=== PATIENT | male | born 1980 | race Caucasian/White ===

== ENCOUNTER → 2018-11-02 12:23 | Outpatient (CLI) | payer BC, SELFPAY ==
[2018-11-02 14:55] LABS: BUN 16 mg/dL (7-18); Creatinine, Serum 1.04 mg/dL (0.70-1.30); EST Glomerular Filtration Rate 85 mL/min (>60); Glucose 105 mg/dL (74-106)
[2018-11-02 14:56] LABS: Anion Gap 11 (5-15); BUN/Creat Ratio 15.4 RATIO (10-20); Calcium,Total 8.7 mg/dL (8.5-10.1); Chloride 102 mmol/L (98-107); Cholesterol 362 mg/dL (200); Est Glom Filt Rate - Afr Amer 103 mL/min (>60); High Density Lipoprotein 30 mg/dL; Potassium 4.2 mmol/L (3.5-5.1); Sodium Level 139 mmol/L (136-145); Triglycerides 977 mg/dL
== END ==
PROVIDERS: Family Provider Family Medicine; PCP Family Medicine; Referring Provider Family Medicine; Visit Provider Family Medicine
DX: Z00.00 Encounter for general adult medical examination without abnormal findings (principal)
CPT/HCPCS: 36415; 80048; 80061

== ENCOUNTER → 2020-07-15 17:14 | Outpatient (CLI) | payer BC, SELFPAY | PROVIDERS: PCP Family Medicine; Visit Provider Family Medicine | DX: Z20.828 Contact with and (suspected) exposure to other viral communicable diseases (principal) | CPT/HCPCS: 87635; U0003 ==

== ENCOUNTER 2020-08-29 08:47 | Emergency (ER) | payer BC, SELFPAY ==
[2020-08-29 08:48] VITALS: BP 149/95; PULSE 83; RESP 18; TEMP 36.4; O2SAT 99; BMI 33.5
--- NOTE | 2020-08-29 09:02 | RAD_ITS ---
STUDY: X-RAY CHEST REASON FOR EXAM: Male, 40 years old. CP, TIGHTNESS DOWN CENTER, BACK PAIN TECHNIQUE: Single AP portable view of the chest. COMPARISON: Comparison is made with prior study dated 10/09/2015. FINDINGS: EKG electrodes are seen. The lungs are clear and expanded. There is no demonstrated pleural abnormality. Normal size heart. Normal mediastinum and paulo. Normal visualized pulmonary arteries. Normal visualized aortic arch and descending thoracic aorta. Normal visualized thoracic spine. Normal visualized ribs, clavicles, and shoulders. There is no demonstrated abnormality of the visualized soft tissue structures of the upper abdomen. RAD/Chest 1 View (Portable) IMPRESSION: Normal x-ray examination of the chest. Electronically Signed: Kyler Connors, at 9:34 EST , Service support ,
--- NOTE | 2020-08-29 09:02 | EKG12_ITS ---
Test Reason : CP Blood Pressure : / mmHG Vent. Rate : 083 BPM Atrial Rate : 083 BPM P-R Int : 160 ms QRS Dur : 094 ms QT Int : 378 ms P-R-T Axes : 043 026 027 degrees QTc Int : 444 ms Normal sinus rhythm Possible Inferior infarct , age undetermined Abnormal ECG Confirmed by YULY GARCIA, ROSA ELENA ([id number]), assignment desk editor MAX OSORIO ([id number]) on 08/30/2020 2:09:39 PM Referred By: AMITA Confirmed By:ROSA ELENA EMERY MD
--- NOTE | 2020-08-29 09:02 | ED.VIS.GEN ---
History of Present Illness Chief Complaint: Chest Pain Informant: Patient Narrative: 40-year-old male with a history of hypercholesterolemia and a tobacco chewer presents for the evaluation of chest pain and upper back tightness. He states for the past couple weeks he has had a midsternal discomfort that he states is very difficult to describe. He saw his primary care physician on Wednesday had an EKG and was told that it was abnormal and is waiting insurance prior authorization to schedule a stress test. He states about a month ago he was in [employer] and he states that the exercises did not cause him to have any chest pain. Nothing seems to make the pain come on. It is intermittent. Last night he began to have upper back discomfort. It was present again this morning but he wanted to be evaluated. Past Medical History - Allergies and Home Meds Allergies/Adverse Reactions: Allergies No Known Allergies Allergy (Verified 08/29/20 08:48) Primary Care Physician: Dusty Martinez MD [Primary Care Provider] - Past Medical History: - - Hypercholesterolemia Lives: Spouse/ Significant Other Smoking Status: Never smoker Drugs: None Review of Systems General: Denies: Chills, Fever, Sweats Eyes: Denies: Visual changes - bilaterally, Diplopia ENT: Denies: Rhinorrhea, Sore throat Cardiovascular: Reports: Chest pain. Denies: Palpitations Respiratory: Denies: Dyspnea, Cough, Dyspnea on exertion Gastrointestinal: Denies: Abdominal pain, Nausea, Vomiting, Diarrhea, Melena, Hematochezia Genitourinary: Denies: Dysuria, Hematuria, Frequency Musculoskeletal: Reports: Back pain. Denies: Extremity Pain Skin: Denies: Rash, Wounds Neurological: Denies: Headache, Weakness, Numbness Physical Exam Vital Signs/Narrative: Vital Signs Temp Pulse Resp BP Pulse Ox 08/29/20 08:48 97.5 F L 83 18 149/95 H 99 Inital Vital Signs reviewed: Yes General: Well nourished, Well developed, No Acute Distress Head: Normocephalic, Atraumatic Eyes: Perrl, EOMI ENT: Moist mucous membranes, No rhinorrhea Neck: Supple, Nontender Cardiovascular: Regular rate, Regular rhythm, No murmurs Respiratory: No distress, CTA bilaterally, Chest nontender Abdomen: Soft, Nontender, Nondistended, Normal bowel sounds Back: Nontender, Normal Inspection Extremities: Nontender, No edema Skin: Normal color, No rash Neurological: Alert, Oriented x3, Cranial nerves II-XII grossly intact, Normal Strength, Normal Sensation Psychological: Normal affect, Normal Mood Diagnostic/Tx/Re-eval Clinical Impression(s) from Imaging Studies Chest X-Ray 08/29/20 09:02 IMPRESSION: Normal x-ray examination of the chest. Electronically Signed: Kyler Connors, at 9:34 EST , Service support , Laboratory Last Values WBC 6.2 K/mm3 (4.4-11.0) 08/29/20 08:54 RBC 5.31 M/mm3 (4.6-6.2) 08/29/20 08:54 Hgb 15.7 g/dL (13.0-16.5) 08/29/20 08:54 Hct 45.7 % (40-54) 08/29/20 08:54 MCV 86.1 fL (80-94) 08/29/20 08:54 MCH 29.6 pg (27.0-32.0) 08/29/20 08:54 MCHC 34.4 g/dL (32-36) 08/29/20 08:54 RDW Std Deviation 38.5 fl (35.1-43.9) 08/29/20 08:54 RDW Coeff of Kenny 12.3 % (11.6-14.6) 08/29/20 08:54 Plt Count 201 K/mm3 (150-450) 08/29/20 08:54 MPV 9.3 fl (6.2-12.0) 08/29/20 08:54 Immature Gran % (Auto) 0.300 % (0.0-0.9) 08/29/20 08:54 Neut % (Auto) 49.5 % (47-70) 08/29/20 08:54 Lymph % (Auto) 44.3 % (19-41) H 08/29/20 08:54 [place] % (Auto) 4.1 % (0-10) 08/29/20 08:54 Eos % (Auto) 1.3 % (0-5) 08/29/20 08:54 Baso % (Auto) 0.5 % (0-1) 08/29/20 08:54 Absolute Neuts (auto) 3.1 X10^3/uL (2.0-7.7) 08/29/20 08:54 Absolute Lymphs (auto) 2.73 X10^3/uL (0.83-4.51) 08/29/20 08:54 Nucleated RBC % 0 % (0-5) 08/29/20 08:54 D-Dimer Quant (PE/DVT) <= 0.27 FEU/ug/m (0.27-0.49) 08/29/20 08:54 Sodium 137 mmol/L (136-145) 08/29/20 08:54 Potassium 4.1 mmol/L (3.5-5.1) 08/29/20 08:54 Chloride 102 mmol/L (98-107) 08/29/20 08:54 Carbon Dioxide 28.0 mmol/L (21.0-32.0) 08/29/20 08:54 Anion Gap 7 (5-15) 08/29/20 08:54 BUN 23 mg/dL (7-18) H 08/29/20 08:54 Creatinine 1.12 mg/dL (0.70-1.30) 08/29/20 08:54 Estim Creat Clear Calc 93.38 ml/min 08/29/20 08:54 Est GFR (MDRD) Af Amer 93 mL/min (>60) 08/29/20 08:54 Est GFR (MDRD) Non-Af 77 mL/min (>60) 08/29/20 08:54 BUN/Creatinine Ratio 20.5 RATIO (10-20) H 08/29/20 08:54 Glucose 117 mg/dL (74-106) H 08/29/20 08:54 Calcium 9.4 mg/dL (8.5-10.1) 08/29/20 08:54 Troponin I < 0.015 ng/mL (<0.045) 08/29/20 08:54 - EKG Initial EKG Interpretation: Sinus Rhythm - EKG demonstrates a normal sinus rhythm with a rate of 83. There are no concerning features of ACS or ectopy noted. - Medical Decision Making My interpretation of the plain film of the chest is no acute process. The radiologist reviewed and concurs. Troponin D-dimer negative. His heart score then is 1. We had shared decision-making regarding admission versus outpatient stress testing. He is elected outpatient stress testing which I think is reasonable. Primary care physician was updated. Patient encouraged to return if worsening or concerns. ED Disposition - Plan for ED Patient: Disposition: Home or Assisted Living Diagnosis: Chest pain Instructions: ED Chest Pain, Uncertain Cause Referrals: Dusty Martinez MD [Primary Care Provider] - Keep Charissa appointment
[2020-08-29 09:08] LABS: Absolute Lymphocyte Count 2.73 X10^3/uL (0.83-4.51); Absolute Neutrophil Count 3.1 X10^3/uL (2.0-7.7); Basophil# 0.03 X10^3/uL; Basophil% 0.5 % (0-1); Eosinophil# 0.08 X10^3/uL; Eosinophils% 1.3 % (0-5); Hematocrit 45.7 % (40-54); Hemoglobin 15.7 g/dL (13.0-16.5); Lymphocyte # 2.73 X10^3/ul (4.0); Lymphocyte % 44.3 % (19-41); Mean Corp Hgb Conc 34.4 g/dL (32-36); Mean Corpuscular Hgb 29.6 pg (27.0-32.0); Mean Corpuscular Volume 86.1 fL (80-94); Mean Platelet Vol. 9.3 fl (6.2-12.0); Monocyte# 0.25 X10^3/uL; Monocyte% 4.1 % (0-10); NRBC Flagged by Analyzer 0 % (0-5); Neutrophil # 3.05 X10^3/uL (2.7-7.7); Neutrophil % 49.5 % (47-70); Platelet Count 201 K/mm3 (150-450); RBC Distribution Width CV 12.3 % (11.6-14.6); RBC Distribution Width SD 38.5 fl (35.1-43.9); Red Blood Count 5.31 M/mm3 (4.6-6.2); White Blood Count 6.2 K/mm3 (4.4-11.0)
[2020-08-29 09:18] LABS: D-Dimer Quantitative (DVT/PE) <= 0.27 FEU/ug/m (0.27-0.49)
[2020-08-29 09:23] LABS: Anion Gap 7 (5-15); BUN 23 mg/dL (7-18); BUN/Creat Ratio 20.5 RATIO (10-20); Calcium,Total 9.4 mg/dL (8.5-10.1); Chloride 102 mmol/L (98-107); Creatinine, Serum 1.12 mg/dL (0.70-1.30); EST Glomerular Filtration Rate 77 mL/min (>60); Est Glom Filt Rate - Afr Amer 93 mL/min (>60); Estimated Creatinine Clearance 93.38 ml/min; Glucose 117 mg/dL (74-106); Potassium 4.1 mmol/L (3.5-5.1); Sodium Level 137 mmol/L (136-145)
[2020-08-29 09:58] VITALS: BP 141/87; PULSE 66; RESP 15; O2SAT 97
== END 2020-08-29 10:04 | disposition home or self-care (01) ==
PROVIDERS: Emergency Provider Emergency Medicine; PCP Family Medicine
DX: R07.9 Chest pain, unspecified (principal); E78.00 Pure hypercholesterolemia, unspecified
CPT/HCPCS: 71045; 80048; 84484; 85025; 85379; 93005; 99284; A4216

== ENCOUNTER → 2020-09-23 09:56 | Outpatient (CLI) | payer BC, SELFPAY ==
[2020-08-29 08:48] VITALS: BMI 33.5
--- NOTE | 2020-09-23 15:41 | STRESSREP ---
Stress Test Report Exercise stress test. 40-year-old man with a history of chest pain. Medications: Sertraline and meloxicam. Stress protocol: Resting EKG demonstrates normal sinus rhythm with a rate of 68 bpm normal intervals are noted resting blood pressure is 142/98 mmHg. The patient exercised according to regular Baudilio protocol for a total duration of 9 minutes and 31 seconds the maximum heart rate attained was 181 bpm which was 100% of max impacted heart rate the maximum workload was 10.9 metabolic equivalents. Patient completed 30 seconds into stage IV of the Baudilio protocol. At rest there were no ST or T wave changes noted suggest ischemia at peak exercise upsloping ST changes only were noted with no meet the criteria for ischemia. No clinical angina was noted the test was terminated due to leg fatigue. The peak blood pressure was 198/82 mmHg. Conclusion: Exercise stress test with no EKG criteria for ischemia at a high workload. No clinical angina noted. Good functional capacity.
== END ==
PROVIDERS: PCP Family Medicine; Referring Provider Family Medicine; Visit Provider Family Medicine
DX: R07.9 Chest pain, unspecified (principal)
CPT/HCPCS: 93017

== ENCOUNTER → 2020-11-11 15:30 | Outpatient (CLI) | payer BC, SELFPAY | LOC: MFPLAB 15:32 → LABSPEC 15:33 | PROVIDERS: PCP Family Medicine; Referring Provider Family Medicine; Visit Provider Family Medicine | DX: Z20.822 Contact with and (suspected) exposure to COVID-19 (principal) | CPT/HCPCS: 87635; U0005; U0003 ==

== ENCOUNTER 2021-11-27 08:33 | Outpatient (CLI) | payer BC, SELFPAY ==
[2021-11-27 11:51] LABS: ALB/GLOB Ratio 1.5 RATIO (0.9-2.4); AST(SGOT) 47 U/L (15-37); Alanine Aminotransfer ALT/SGPT 61 U/L (16-61); Albumin, Serum 4.4 g/dL (3.2-5.0); Alkaline Phosphatase 88 U/L (45-117); Anion Gap 7 (5-15); BUN 18 mg/dL (7-18); BUN/Creat Ratio 17.5 RATIO (10-20); Chloride 105 mmol/L (98-107); Cholesterol 270 mg/dL (200); Creatinine, Serum 1.03 mg/dL (0.70-1.30); EST Glomerular Filtration Rate 84 mL/min (>60); Est Glom Filt Rate - Afr Amer 102 mL/min (>60); Glucose 156 mg/dL (74-106); High Density Lipoprotein 19 mg/dL; Potassium 4.4 mmol/L (3.5-5.1); Protein, Total 7.4 g/dL (6.4-8.2); Sodium Level 136 mmol/L (136-145); Triglycerides 1642 mg/dL
== END 2021-11-27 23:59 | disposition home or self-care (01) ==
LOC: MFPLAB 08:34
PROVIDERS: PCP Family Medicine; Referring Provider Family Medicine; Visit Provider Family Medicine
DX: E78.5 Hyperlipidemia, unspecified (principal)
CPT/HCPCS: 36415; 80053; 80061

== ENCOUNTER → 2022-03-02 | Outpatient (CLI) | payer BC, SELFPAY ==
[2022-03-02 15:23] LABS: Absolute Lymphocyte Count 2.35 X10^3/uL (0.83-4.51); Absolute Neutrophil Count 2.9 X10^3/uL (2.0-7.7); Basophil# 0.04 X10^3/uL; Basophil% 0.7 % (0-1); Eosinophil# 0.07 X10^3/uL; Eosinophils% 1.3 % (0-5); Hematocrit 41.2 % (40-54); Hemoglobin 13.7 g/dL (13.0-16.5); Lymphocyte # 2.35 X10^3/ul (0.83-4.51); Mean Corp Hgb Conc 33.3 g/dL (32-36); Mean Corpuscular Hgb 28.8 pg (27.0-32.0); Mean Corpuscular Volume 86.7 fL (80-94); Mean Platelet Vol. 9.4 fl (6.2-12.0); Monocyte# 0.23 X10^3/uL; Monocyte% 4.1 % (0-10); NRBC Flagged by Analyzer 0 % (0-5); Neutrophil # 2.89 X10^3/uL (2.7-7.7); Neutrophil % 51.5 % (47-70); Platelet Count 165 K/mm3 (150-450); RBC Distribution Width CV 13.9 % (11.6-14.6); RBC Distribution Width SD 44.3 fl (35.1-43.9); Red Blood Count 4.75 M/mm3 (4.6-6.2); White Blood Count 5.6 K/mm3 (4.4-11.0)
[2022-03-02 15:47] LABS: ALB/GLOB Ratio 1.6 RATIO (0.9-2.4); AST(SGOT) 38 U/L (15-37); Alanine Aminotransfer ALT/SGPT 50 U/L (16-61); Albumin, Serum 4.5 g/dL (3.2-5.0); Alkaline Phosphatase 80 U/L (45-117); Anion Gap 8 (5-15); BUN 17 mg/dL (7-18); BUN/Creat Ratio 16.7 RATIO (10-20); Calcium,Total 9.3 mg/dL (8.5-10.1); Chloride 103 mmol/L (98-107); Cholesterol 311 mg/dL (200); Creatinine, Serum 1.02 mg/dL (0.70-1.30); EST Glomerular Filtration Rate 85 mL/min (>60); Est Glom Filt Rate - Afr Amer 103 mL/min (>60); Globulin 2.8 g/dL (2.2-4.2); Glucose 115 mg/dL (74-106); High Density Lipoprotein 24 mg/dL; Lipase 126 U/L (73-393); Protein, Total 7.3 g/dL (6.4-8.2); Sodium Level 137 mmol/L (136-145); Triglycerides 927 mg/dL
== END | disposition home or self-care (01) ==
LOC: MFPLAB 11:11
PROVIDERS: PCP Family Medicine; Visit Provider Family Medicine
DX: R10.9 Unspecified abdominal pain (principal); E78.5 Hyperlipidemia, unspecified
CPT/HCPCS: 36415; 80053; 80061; 83690; 85025

== ENCOUNTER → 2022-03-06 | Outpatient (CLI) | payer BC, SELFPAY ==
[2022-03-06 17:39] LABS: Absolute Lymphocyte Count 2.36 X10^3/uL (0.83-4.51); Basophil# 0.03 X10^3/uL; Basophil% 0.5 % (0-1); Eosinophil# 0.06 X10^3/uL; Hematocrit 42.4 % (40-54); Hemoglobin 14.4 g/dL (13.0-16.5); Lymphocyte # 2.36 X10^3/ul (0.83-4.51); Lymphocyte % 40.7 % (19-41); Mean Corpuscular Volume 85.5 fL (80-94); Mean Platelet Vol. 9.4 fl (6.2-12.0); Monocyte# 0.31 X10^3/uL; Monocyte% 5.3 % (0-10); NRBC Flagged by Analyzer 0 % (0-5); Neutrophil # 3.03 X10^3/uL (2.7-7.7); Neutrophil % 52.3 % (47-70); Platelet Count 168 K/mm3 (150-450); RBC Distribution Width CV 13.7 % (11.6-14.6); RBC Distribution Width SD 42.5 fl (35.1-43.9); Red Blood Count 4.96 M/mm3 (4.6-6.2); White Blood Count 5.8 K/mm3 (4.4-11.0)
== END | disposition home or self-care (01) ==
LOC: MFPLAB 14:28
PROVIDERS: PCP Family Medicine; Referring Provider Family Medicine; Visit Provider Family Medicine
DX: K92.1 Melena (principal)
CPT/HCPCS: 36415; 85025

== ENCOUNTER → 2022-06-09 | Outpatient (CLI) | payer BC, SELFPAY ==
[2022-06-09 20:40] LABS: CRP < 2.90 mg/L (0.0-3.0)
[2022-06-12 15:08] LABS: Endomysial Antibody IgA Negative (Negative)
[2022-06-12 20:41] LABS: Immunoglobulin A 23 mg/dL (90-386); t-Transglutaminase IgA <2 U/mL (0-3)
== END | disposition home or self-care (01) ==
LOC: MTLAB 14:00
PROVIDERS: PCP Family Medicine; Referring Provider Internal Medicine Gastroenterology; Visit Provider Internal Medicine Gastroenterology
DX: R19.7 Diarrhea, unspecified (principal)
CPT/HCPCS: 36415; 82784; 83516; 86140; 86255

== ENCOUNTER → 2023-06-04 | Outpatient (CLI) | payer OTHER, SELFPAY ==
[2023-06-04 10:38] LABS: Cholesterol 194 mg/dL (200); High Density Lipoprotein 31 mg/dL; Triglycerides 469 mg/dL
== END | disposition home or self-care (01) ==
LOC: MTLAB 09:05
PROVIDERS: PCP Family Medicine; Referring Provider Family Medicine; Visit Provider Family Medicine
DX: E78.1 Pure hyperglyceridemia (principal)
CPT/HCPCS: 36415; 80061

== ENCOUNTER → 2023-12-10 | Outpatient (CLI) | payer OTHER, SELFPAY ==
[2023-12-10 10:24] LABS: Absolute Lymphocyte Count 1.77 X10^3/uL (0.83-4.51); Absolute Neutrophil Count 2.6 X10^3/uL (2.0-7.7); Basophil# 0.02 X10^3/uL; Basophil% 0.4 % (0-1); Eosinophil# 0.04 X10^3/uL; Eosinophils% 0.9 % (0-5); Hematocrit 42.9 % (40-54); Hemoglobin 14.1 g/dL (13.0-16.5); Lymphocyte # 1.77 X10^3/ul (0.83-4.51); Lymphocyte % 37.7 % (19-41); Mean Corp Hgb Conc 32.9 g/dL (32-36); Mean Corpuscular Volume 85.1 fL (80-94); Mean Platelet Vol. 9.2 fl (6.2-12.0); Monocyte# 0.28 X10^3/uL; NRBC Flagged by Analyzer 0 % (0-5); Neutrophil # 2.57 X10^3/uL (2.7-7.7); Neutrophil % 54.6 % (47-70); Platelet Count 156 K/mm3 (150-450); RBC Distribution Width CV 14.3 % (11.6-14.6); RBC Distribution Width SD 44.2 fl (35.1-43.9); Red Blood Count 5.04 M/mm3 (4.6-6.2); White Blood Count 4.7 K/mm3 (4.4-11.0)
[2023-12-14 12:09] LABS: ANTINUCLEAR ANTIBODIES DIRECT Negative (Negative); Anti-Histone Abs 0.7 Units (0.0-0.9)
== END | disposition home or self-care (01) ==
LOC: MFPLAB 08:50
PROVIDERS: PCP Family Medicine; Visit Provider Family Medicine
DX: J32.9 Chronic sinusitis, unspecified (principal)
CPT/HCPCS: 36415; 85025; 86038; 86235; 86431

== ENCOUNTER 2025-06-10 09:42 | Emergency (ER) | payer OTHER, SELFPAY ==
[2025-06-10 09:43] VITALS: BP 140/97; PULSE 67; RESP 18; TEMP 35.5; O2SAT 98; BMI 32.4
--- NOTE | 2025-06-10 09:52 | EDS_ITS ---
HPI History of Present Illness Chief Complaint: Hyperglycemia Narrative Narrative: 44-year-old male past medical history of prediabetes, presents with his because of fatigue, dry mouth, polydipsia, and blurry vision. His mother has a blood glucose monitor and his blood sugar was elevated in the 300s. This morning he woke up, and they checked his blood sugar and it was elevated in the 300s as well. He presents to the emergency department with concern for new onset diabetes. No exacerbating or alleviating factors. PFSH PFSH Home Medications ?Medication ?Instructions ?Recorded ?Last Taken ?Type meloxicam 15 mg tablet 15 mg PO DAILY 08/29/20 Unkn own History rosuvastatin 40 mg tablet 40 mg PO QHS 08/29/20 Unknow n History sertraline 50 mg tablet 75 mg PO DAILY 08/29/20 Unkn own History benzonatate 200 mg capsule 200 mg PO TID PRN cough #20 caps 10/15/23 Unknown Rx methylprednisolone 4 mg tablets in See Rx Instructions PO PER PKG DIR 10/15/23 Unknown Rx a dose pack (Medrol (Dequan)) #21 tabs metformin 500 mg tablet 500 mg PO BID #60 tabs 06/10 Unknown Rx Allergy/AdvReac Type Severity Reaction Status Date / Time No Known Allergies Allergy Verified 06/10/25 09:43 Social History Smoking Status: Former smoker ROS ROS ED ROS Narrative Review of systems positive for dry mouth, polydipsia and perhaps polyuria. Positive fatigue. Blurry vision intermittently for 2 weeks. No fevers or chills, no nausea or vomiting, no abdominal pain. No exacerbating or alleviating factors. EXAM Physical Exam Narrative Exam Narrative: Afebrile. Vital signs noted. Nontoxic-appearing. Cardiovascular examination reveals a regular rate and rhythm. Lungs are clear to auscultation bilaterally. Abdomen is soft and nontender without guarding or rebound. Positive bowel sounds. Neurological examination is nonfocal, nonlateralizing. Awake, alert, oriented, appropriate. Const Vital Signs: 06/10/25 09:43 06/10/25 09:51 Temperature 96 F L Temperature Source Temporal Pulse Rate 67 Respiratory Rate 18 Respiratory Effort Normal Respiratory Pattern Normal Blood Pressure 140/97 H Blood Pressure Mean 111 Pulse Ox 98 Oxygen Delivery Method Room Air MDM MDM MDM Narrative Medical decision making narrative: Differential diagnosis includes but not limited to new onset type 2 diabetes/insulin resistance versus dehydration versus other electrolyte abnormality. History and physical favors new onset diabetes. CBC and CMP will be checked initially. Patient bolused normal saline 1 L intravenously. I reviewed his laboratory work and he has normal white count of 5.1 with hemoglobin 13.8, hematocrit slightly low at 38.6 and platelet count normal at 209. CMP is significant for sodium of 129 and chloride 94 with elevated glucose of 272. Anion gap normal at 15. AST and ALT slightly elevated but in review of prior labs, they have been slightly elevated in the past, mainly AST. I discussed patient with Dr. Faustin who agrees with giving the patient metformin 500 mg here, and writing a prescription to take 500 mg twice daily until seen in follow-up on Wednesday. I feel he can be discharged safely home with follow-up. Return instructions reviewed. Disposition is discharged home in stable condition. History & Record Review Discussion w/independent historian: Patient and Family Lab Data Attestation: I reviewed the patient's lab results. Labs: Laboratory Results - last 24 hr 06/10/25 10:00 WBC 5.1 RBC 4.74 Hgb 13.8 Hct 38.6 L MCV 81.4 MCH 29.1 MCHC 35.8 RDW Std Deviation 36.4 RDW Coeff of Kenny 12.4 Plt Count 209 MPV 9.9 Immature Gran % (Auto) 0.400 Neut % (Auto) 50.1 Lymph % (Auto) 42.6 H [place] % (Auto) 4.3 Eos % (Auto) 2.0 Baso % (Auto) 0.6 Absolute Neuts (auto) 2.6 Absolute Lymphs (auto) 2.17 Nucleated RBC % 0.4 Sodium 129 L Potassium 4.1 Chloride 94 L Carbon Dioxide 19.9 L Anion Gap 15 BUN 16 Creatinine 1.01 Estim Creat Clear Calc 118.71 Est GFR (MDRD) Non-Af 94 BUN/Creatinine Ratio 15.8 Glucose 272 H Calcium 9.1 Total Bilirubin 0.43 AST 40 H ALT 62 H Alkaline Phosphatase 128 Total Protein 6.4 Albumin 4.3 Globulin 2.1 L Albumin/Globulin Ratio 2.1 Discharge Plan Triage Chief Complaint: Hyperglycemia ED Provider: Dominic Razo Dx/Rx/DC Orders Clinical Impression: New onset type 2 diabetes mellitus, Insulin resistance syndrome Instructions: ED Diet: Diabetes, ED Hyperglycemia New Poss Diabetes Prescriptions: New metformin 500 mg tablet 500 mg PO BID Qty: 60 0RF No Action methylprednisolone [Medrol (Dequan)] 4 mg tablets,dose pack See Rx Instructions PO PER PKG DIR Qty: 21 0RF Rx Instructions: PO PER PKG DIR benzonatate 200 mg capsule 200 mg PO TID PRN (Reason: cough) Qty: 20 0RF meloxicam 15 MG tablet 15 mg PO DAILY sertraline 50 MG tablet 75 mg PO DAILY rosuvastatin 40 MG tablet 40 mg PO QHS Primary Care Provider: Preston Faustin Referrals: Dusty Martinez MD [Med Staff - Active Staff, Family Practice] Activity Restrictions/Additional Instructions: Follow-up with Dr. Faustin on Wednesday as scheduled Print Language: Kyrgyz Disposition Disposition: Home, Self Care
[2025-06-10] MEDS: 0.9% Normal Saline (1000mL) 1,000 ML 999 ML IV (10:00)
--- OUTSIDE RECORDS SUMMARY | 2025-06-10 10:11 | XMS RPT_ITS | CCD ---
Author Organization [facility] Care Team Providers Care Director Stars Name Role Phone Dr. Dusty Martinez Primary Care Provider Dr. Dusty Martinez Referring Provider [phone] JOYCE Aj Attending Provider Dusty Martinez Referring Unavailable Dusty Martinez Primary Care Unavailable Jeff Aj Attending Unavailable Lien Cabrera Referring Unavailable Lien Cabrera Attending Unavailable Dusty Martinez Primary Care Unavailable Lien Cabrera Attending Unavailable Dusty Martinez Primary Care Unavailable Unavailable Primary Care Provider UnavailShiva Mak MD Primary Care Provider Podlogar TEST DESK SUPERVISOR.Yolanda DEAN Unavailable Knoble TEST DESK SUPERVISOR.Lani DEAN Unavailable SHIVA FAUSTIN Attending UnavailSHIVA Pinto Primary Care Unavailab SHIVA Toribio Referring Unavailab SHIVA Toribio Primary Care Unavailab SHIVA Toribio Primary Care Unavailab SHIVA Toribio Attending Unavailab SHIVA Toribio Primary Care Unavailab MIGNON Majano Attending Unavailable SHIVA FAUSTIN Primary Care UnavailSHIVA Pinto Referring Unavailab SHIVA Toribio Primary Care Unavailab le Allergies Allergy Classification Reported Allergen(s) Allergy Type Date of Onset Reaction(s) Facility (10 sources) rosuvastatin; Translations: [ROSUVASTATIN] Drug Allergy 07-12-2024 Myalgia [facility] Medications Current Medications Medication Drug Class(es) Dates Sig (Normalized) Sig (Original) atorvastatin 40 mg oral tablet (4 sources) HMG-CoA Reductase Inhibitor Start: 5 End: 5 take 1 tablet by mouth once daily atorvastatin (LIPITOR) 40 mg tablet Indications: Hyperlipidemia, unspecified hyperlipidemia type Take 1 tablet by mouth once daily. 90 tablet 1 10/16/2024 04/14/2025 Active benzonatate 200 mg oral capsule (1 source) Non-narcotic Antitussive Start: 4 take 200 mg by mouth three times daily Benzonatate Active 200 MG PO THREE TIMES A DAY October 15, 2023 1:00am doxycycline hyclate 100 mg oral tablet (1 source) Tetracycline-class Drug Start: 4 End: 4 take 1 tablet by mouth twice daily doxycycline (VIBRA-TABS) 100 mg tablet Indications: Rhinosinusitis Take 1 tablet by mouth two times a day for 7 days. 14 tablet 07/30/2024 08/06/2024 Active fenofibrate 145 mg oral tablet (8 sources) Peroxisome Proliferator Receptor alpha Agonist Start: 4 End: 5 take 1 tablet by mouth once daily fenofibrate nanocrystallized (TRICOR) 145 mg tablet Indications: Hyperlipidemia, unspecified hyperlipidemia type Take 1 tablet by mouth once daily. 90 tablet 1 10/16/2024 04/14/2025 Active meloxicam 15 mg oral tablet (4 sources) Nonsteroidal Anti-inflammatory Drug Start: 0 take 15 mg by mouth once daily Meloxicam Active 15 MG PO DAILY August 29, 2020 1:00am methylPREDNISolone (2 sources) Corticosteroid Start: 4 End: 4 methylPREDNISolone (MEDROL, ELADIO,) 4 mg Dose-Pack Indications: Poison karla dermatitis Follow dosing instructions, take with food. 21 tablet 05/23/2024 05/29/2024 Active Start: 10-15-2023 take 1 tablet by mouth once Me thylprednisolone (Medrol (Eladio)) 4 mg tablets,dose pack Active 0 PO per package directions October 15, 2023 1:00am PO PER PKG DIR omeprazole 40 mg delayed release oral capsule (15 sources) Proton Pump Inhibitor Start: 10-20-2024 End: 03-25-2025 take 1 capsule by mouth once daily omeprazole (PRILOSEC) 40 mg capsule Indications: Gastroesophageal reflux disease, unspecified whether esophagitis present Take 1 capsule by mouth once daily. 90 capsule 12/25/2024 03/25/2025 Active Start: 04-24-2024 End: 10-20-2024 take 1 capsule by mouth once daily omeprazole (PRILOSEC) 20 mg capsule Take 1 capsule by mouth once daily. 90 capsule 1 07/12/2024 10/20/2024 Discontinued rosuvastatin calcium 40 mg oral tablet (4 sources) HMG-CoA Reductase Inhibitor Start: 08-29-2020 take 40 mg by mouth at bedtime Rosuvastatin Active 40 MG PO AT BEDTIME August 29, 2020 1:00am sertraline 50 mg oral tablet (17 sources) Serotonin Reuptake Inhibitor Start: 12-25-2024 sertraline (ZOLOFT) 50 mg tablet Indications: Adverse effect of drug, initial encounter Take 1 tablet by mouth once daily. Take one half tablet for 1-2 weeks then take one tablet daily 90 tablet 3 12/25/2024 Active Start: 11-05-2023 End: 12-25-2024 take 1 tablet by mouth once daily in the evening sertraline (ZOLOFT) 100 mg tablet Take 1 tablet by mouth once daily. 90 tablet 3 04/28/2024 6:31 PM EDT 11/05/2023 12/25/2024 Discontinued Start: 08-29-2020 take 75 mg by mouth once daily Sertraline Active 75 MG PO DAILY August 29, 2020 1:00am Completed/Discontinued Medications Medication Drug Class(es) Dates Sig (Normalized) Sig (Original) pitavastatin calcium 4 mg oral tablet (13 sources) HMG-CoA Reductase Inhibitor Start: 07-16-2023 End: 01-02-2025 take 1 tablet by mouth once daily pitavastatin (LIVALO) 4 mg tablet Take 1 tablet by mouth once daily. 90 tablet 3 07/12/2024 01/02/2025 Discontinued (Course of therapy completed) Problems Active Problems Problem Classification Problem Date Documented Date Episodic/Chronic Allergic reactions (1 source) Contact dermatitis due to poison karla; Translations: [Allergic contact dermatitis due to plants, except food] 05-23-2024 Episodic Disorders of lipid metabolism (5 sources) Pure hyperglyceridemia; Translations: [Hyperlipidemia] Onset: 06-09-2023 07-12-2024 Chronic E Codes: Adverse effects of medical drugs (1 source) Adverse reaction to drug; Translations: [Adverse effect of unspecified drugs, medicaments and biological substances, initial encounter] 12-25-2024 Episodic Esophageal disorders (3 sources) Gastroesophageal reflux disease; Translations: [Gastro-esophageal reflux disease without esophagitis] Onset: 10-20-2024 10-20-2024 Chronic Headache; including migraine (2 sources) Tension-type headache; Translations: [Tension-type headache, unspecified, not intractable] Onset: 07-12-2024 07-12-2024 Chronic Nonspecific chest pain (4 sources) Chest pain; Translations: [Chest pain, unspecified] 08-30-2020 Episodic Other connective tissue disease (1 source) Muscle spasm of cervical muscle of neck; Translations: [Other muscle spasm] 10-20-2024 Episodic Other connective tissue disease (1 source) Other muscle spasm; Translations: [Muscle spasms of neck] Onset: 10-20-2024 Episodic Other lower respiratory disease (1 source) Persistent cough; Translations: [Persistent cough for 3 weeks or longer] 10-20-2024 Episodic Other nutritional; endocrine; and metabolic disorders (10 sources) Obesity; Translations: [Class 1 obesity without serious comorbidity with body mass index (BMI) of 34.0 to 34.9 in adult, unspecified obesity type] 07-12-2024 Chronic Other nutritional; endocrine; and metabolic disorders (1 source) Body mass index (BMI) 34.0-34.9, adult; Translations: [Class 1 obesity without serious comorbidity with body mass index (BMI) of 34.0 to 34.9 in adult, unspecified obesity type] Onset: 07-12-2024 Chronic Other upper respiratory infections (2 sources) Chronic sinusitis, unspecified; Translations: [Unspecified sinusitis (chronic)] Onset: 12-16-2023 07-30-2024 Chronic Other upper respiratory infections (6 sources) Common cold; Translations: [Acute nasopharyngitis [common cold]] 06-15-2021 Episodic Screening and history of mental health and substance abuse codes (2 sources) Ex-tobacco chewer; Translations: [Personal history of nicotine dependence] Onset: 10-20-2024 10-20-2024 Episodic Unclassified (1 source) Persistent cough for 3 weeks or longer; Translations: [Persistent cough for 3 weeks or longer] Onset: 10-20-2024 Unclassified (1 source) Class 1 obesity without serious comorbidity with body mass index (BMI) of 34.0 to 34.9 in adult, unspecified obesity type; Translations: [Class 1 obesity without serious comorbidity with body mass index (BMI) of 34.0 to 34.9 in adult, unspecified obesity type] Onset: 07-12-2024 Past or Other Problems Problem Classification Problem Date Documented Da te Episodic/Chronic Immunizations and screening for infectious disease (6 sources) Viral screening status; Translations: [Encounter for screening for other viral diseases] Onset: 07-12-2024 07-12-2024 Episodic Results Test Name Value Interpretation Reference Range Facility Lipid 1996 panelon Cholesterol [Mass/Vol] 145 mg/dL Normal <200 [facility] Comment on above: Order Comment: Sridevi skinner Type: BLOOD SPECIMENOrdering Facility: [facility] Address: [address] [place] [address] Result Comment: <200 mg/dL, Desirable 200-239 mg/dL, Borderline high >239 mg/dL, High Performed By: #### 2 4331-1 ####[facility] LABIA [id number] [address] STATES OF [facility] Cholesterol in HDL [Mass/Vol] 25 mg/dL Low >[address] [facility] Comment on above: Order Comment: Sridevi skinner Type: BLOOD SPECIMENOrdering Facility: [facility] Address: [address] [place] [address] Result Comment: 40-5 9 mg/dL, Acceptable >59 mg/dL, High: Negative risk factor for coronary heart disease <40 mg/dL, Low: Positive risk factor for coronary heart disease Performed By: #### 2 4331-1 ####[facility] LABIA [id number] [address] OF [facility] Cholesterol in LDL [Mass/Vol] 60 mg/dL Normal <[address] [facility] Comment on above: Order Comment: Sridevi skinner Type: BLOOD SPECIMENOrdering Facility: [facility] Address: [address] [place] [address] Result Comment: <100 mg/dL, Optimal 100-129 mg/dL, Near optimal/above optimal 130-159 mg/dL, Borderline high 160-189 mg/dL, High >189 mg/dL, Very high Secondary prevention optimal LDL Cholesterol levels are recommended to be < 70 mg/dL Performed By: #### 2 4331-1 ####[facility] LABCLIA [id number] [place] [address] [place] Cholesterol in LDL/Cholesterol in HDL [Mass ratio] 2.40 {ratio} Normal <2.[address] [facility] Comment on above: Order Comment: Speci men Type: BLOOD SPECIMENOrdering Facility: [facility] Address: [address] [place] [address] Result Comment: Kirsten ochoa: 1. National Cholesterol Education Program ATP III Guideline At-A-Glance Quick Desk Reference: National Heart, Lung, and Blood [place]. National Institutes of Health. 2001: NIH Publication No. 01-3305. 2. An International Atherosclerosis Society position paper: global recommendations for the management of dyslipidemia: executive summary, Atherosclerosis. 2014: 232(2):410-413. Performed By: #### 2 4331-1 ####[facility] LABCLIA [id number] [place] [address] [place] Cholesterol in VLDL [Mass/Vol] 60 mg/dL High <[address] [facility] Comment on above: Order Comment: Brindai men Type: BLOOD SPECIMENOrdering Facility: [facility] Address: [address] [place] [address] Performed By: #### 2 4331-1 ####[facility] LABCLIA [id number] [place] [id number] [place] Cholesterol non HDL [Mass/Vol] 120 mg/dL Normal <[address] [facility] Comment on above: Order Comment: Sridevi men Type: BLOOD SPECIMENOrdering Facility: [facility] Address: [address] [place] [address] Result Comment: <130 mg/dL, Optimal 130-159 mg/dL, Near optimal/above optimal 160-189 mg/dL, Borderline high 190-219 mg/dL, High >219 mg/dL, Very high Secondary prevention optimal non HDL Cholesterol levels are recommended to be <100 mg/dL Performed By: #### 2 4331-1 ####[facility] LABCLIA [id number] [address] [place] Cholesterol.total/Chol esterol in HDL [Mass ratio] 5.80 {ratio} High <5.[address] [facility] Comment on above: Order Comment: Speci men Type: BLOOD SPECIMENOrdering Facility: [facility] Address: [address] [place] [address] Performed By: #### 2 4331-1 ####[facility] LABIA [id number] [address] FASTING TIME 12 hrs Normal [facility] Comment on above: Order Comment: Speci men Type: BLOOD SPECIMENOrdering Facility: [facility] Address: [address] [place] [address] Performed By: #### 2 4331-1 ####[facility] LABIA [id number] [address] [place] Triglyceride [Mass/Vol] 299 mg/dL High <[address] [facility] Comment on above: Order Comment: Speci men Type: BLOOD SPECIMENOrdering Facility: [facility] Address: [address] [place] [address] Result Comment: <150 mg/dL, Normal 150-199 mg/dL, Borderline high 200-499 mg/dL, High >499 mg/dL, Very high Performed By: #### 2 4331-1 ####[facility] LABIA [id number] [address] [place] CNOVon 12-25-2024 CNOV Office Visit (INTMWS ) CLIFF SOLORZANO ([id number]) 1980 M Date Time Provider Department 12/25/24 2:20 PM MIGNON RYDER During your visit today, we recorded the following information about you: Pulse Blood pressure Weight 90/minute 133/90 115.6 kg Mignon Ryder APRN.SLIP BRIDGE OPERATOR 12/25/2024 2:45 PM Signed Subjective Patient ID: Daniel is a 44 year old male who presents for mood swings (has been off Zoloft for about 1 month and today noted to be very irritable and feeling panic). HPI Sertraline Withdrawal: - Abruptly discontinued sertraline 50 mg daily about a month ago after 8 years of use. - Experienced lightheadedness and a loopy feeling for a few weeks post-discontinuation. - Currently experiencing mood swings, irritability, and a new onset of panic attacks. - Reports dizziness, muscle aches, and fatigue. - Denies headaches or nausea. - Reports insomnia and brain zaps. - Denies any previous history of panic attacks. - Describes feeling numb and having difficulty concentrating. Palpitations: - Reports palpitations, described as a stronger heartbeat, occurring after meals for the past 6 months. - Sensation of palpitations felt in the throat. - Drinks coffee in the morning; denies excessive caffeine or alcohol consumption. - Currently taking omeprazole, which provides some relief. Was feeling improved so cancelled general surgery appointment. ROS Constitutional: (+) fatigue, (+) sleep disturbance Head: (-) headaches Cardiovascular: (+) palpitations Gastrointestinal: (-) nausea, (-) heartburn Musculoskeletal: (+) myalgia Neurological: (+) dizziness, (+) shakiness, (+) ?brain zaps? Psychiatric: (+) anxiety, (+) panic, (+) irritability, (+) mood swings, (+) agitation, (-) abnormal dreams Objective BP 133/90 Pulse 90 Wt 115.6 kg (254 lb 13.6 oz) SpO2 98% BMI 35.54 kg/m? Physical Exam Vitals and nursing note reviewed. Constitutional: Appearance: Normal appearance. HENT: Head: Normocephalic and atraumatic. Eyes: Conjunctiva/sclera: Conjunctivae normal. Neck: Thyroid: No thyromegaly. Cardiovascular: Rate and Rhythm: Normal rate and regular rhythm. Heart sounds: Normal heart sounds. Pulmonary: Effort: Pulmonary effort is normal. Breath sounds: Normal breath sounds. Skin: General: Skin is warm and dry. Neurological: General: No focal deficit present. Mental Status: He is alert and oriented to person, place, and time. ASSESSMENT/PLAN: 1. Adverse effect of drug, initial encounter - ICD9: E947.9, ICD10: T50.905A (primary diagnosis) Abruptly stopped sertraline due to running out, thinking he no longer needed it about one month ago. Now notes continues withdrawal symptoms. Recommend resuming, taper off slowly if discontinues in the future. Should let us know if not feeling improved. - SERTRALINE 50 MG TABLET 2. Gastroesophageal reflux disease, unspecified whether esophagitis present - ICD9: 530.81, ICD10: K21.9 Recommend reschedule general surgery appointment, continue on PPI which is helping symptoms. - OMEPRAZOLE 40 MG CAPSULE,DELAYED RELEASE Mignon Ryder APRN.CNS Medical Decision Making: Problems: Moderate: 1+ chronic illnesses with change Risk: Moderate: Drug management Medical Decision Making Level: 4 - Moderate Mignon Ryder APRN.SLIP BRIDGE OPERATOR 12/25/2024 2:36 PM Signed - Resume taking Sertraline by starting with 25 mg daily for one to two weeks. - After one to two weeks, increase the Sertraline dose to 50 mg daily. - Continue taking Omeprazole as prescribed; a refill has been provided. - Reschedule your esophageal scope with general surgery to address palpitations after eating. - If symptoms persist or worsen, contact the clinic for further evaluation. Allergies As of Date: 12/25/2024 Noted Allergy Reaction CRESTOR (ROSUVASTATIN) 07/12/2024 17 - Myalgia Date Reviewed: 12/25/2024 Reviewed by: Mignon Ryder APRN.SLIP BRIDGE OPERATOR - Fully Assessed Reason for Visit: mood swings [Other] Cmt: has been off Zoloft for about 1 month and today noted to be very irritable and feeling panic Primary Visit Diagnosis:Adverse effect of drug, initial encounter [T50.905A] Other Visit Diagnosis:Gastroesopha geal reflux disease, unspecified whether esophagitis present [K21.9] Order(s):sertraline (ZOLOFT) 50 mg tabletTake 1 tablet by mouth once daily. Take one half tablet for 1-2 weeks then take one tablet dailyDisp: 90 tabletRfl: 3 omeprazole (PRILOSEC) 40 mg capsuleTake 1 capsule by mouth once daily.Disp: 90 capsuleRfl: 0 Prescriptions as of 12/25/2024 - sertraline (ZOLOFT) 50 mg tablet Take 1 tablet by mouth once daily. Take one half tablet for 1-2 weeks then take one tablet daily - omeprazole (PRILOSEC) 40 mg capsule Take 1 capsule by mouth once daily. - fenofibrate nanocrystallized (TRICOR) 145 mg tablet Take 1 tablet by mouth once daily (more content not included)... Normal [facility] CNOVon 10-20-2024 CNOV Office Visit (FAMPWS ) SOLORZANOCLIFF ([id number]) 1980 M Date Time Provider Department 10/20/24 12:40 PM SHIVA FAUSTIN [facility] During your visit today, we recorded the following information about you: Temperature Pulse Respiration Blood pressure 97.3 degrees 90/minute 12/minute 130/68 Weight Height 114.8 kg 1.803 m Shiva Faustin MD 10/20/2024 3:19 PM Signed Chief Complaint Patient presents with: Same Day Appointment: throat issues- feels heart beat in throat and cough x 2 months HPI Cliff Nemesio Key is a 44 year old male who presents here today for Above Complaints.. Patient states that he has had pulse sensation on his neck just above his sternum after eating and has had intermittent dry cough. Admits to GERD with heartburn which is treated with Omeprazole. Denies dysphagia, odynophagia, early satiety, weight loss, night sweats, chest pain, palpitations, tachycardia. Dry cough occurs about every 30-40 minutes. Admits to some post nasal drip. Does not typically get allergies this time of year. No SOB/wheezing with cough. Quit chewing 6 months ago. Past medical history, appointments, medications, allergies reviewed. Previous Medical History PAST MEDICAL HISTORY Diagnosis Date Anxiety and depression Chewing tobacco use GERD (gastroesophageal reflux disease) History of tobacco use Hyperlipidemia Obesity Tension headache Previous Surgical History PAST SURGICAL HISTORY Procedure Laterality Date COLONOSCOPY 2021 normal Family History FAMILY HISTORY Problem Relation Age of Onset Hyperlipidemia Mother Lymphoma Maternal Grandfather Hypertension Maternal Grandfather Lymphoma Paternal Grandfather No Known Problems Son No Known Problems Daughter Patient Allergies ALLERGIES Allergen Reactions Crestor [Rosuvastat* Myalgia Current Medications Current Outpatient Medications on File Prior to Visit Medication Sig fenofibrate nanocrystallized (TRICOR) 145 mg tablet Take 1 tablet by mouth once daily. atorvastatin (LIPITOR) 40 mg tablet Take 1 tablet by mouth once daily. omeprazole (PRILOSEC) 20 mg capsule Take 1 capsule by mouth once daily. sertraline (ZOLOFT) 100 mg tablet Take 1 tablet by mouth once daily. (Patient taking differently: Take 50 mg by mouth once daily.) pitavastatin (LIVALO) 4 mg tablet Take 1 tablet by mouth once daily. (Patient not taking: Reported on 10/20/2024) No current facility-administered medications on file prior to visit. Social History Social History Tobacco Use Smoking status: Former Current packs/day: 0.50 Average packs/day: 0.5 packs/day for 10.3 years (5.1 ttl pk-yrs) Types: Cigarettes Start date: 07/12/2014 Smokeless tobacco: Former Types: Chew Quit date: 05/2024 Tobacco comments: 1 can every other day for 10 years Vaping Use Vaping status: Never Used Substance Use Topics Alcohol use: Yes Comment: monthly Drug use: Never Review of Symptoms REVIEW OF SYSTEMS See HPI EXAM: BP 130/68 (BP Site: Left Arm, BP Position: Sitting, BP Cuff Size: Large Adult) Pulse 90 Temp 36.3 ?C (97.3 ?F) Resp 12 Ht 180.3 cm (5' 11) Wt 114.8 kg (253 lb) SpO2 97% BMI 35.29 kg/m? General Appearance: Well appearing, alert, in no acute distress, well-hydrated, well nourished.. Skin: Skin color, texture, turgor normal, no suspicious rashes or lesions. Neck: Supple, no adenopathy; thyroid symmetric, normal size, no bruits. Lungs: Lungs clear to auscultation. No wheezing, rhonchi, rales.. Heart: RRR without murmur, gallop, or rubs. No ectopy. Extremities: No deformities, edema, skin discoloration, clubbing or cyanosis. Good capillary refill. Health Maintenance List Depression Screening Never done Anxiety Screening Never done Hepatitis B Vaccine(1 of 3 - 19+ 3-dose series) due on 07/12/2025 DTaP,Tdap,Td Vaccine(2 - Td or Tdap) due on 04/17/2025 Lipid Screening due on 07/12/2029 Influenza Vaccine Completed Hepatitis C Screening Completed HIV Screening Completed Covid-19 Vaccine Completed HPV Vaccine Aged Out ASSESSMENT/PLAN: 1. Gastroesophageal reflux disease, unspecified whether esophagitis present - ICD9: 530.81, ICD10: K21.9 (primary diagnosis) Patient with symptoms of pulsations in his neck after eating and GERD. Normal exam today. Will increase Omeprazole to 40 mg daily and refer for EGD. Patient has history of chewing tobacco use which increases risk of esophageal cancer. - OMEPRAZOLE 40 MG CAPSULE,DELAYED RELEASE - CONSULT TO GENERAL SURGERY 2. Muscle spasms of neck - ICD9: 728.85, ICD10: M62.838 See above. 3. Persistent cough for 3 weeks or longer - ICD9: 786.2, ICD10: R05.3 Suspect 2/2 allergic rhinitis vs GERD. Increase PPI. Start 2nd gen antihistamines OTC. If not improving in 1-2 weeks, notify the office and would check PFTs. 4. Past history of chewing to (more content not included)... Normal [facility] SOLORZANO ([id number]) 1980 M Date Time Provider Department 10/16/24 SHIVA FAUSTIN During your visit today, we recorded the following information about you: Deborah Narayanan RN 10/16/2024 2:11 PM Signed Patient was seen 07/12/24. Pt's total cholesterol and triglycerides were very elevated since patient was off of his pitavastatin for a period of time. Pt was advised to restart pitavastatin as prescribed, with a recheck in 2-3 months. Fenofibrate was also added due to high triglycerides and increased risk for pancreatitis. Pt's requesting an alternative medication to pitavastatin, as it is not covered by his insurance. No recent lipid recheck completed. Does provider wish to order and have pt complete? Patient requesting refill of fenofibrate. Pended. Please call patient with an update to these questions/requests. SOFIE Agee Christopher B, MD 10/16/2024 2:45 PM Signed Based on previous results, would recommend starting lipitor 40 mg daily along with fibrate and recheck labs in 3 months as ordered. Call with side effects, most common being muscle aches. Jenae Jara LPN 10/16/2024 3:32 PM Signed Phoned patient and reviewed results with him. Patient voiced understanding Jenae Jara LPN Allergies As of Date: 10/16/2024 Noted Allergy Reaction CRESTOR (ROSUVASTATIN) 07/12/2024 17 - Myalgia Date Reviewed: 07/12/2024 Reviewed by: Jenae Jara LPN - Fully Assessed Reason for Visit: Medication Request [138] Primary Visit Diagnosis:Hyperlipidem ia, unspecified hyperlipidemia type [E78.5] Order(s):fenofibrate nanocrystallized (TRICOR) 145 mg tabletTake 1 tablet by mouth once daily.Disp: 90 tabletRfl: 1 atorvastatin (LIPITOR) 40 mg tabletTake 1 tablet by mouth once daily.Disp: 90 tabletRfl: 1 LIPID PANEL BASIC [SQLIPB] Order #: [id number] FUTURE Prescriptions as of 10/16/2024 - fenofibrate nanocrystallized (TRICOR) 145 mg tablet Take 1 tablet by mouth once daily. - atorvastatin (LIPITOR) 40 mg tablet Take 1 tablet by mouth once daily. - pitavastatin (LIVALO) 4 mg tablet Take 1 tablet by mouth once daily. - omeprazole (PRILOSEC) 20 mg capsule Take 1 capsule by mouth once daily. - sertraline (ZOLOFT) 100 mg tablet Take 1 tablet by mouth once daily. Problem List As Of Date 10/16/2024 Noted Resolved Obesity [E66.9] Prescriptions ordered this encounter Disp Refills Start End FENOFIBRATE NANOCRYSTALLIZED 145 MG * 90 t* 1 10/16/2024 04/14/2025 Route: ORAL Sig: Take 1 tablet by mouth once daily. ATORVASTATIN 40 MG TABLET 90 t* 1 10/16/2024 04/14/2025 Route: ORAL Sig: Take 1 tablet by mouth once daily. Medications Discontinued During This Encounter Prescriptions - fenofibrate nanocrystallized (TRICOR) 145 mg tablet (Discontinued) Take 1 tablet by mouth once daily. Encounter Status:Closed by JENAE JARA on 10/16/24 [facility] 07-30-2024 [facility] Office Visit (UCTR ) CLIFF SOLORZANO ([id number]) 1980 M Date Time Provider Department 07/30/24 10:45 AM EUNICE MATA [facility] During your visit today, we recorded the following information about you: Temperature Pulse Respiration Blood pressure 97.7 degrees 92/minute 20/minute 114/80 Weight 114.8 kg Eunice Mata APRN.CNP 07/30/2024 11:24 AM Signed CC: Patient presents with: Sinus Problem: Sinus issues, cough, NERI, drainage, chest congestion x 2 weeks HPI: Cliff Solorzano is a 44 year old male who presents to the office with complaint of chest congestion, head congestion, cough, productive, and sinus symptoms for 2 weeks. Symptoms are worsening Associated symptoms includes facial pain/pressure and fatigue. Denies nausea, vomiting , and diarrhea. Treatments tried include nothing so far. with no relief of symptoms. Sick contacts: unknown. History of asthma, frequent episodes of bronchitis, chronic bronchitis, bronchiectasis or COPD: No Smoker: No Seasonal/environmental allergies: No The ROS is otherwise negative. The patient's pmh, medications, allergies, and past visits are reviewed. PHYSICAL EXAM: BP 114/80 Pulse 92 Temp 36.5 ?C (97.7 ?F) Resp 20 Wt 114.8 kg (253 lb 1.4 oz) SpO2 98% BMI 34.66 kg/m? General appearance: alert, cooperative, pleasant, in no acute distress Head: Normocephalic Eyes: EOM's intact, conjunctiva pink and moist, no icterus, sclera white, non-injected Ears: Right ear: External ear/canal- Normal, TM - erythematous. Left ear: External ear/canal- Normal, TM - erythematous Oropharynx:mild erythema, without exudates present, uvula midline Neck: mild cervical adenopathy Heart: Negative. RRR without obvious murmur, gallop, or rubs. No ectopy. Lungs: clear to auscultation, without rales or wheeze, good air exchange PAST MEDICAL HISTORY Diagnosis Date Anxiety and depression Chewing tobacco use GERD (gastroesophageal reflux disease) History of tobacco use Hyperlipidemia Obesity Tension headache PAST SURGICAL HISTORY Procedure Laterality Date COLONOSCOPY 2021 normal ALLERGIES Crestor [Rosuvastatin] MEDICATIONS fenofibrate nanocrystallized (TRICOR) 145 mg tablet Take 1 tablet by mouth once daily. pitavastatin (LIVALO) 4 mg tablet Take 1 tablet by mouth once daily. omeprazole (PRILOSEC) 20 mg capsule Take 1 capsule by mouth once daily. sertraline (ZOLOFT) 100 mg tablet Take 1 tablet by mouth once daily. (Patient taking differently: Take 50 mg by mouth once daily.) FAMILY HISTORY Problem Relation Age of Onset Hyperlipidemia Mother Lymphoma Maternal Grandfather Hypertension Maternal Grandfather Lymphoma Paternal Grandfather No Known Problems Son No Known Problems Daughter Social History Tobacco Use Smoking status: Former Current packs/day: 0.50 Average packs/day: 0.5 packs/day for 10.0 years (5.0 ttl pk-yrs) Types: Cigarettes Start date: 07/12/2014 Smokeless tobacco: Former Types: Chew Quit date: 05/2024 Tobacco comments: 1 can every other day for 10 years Vaping Use Vaping status: Never Used Substance Use Topics Alcohol use: Yes Comment: monthly Drug use: Never ASSESSMENT/PLAN: 1. Rhinosinusitis - ICD9: 473.9, ICD10: J32.9 - DOXYCYCLINE HYCLATE 100 MG TABLET Prescription instructions reviewed with patient as applicable. Potential red flag symptoms discussed with the patient. Reviewed appropriate action plan to take if red flag symptoms occur. Patient agreeable to treatment plan. Eunice Mata APRN.BUNDLE WRAPPER Allergies As of Date: 07/30/2024 Noted Allergy Reaction CRESTOR (ROSUVASTATIN) 07/12/2024 17 - Myalgia Date Reviewed: 07/12/2024 Reviewed by: Jenae Jara LPN - Fully Assessed Reason for Visit: Sinus Problem [99] Cmt: Sinus issues, cough, NERI, drainage, chest congestion x 2 weeks Primary Visit Diagnosis:Rhinosinusit is [J32.9] Order(s):doxycycline (VIBRA-TABS) 100 mg tabletTake 1 tablet by mouth two times a day for 7 days.Disp: 14 tabletRfl: 0 Prescriptions as of 07/30/2024 - doxycycline (VIBRA-TABS) 100 mg tablet Take 1 tablet by mouth two times a day for 7 days. - fenofibrate nanocrystallized (TRICOR) 145 mg tablet Take 1 tablet by mouth once daily. - pitavastatin (LIVALO) 4 mg tablet Take 1 tablet by mouth once daily. - omeprazole (PRILOSEC) 20 mg capsule Take 1 capsule by mouth once daily. - sertraline (ZOLOFT) 100 mg tablet Take 1 tablet by mouth once daily. Problem List As Of Date 07/30/2024 Noted Resolved Obesity [E66.9] Prescriptions ordered this encounter Disp Refills Start End DOXYCYCLINE HYCLATE 100 MG TABLET 14 t* 0 07/30/2024 08/06/2024 Route: ORAL Sig: Take 1 tablet by mouth two times a day for 7 days. Encounter Status:Closed by EUNICE [facility]ATA [facility]30[facility] CLIFF SOLORZANO ( ) 1980 M Date Time Provider Department 07/25/24 SHIVA FAUSTIN [facility] During your visit today, we recorded the following information about you: Halie J Luis [facility] 07/25/2024 3:32 PM Signed Ambulatory Pharmacy Prior Authorization Note Provider Intervention Required?: Yes- [facility] EHP requires prior authorization to be submitted by the provider. EHP Form (Prescription Drug Formulary) Drug: Pitavastastin 4 mg Formulary Alternatives: other statins Additional Information: Please fax completed paperwork to [phone] or email to [email or web address]. [facility] cannot process prior authorizations sent via CoverMyMeds. For questions relating to this submission, please contact [facility] at [phone] Shiva Faustin MD 07/27/2024 12:34 PM Signed I have reviewed his previous PCP's notes and the only other statin I am seeing is Crestor. If he has not been on Lipitor, I would recommend starting him on Lipitor 40 mg daily and then increasing to 80 mg if tolerating after 1 month. If agreeable, will send rx to requested pharmacy. Jenae Jara LPN 07/27/2024 1:25 PM Signed Reviewed message with patient and he voiced understanding. He reports he received a 90 day supply of Pitavastatin so he will call to have the lipitor sent once he is almost out of the pitavastatin. GLENN Busch Christopher B, MD 07/27/2024 1:30 PM Signed Reviewed. Allergies As of Date: 07/25/2024 Noted Allergy Reaction CRESTOR (ROSUVASTATIN) 07/12/2024 17 - Myalgia Date Reviewed: 07/12/2024 Reviewed by: Jenae Jara LPN - Fully Assessed Reason for Visit: Medication Update [1676] Cmt: Prior authorization Prescriptions as of 07/27/2024 - fenofibrate nanocrystallized (TRICOR) 145 mg tablet Take 1 tablet by mouth once daily. - pitavastatin (LIVALO) 4 mg tablet Take 1 tablet by mouth once daily. - omeprazole (PRILOSEC) 20 mg capsule Take 1 capsule by mouth once daily. - sertraline (ZOLOFT) 100 mg tablet Take 1 tablet by mouth once daily. Problem List As Of Date 07/25/2024 Noted Resolved Obesity [E66.9] Encounter Status:Closed by J LUIS AMBROSE [facility] Telephone ([place]) CLIFF SOLORZANO ([id number]) 1980 M Date Time Provider Department 07/13/24 [facility] During your visit today, we recorded the following information about you: Shiva Faustin MD 07/13/2024 12:31 PM Signed Total cholesterol and triglycerides very elevated since patient has been off of his pitavastatin. Recommend restarting as prescribed with recheck in 2-3 months. Would recommend adding on fenofibrate for triglycerides above 500 as he has increased risk for pancreatitis. Will call in rx if agreeable. HIV and hepatitis C screening negative. Other labs unremarkable. Jenae Jara LPN 07/13/2024 3:42 PM Signed VM left for patient to return call to review provider's message. GLENN Busch Beth, LPN 07/13/2024 3:52 PM Signed Patient returned call and went over results, notes from Dr Faustin with understanding. Patient is willing to take the Fenofibrate rx, he uses [facility] for his pharmacy. Patient said the Pitavastatin rx needs to have a Prior authorization done on it. Shiva Faustin MD 07/14/2024 6:59 AM Signed Rx sent for fenofibrate. Recheck labs in 3 months. Please initiate PA for pitavastatin. He has failed crestor in the past and several other statins per his report. Susanne Batista MA 07/18/2024 9:26 AM Signed PA completed for pitavastatin and faxed to [facility]. IZZY Almodovar Elizabeth, MA 07/31/2024 11:54 AM Signed Called [facility] PA line to check status at [phone]. Spoke to staff and they advised is denied due to no documentation of trail/failure for other satin. Patient recently est with office so no records scanned in previously checked before submitting. Left vm for patient to call back will need old records faxed to our office so we can scan in [phone] showing intolerance to ALL statins. Will need name/phone number for pharmacy all past statin filled at to get dates. After all this info received and complete appeal IZZY Almodovar Elizabeth, MA 08/08/2024 10:00 AM Signed Left message again for patient to call back office. Please see note below from 07/31 Susanne Batista MA Allergies As of Date: 07/13/2024 Noted Allergy Reaction CRESTOR (ROSUVASTATIN) 07/12/2024 17 - Myalgia Date Reviewed: 07/12/2024 Reviewed by: Jenae Jara LPN - Fully Assessed Reason for Visit: Results [95] Primary Visit Diagnosis:Hyperlipidem ia, unspecified hyperlipidemia type [E78.5] Order(s):fenofibrate nanocrystallized (TRICOR) 145 mg tabletTake 1 tablet by mouth once daily.Disp: 90 tabletRfl: 0 LIPID PANEL BASIC [SQLIPB] Order #: [id number] FUTURE COMPREHENSIVE METABOLIC PANEL [SQCMP] Order #: [id number] FUTURE Prescriptions as of 08/08/2024 - fenofibrate nanocrystallized (TRICOR) 145 mg tablet Take 1 tablet by mouth once daily. - pitavastatin (LIVALO) 4 mg tablet Take 1 tablet by mouth once daily. - omeprazole (PRILOSEC) 20 mg capsule Take 1 capsule by mouth once daily. - sertraline (ZOLOFT) 100 mg tablet Take 1 tablet by mouth once daily. Problem List As Of Date 07/13/2024 Noted Resolved Obesity [E66.9] Prescriptions ordered this encounter Disp Refills Start End FENOFIBRATE NANOCRYSTALLIZED 145 MG * 90 t* 0 07/14/2024 10/12/2024 Route: ORAL Sig: Take 1 tablet by mouth once daily. Encounter Status:Closed by SUSANNE BATISTA on 08/08/[address] [facility] CBC W Auto Differential pane l (Bld)on 07-12-2024 Basophils (Bld) [#/Vol] 0.04 10*3/uL [facility] Basophils/100 WBC (Bld) 0.6 % [facility] Differential cell count method Nom (Bld) Auto [facility] Eosinophils (Bld) [#/Vol] 0.10 10*3/uL [facility] Eosinophils/100 WBC (Bld) 1.6 % [facility] Erythrocyte distribution width (RBC) [Ratio] 13.1 % 11.5 - 15.0 % [facility] Hematocrit (Bld) [Volume fraction] 45.6 % 39.0 - 51.0 % [facility] Hemoglobin (Bld) [Mass/Vol] 15.4 g/dL 13.0 - 17.0 g/dL [facility] Immature granulocytes (Bld) [#/Vol] 0.03 10*3/uL [facility] Immature granulocytes/100 WBC (Bld) 0.5 % [facility] Lymphocytes (Bld) [#/Vol] 2.74 10*3/uL [facility] Lymphocytes/100 WBC (Bld) 43.1 % [facility] MCH (RBC) [Entitic mass] 28.7 pg 26.0 - 34.0 pg [facility] MCHC (RBC) [Mass/Vol] 33.8 g/dL 30.5 - 36.0 g/dL [facility] MCV (RBC) [Entitic vol] 84.9 fL 80.0 - 100.0 fL [facility] Monocytes (Bld) [#/Vol] 0.31 10*3/uL [facility] Monocytes/100 WBC (Bld) 4.9 % [facility] Neutrophils (Bld) [#/Vol] 3.13 10*3/uL [facility] Neutrophils/100 WBC (Bld) 49.3 % [facility] Nucleated RBC (Bld) [#/Vol] NINF [facility] Nucleated RBC/100 WBC (Bld) [Ratio] 0.0 % /100 WBC [facility] Platelet mean volume (Bld) [Entitic vol] 9.4 fL 9.0 - 12.7 fL [facility] Platelets (Bld) [#/Vol] 183 10*3/uL [facility] RBC (Bld) [#/Vol] 5.37 10*6/uL 4.20 - 6.0 0 m/uL [facility] WBC (Bld) [#/Vol] 6.35 10*3/uL [facility] Basophils (Bld) [#/Vol] 0.04 10*3/uL Normal <0.[address] [facility] Comment on above: Order Comment: Speci men Type: BLOOD SPECIMENOrdering Facility: [facility] Address: [address] [place] [address] Performed By: #### 5 7021-8 ####[facility] LABIA [id number] [place] [address] [place] Basophils/100 WBC (Bld) 0.6 % Normal [facility] Comment on above: Order Comment: Speci men Type: BLOOD SPECIMENOrdering Facility: [facility] Address: [address] [place] [address] Performed By: #### 5 7021-8 ####[facility] LABCLIA [id number] [place] [address] [place] Differential cell count method Nom (Bld) Auto Normal [facility] Comment on above: Order Comment: Speci men Type: BLOOD SPECIMENOrdering Facility: [facility] Address: [address] [place] [address] Performed By: #### 5 7021-8 ####[facility] LABCLIA [id number] [place] [address] [place] Eosinophils (Bld) [#/Vol] 0.10 10*3/uL Normal <0.[address] [facility] Comment on above: Order Comment: Speci men Type: BLOOD SPECIMENOrdering Facility: [facility] Address: [address] [place] [address] Performed By: #### 5 7021-8 ####[facility] LABCLIA [id number] [place] [address] [place] Eosinophils/100 WBC (Bld) 1.6 % Normal [facility] Comment on above: Order Comment: Speci men Type: BLOOD SPECIMENOrdering Facility: [facility] Address: [address] [place] [address] Performed By: #### 5 7021-8 ####[facility] LABCLIA [id number] [place] [address] [place] Erythrocyte distribution width (RBC) [Ratio] 13.1 % Normal 11.5-15.[address] [facility] Comment on above: Order Comment: Speci men Type: BLOOD SPECIMENOrdering Facility: [facility] Address: [address] [place] [address] Performed By: #### 5 7021-8 ####[facility] LABCLIA [id number] [place] [address] [place] Hematocrit (Bld) [Volume fraction] 45.6 % Normal 39.0-51.[address] [facility] Comment on above: Order Comment: Speci men Type: BLOOD SPECIMENOrdering Facility: [facility] Address: [address] [place] [address] Performed By: #### 5 7021-8 ####[facility] LABCLIA [id number] [place] [address] [place] Hemoglobin (Bld) [Mass/Vol] 15.4 g/dL Normal 13.0-17.[address] [facility] Comment on above: Order Comment: Speci men Type: BLOOD SPECIMENOrdering Facility: [facility] Address: [address] [place] [address] Performed By: #### 5 7021-8 ####[facility] LABCLIA [id number] [place] [address] [place] Immature granulocytes (Bld) [#/Vol] 0.03 10*3/uL Normal <0.[address] [facility] Comment on above: Order Comment: Speci men Type: BLOOD SPECIMENOrdering Facility: [facility] Address: [address] [place] [address] Performed By: #### 5 7021-8 ####[facility] LABCLIA [id number] [place] [address] [place] Immature granulocytes/100 WBC (Bld) 0.5 % Normal [facility] Comment on above: Order Comment: Speci men Type: BLOOD SPECIMENOrdering Facility: [facility] Address: [address] [place] [address] Performed By: #### 5 7021-8 ####[facility] LABCLIA [id number] [place] [address] [place] Lymphocytes (Bld) [#/Vol] 2.74 10*3/uL Normal 1.00-4.[address] [facility] Comment on above: Order Comment: Speci men Type: BLOOD SPECIMENOrdering Facility: [facility] Address: [address] [place] [address] Performed By: #### 5 7021-8 ####[facility] LABCLIA [id number] [place] [address] [place] Lymphocytes/100 WBC (Bld) 43.1 % Normal [facility] Comment on above: Order Comment: Speci men Type: BLOOD SPECIMENOrdering Facility: [facility] Address: [address] [place] [address] Performed By: #### 5 7021-8 ####[facility] LABCLIA [id number] [place] [address] [place] MCH (RBC) [Entitic mass] 28.7 pg Normal 26.0-34.[address] [facility] Comment on above: Order Comment: Speci men Type: BLOOD SPECIMENOrdering Facility: [facility] Address: [address] [place] [address] Performed By: #### 5 7021-8 ####[facility] LABIA [id number] [place] [address] [place] MCHC (RBC) [Mass/Vol] 33.8 g/dL Normal 30.5-36.0 [facility] Comment on above: Order Comment: Speci men Type: BLOOD SPECIMENOrdering Facility: [facility] Address: [address] [place] [address] Performed By: #### 5 7021-8 ####[facility] LABIA [id number] [place] [address] [place] MCV (RBC) [Entitic vol] 84.9 fL Normal 80.0-100.[address] [facility] Comment on above: Order Comment: Speci men Type: BLOOD SPECIMENOrdering Facility: [facility] Address: [address] [place] [address] Performed By: #### 5 7021-8 ####[facility] LABIA [id number] [place] [address] [place] Monocytes (Bld) [#/Vol] 0.31 10*3/uL Normal <0.[address] [facility] Comment on above: Order Comment: Speci men Type: BLOOD SPECIMENOrdering Facility: [facility] Address: [address] [place] [address] Performed By: #### 5 7021-8 ####[facility] LABIA [id number] [place] [address] [place] Monocytes/100 WBC (Bld) 4.9 % Normal [facility] Comment on above: Order Comment: Speci men Type: BLOOD SPECIMENOrdering Facility: [facility] Address: [address] [place] [address] Performed By: #### 5 7021-8 ####[facility] LABCLIA [id number] [place] [address] [place] Neutrophils (Bld) [#/Vol] 3.13 10*3/uL Normal 1.45-7.[address] [facility] Comment on above: Order Comment: Speci men Type: BLOOD SPECIMENOrdering Facility: [facility] Address: [address] [place] [address] Performed By: #### 5 7021-8 ####[facility] LABCLIA [id number] [place] [address] [place] Neutrophils/100 WBC (Bld) 49.3 % Normal [facility] Comment on above: Order Comment: Speci men Type: BLOOD SPECIMENOrdering Facility: [facility] Address: [address] [place] [address] Performed By: #### 5 7021-8 ####[facility] LABCLIA [id number] [place] [address] [place] Nucleated RBC (Bld) [#/Vol] 10*3/uL Normal <0.[address] [facility] Comment on above: Order Comment: Speci men Type: BLOOD SPECIMENOrdering Facility: [facility] Address: [address] [place] [address] Performed By: #### 5 7021-8 ####[facility] LABCLIA [id number] [place] [address] [place] Nucleated RBC/100 WBC (Bld) [Ratio] 0.0 /100 WBC [address] [facility] Comment on above: Order Comment: Speci men Type: BLOOD SPECIMENOrdering Facility: [facility] Address: [address] [place] [address] Performed By: #### 5 7021-8 ####[facility] LABCLIA [id number] [address] [address] [place] Platelet mean volume (Bld) [Entitic vol] 9.4 fL Normal 9.0-12.[address] [facility] Comment on above: Order Comment: Speci men Type: BLOOD SPECIMENOrdering Facility: [facility] Address: [address] [place] [address] Performed By: #### 5 7021-8 ####[facility] LABCLIA [id number] [place] [address] [place] Platelets (Bld) [#/Vol] 183 10*3/uL Normal 150-[address] [facility] Comment on above: Order Comment: Speci men Type: BLOOD SPECIMENOrdering Facility: [facility] Address: [address] [place] [address] Performed By: #### 5 7021-8 ####[facility] LABIA [id number] [place] [address] [place] RBC (Bld) [#/Vol] 5.37 10*6/uL Normal 4.20-6.00 [facility] Comment on above: Order Comment: Speci men Type: BLOOD SPECIMENOrdering Facility: [facility] Address: [address] [place] [address] Performed By: #### 5 7021-8 ####[facility] LABIA [id number] [place] [address] [place] WBC (Bld) [#/Vol] 6.35 10*3/uL Normal 3.70-11.00 [facility] Comment on above: Order Comment: Speci men Type: BLOOD SPECIMENOrdering Facility: [facility] Address: [address] [place] [address] Performed By: #### 5 7021-8 ####[facility] LABIA [id number] [place] [address] [place] CNCOon 07-12-2024 CNCO Letter Text Normal [facility] CNOVon 07-12-2024 CNOV Office Visit (FAMPWS ) CLIFF SOLORZANO ([id number]) 1980 M Date Time Provider Department 07/12/24 10:20 AM [facility] During your visit today, we recorded the following information about you: Pulse Blood pressure Weight Height 72/minute 118/80 115.2 kg 1.82 m Shiva Faustin MD 07/15/2024 9:41 AM Signed Chief Complaint Patient presents with: Establish [facility] HPI Cliff Solorzano is a 44 year old male who presents here today for establish care visit. Previous PCP Dusty Martinez with last OV about 6 months ago. Insurance changed so had to switch. Patient complaining today of frequent headaches located over his posterior neck with radiation around the top and sides of his head. Occurs almost daily. Can occur in morning or evening. Associated with nausea without vomiting. Denies vision changes, photophobia, phonophobia, aura head or neck injury. Treating with ibuprofen and lying down helps with pain. Requesting refill on Livalo for history of hyperlipidemia. Ran out about 1 month ago. Has failed other statins including Crestor. Doing well on current regimen. Patient taking 50 mg of zoloft daily for history of anxiety and depression which is working well. Diagnosed 10 years ago. Denies SI/HI, panic symptoms. Used to be on 100 mg daily and lowered dosage on his own. Has considered weaning off entirely. History of GERD controlled with prilosec 20 mg daily. Colonoscopy completed 2 years ago which was normal. Past medical history, appointments, medications, allergies reviewed. Previous Medical History PAST MEDICAL HISTORY Diagnosis Date Anxiety and depression Chewing tobacco use GERD (gastroesophageal reflux disease) History of tobacco use Hyperlipidemia Obesity Tension headache Previous Surgical History No past surgical history on file. Family History No family history on file. Patient Allergies ALLERGIES No Known Allergies Current Medications Current Outpatient Medications on File Prior to Visit Medication Sig sertraline (ZOLOFT) 100 mg tablet Take 1 tablet by mouth once daily. (Patient taking differently: Take 50 mg by mouth once daily.) omeprazole (PRILOSEC) 20 mg capsule Take 1 capsule by mouth once daily. pitavastatin (LIVALO) 4 mg tablet Take 1 tablet by mouth once daily. (Patient taking differently: Take 4 mg by mouth once daily. Patient reports he hasn't had medication for a couple months) No current facility-administered medications on file prior to visit. Social History Social History Tobacco Use Smoking status: Never Smokeless tobacco: Current Review of Symptoms REVIEW OF SYSTEMS GENERAL: No weight loss, malaise or fevers RESPIRATORY: Negative for cough, hemoptysis, wheezing, COPD, dyspnea or shortness of breath CARDIOVASCULAR: Negative for chest pain, leg swelling, hypertension, CHF or palpitations GI: No nausea, vomiting, or diarrhea SKIN: Negative for lesions, rash, and itching EXAM: BP 118/80 Pulse 72 Ht 182 cm (5' 11.65) Wt 115.2 kg (254 lb) SpO2 98% BMI 34.78 kg/m? General Appearance: Well appearing, alert, in no acute distress, well-hydrated, well nourished.. Skin: Skin color, texture, turgor normal, no suspicious rashes or lesions. Neck: normal ROM without TTP over cervical spine or paraspinal muscles. Mild pain with ROM. Head: normocephalic, atraumatic. Lungs: Lungs clear to auscultation. No wheezing, rhonchi, rales.. Heart: RRR without murmur, gallop, or rubs. No ectopy. Abdomen: Normal abdominal exam, Abdomen soft, non-tender. Bowel sounds normal. No masses, organomegaly. Extremities: No deformities, edema, skin discoloration, clubbing or cyanosis. Good capillary refill. Health Maintenance List Depression Screening Never done Anxiety Screening Never done Hepatitis C Screening Never done HIV Screening Never done Hepatitis B Vaccine(1 of 3 - 19+ 3-dose series) Never done Lipid Screening Never done Influenza Vaccine(1) due on 05/21/2024 Covid-19 Vaccine(2023- season) due on 05/21/2024 DTaP,Tdap,Td Vaccine(2 - Td or Tdap) due on 04/17/2025 HPV Vaccine Aged Out ASSESSMENT/PLAN: 1. Encounter for medical examination to establish care - ICD9: V70.9, ICD10: Z00.00 (primary diagnosis) - Counseled on healthy diet and regular exercise - Discussed need for and benefit of weight loss. BMI 34.78 kg/(m2) - Counseled on limiting alcohol intake to 2 drinks per day - Follow up for annual exam in one year - COMPLETE BLOOD COUNT AND DIFFERENTIAL - COMPREHENSIVE METABOLIC PANEL - THYROID STIMULATING HORMONE - HEMOGLOBIN A1C 2. Class 1 obesity without serious comorbidity with body mass index (BMI) of 34.0 to 34.9 in adult, unspecified obesity type - ICD9: 278.00, V85.34, ICD10: E66.811, Z68.34 Stable - Behavioral intervention 3. Tension headaches - ICD9: 307.81, ICD10: (more content not included)... [facility] CLIFF SOLORZANO ([id number]) 1980 M Date Time Provider Department 07/12/24 SHIVA FAUSTIN [facility] During your visit today, we recorded the following information about you: Allergies As of Date: 07/12/2024 Noted Allergy Reaction CRESTOR (ROSUVASTATIN) 07/12/2024 17 - Myalgia Date Reviewed: 07/12/2024 Reviewed by: Jenae Jara LPN - Fully Assessed Prescriptions as of 09/12/2024 - fenofibrate nanocrystallized (TRICOR) 145 mg tablet Take 1 tablet by mouth once daily. - pitavastatin (LIVALO) 4 mg tablet Take 1 tablet by mouth once daily. - omeprazole (PRILOSEC) 20 mg capsule Take 1 capsule by mouth once daily. - sertraline (ZOLOFT) 100 mg tablet Take 1 tablet by mouth once daily. Problem List As Of Date 07/12/2024 Noted Resolved Obesity [E66.9] Encounter Status:Closed by SHIVA FAUSTIN on 09/12/[address] [facility] Cholesterol in LDL Direct as say [Mass/Vol]on 07-12-2024 Cholesterol in LDL [Mass/Vol] 54 mg/dL Normal <[address] [facility] Comment on above: Order Comment: Brindai men Type: BLOOD SPECIMENOrdering Facility: [facility] Address: [address] [place] [address] Result Comment: <100 mg/dL, Optimal 100-129 mg/dL, Near optimal/above optimal 130-159 mg/dL, Borderline high 160-189 mg/dL, High >189 mg/dL, Very high Secondary prevention optimal LDL Cholesterol levels are recommended to be < 70 mg/dL Performed By: #### 3 016-3, 33507-5, 96683-2, 85627-8 ####[facility] LABIA [id number] [place] [address] [place] Cholesterol in VLDL [Mass/Vol] 290 mg/dL High <[address] [facility] Comment on above: Order Comment: Brindai men Type: BLOOD SPECIMENOrdering Facility: [facility] Address: [address] [place] [address] Performed By: #### 3 016-3, 82277-4, 27344-5, 51964-1 ####[facility] LABIA [id number] [place] [address] [place] Comprehensive metabolic 2000 panelon 07-12-2024 Albumin [Mass/Vol] 4.9 g/dL 3.9 - 4.9 g/dL [facility] ALP [Catalytic activity/Vol] 102 U/L 38 - 113 U/L [facility] ALT [Catalytic activity/Vol] 55 U/L High 10 - 54 U/L [facility] Comment on above: Specimen is lipemic. Lipemia removed prior to analysis. Anion gap [Moles/Vol] 14 mmol/L 8 - 15 mmol/L [facility] AST [Catalytic activity/Vol] 30 U/L 14 - 40 U/L [facility] Comment on above: Specimen is lipemic. Lipemia removed prior to analysis. Bilirubin [Mass/Vol] 0.5 mg/dL 0.2 - 1 .3 mg/dL [facility] Calcium [Mass/Vol] 9.9 mg/dL 8.5 - 10. 2 mg/dL [facility] Chloride [Moles/Vol] 102 mmol/L 98 - 10 7 mmol/L [facility] CO2 [Moles/Vol] 25 mmol/L 22 - 30 mmol/L [facility] Creatinine [Mass/Vol] 0.98 mg/dL 0.73 - 1.22 mg/dL [facility] GFR/1.73 sq M.predicted among non-blacks MDRD (S/P/Bld) [Vol rate/Area] 98 mL/min/{1.73_m2} - PINF [facility] Comment on above: Estimated Glomerular Filtration Rate (eGFR) is calculated using the 2020 CKD-EPI creatinine equation. This equation utilizes serum creatinine, sex, and age as parameters. The creatinine assay has traceable calibration to isotope dilution-mass spectrometry. Refer to KDIGO guidelines for clinical interpretation. In patients with unstable renal function, e.g. those with acute kidney injury, the eGFR may not accurately reflect actual GFR. Glucose [Mass/Vol] 91 mg/dL 74 - 99 mg/dL [facility] Comment on above: The [place] Diabete s Association (ADA) provides guidance for cutoff values for fasting glucose and random glucose. The ADA defines fasting as no caloric intake for at least 8 hours. Fasting plasma glucose results between 100 to 125 mg/dL indicate increased risk for diabetes (prediabetes). Fasting plasma glucose results greater than or equal to 126 mg/dL meet the criteria for diagnosis of diabetes. In the absence of unequivocal hyperglycemia, results should be confirmed by repeat testing. In a patient with classic symptoms of hyperglycemia or hyperglycemic crisis, random plasma glucose results greater than or equal to 200 mg/dL meet the criteria for diagnosis of diabetes. Reference: Standards of Medical Care in Diabetes 2016, [place] Diabetes Association. Diabetes Care. 2016.39(Suppl 1). Interpretation and review of laboratory results Abnormal [facility] Potassium [Moles/Vol] 4.3 mmol/L 3.7 - 5.1 mmol/L [facility] Protein [Mass/Vol] 6.2 g/dL Low 6.3 - 8.0 g/dL [facility] Sodium [Moles/Vol] 141 mmol/L 136 - 144 mmol/L [facility] Urea nitrogen [Mass/Vol] 18 mg/dL 9 - 24 mg/dL [facility] Albumin [Mass/Vol] 4.9 g/dL Normal 3.9-4.9 [facility] Comment on above: Order Comment: Speci men Type: BLOOD SPECIMENOrdering Facility: [facility] Address: [address] [place] [address] Performed By: #### 3 016-3, 36878-7, 25745-5, 75968-7 ####[facility] LABIA [id number] [place] [address] [place] ALP [Catalytic activity/Vol] 102 U/L Normal 38-[address] [facility] Comment on above: Order Comment: Speci men Type: BLOOD SPECIMENOrdering Facility: [facility] Address: [address] [place] [address] Performed By: #### 3 016-3, 86092-5, 66261-5, 28366-9 ####[facility] [id number] [place] [address] [place] ALT [Catalytic activity/Vol] 55 U/L High 10-[address] [facility] Comment on above: Order Comment: Speci men Type: BLOOD SPECIMENOrdering Facility: [facility] Address: [address] [place] [address] Result Comment: Spec imen is lipemic. Lipemia removed prior to analysis. Performed By: #### 3 016-3, 98751-6, 20982-3, 83146-7 ####[facility] [id number] [place] [address] [place] Anion gap [Moles/Vol] 14 mmol/L Normal 8-15 [facility] Comment on above: Order Comment: Speci men Type: BLOOD SPECIMENOrdering Facility: [facility] Address: [address] [place] [address] Performed By: #### 3 016-3, 86762-9, 49888-8, 77223-2 ####[facility] LABCLIA [id number] [place] [address] [place] AST [Catalytic activity/Vol] 30 U/L Normal 14-[address] [facility] Comment on above: Order Comment: Speci men Type: BLOOD SPECIMENOrdering Facility: [facility] Address: [address] [place] [address] Result Comment: Spec neno is lipemic. Lipemia removed prior to analysis. Performed By: #### 3 016-3, 19705-2, 98610-5, 29198-4 ####[facility] LABCLIA [id number] [place] [address] [place] Bilirubin [Mass/Vol] 0.5 mg/dL Normal 0.2-1.3 [facility] Comment on above: Order Comment: Speci men Type: BLOOD SPECIMENOrdering Facility: [facility] Address: [address] [place] [address] Performed By: #### 3 016-3, 87243-3, 53411-0, 25704-3 ####[facility] LABCLIA [id number] [place] [address] [place] Calcium [Mass/Vol] 9.9 mg/dL Normal 8.5-10.2 [facility] Comment on above: Order Comment: Speci men Type: BLOOD SPECIMENOrdering Facility: [facility] Address: [address] [place] [address] Performed By: #### 3 016-3, 59268-1, 26270-6, 18467-3 ####[facility] LABCLIA [id number] [place] [address] [place] Chloride [Moles/Vol] 102 mmol/L Normal 98-107 [facility] Comment on above: Order Comment: Speci men Type: BLOOD SPECIMENOrdering Facility: [facility] Address: [address] [place], [place] [address] Performed By: #### 3 016-3, 36906-1, 08817-5, 69200-3 ####[facility] LABIA [id number] [place] [id number] [place] CO2 [Moles/Vol] 25 mmol/L Normal 22-[address] [facility] Comment on above: Order Comment: Speci men Type: BLOOD SPECIMENOrdering Facility: [facility] Address: [address] [place] [address] Performed By: #### 3 016-3, 37567-6, 32838-6, 04594-9 ####[facility] LABIA [id number] [place] [address] [place] Creatinine [Mass/Vol] 0.98 mg/dL Normal 0.73-1.22 [facility] Comment on above: Order Comment: Speci men Type: BLOOD SPECIMENOrdering Facility: [facility] Address: [address] [place] [address] Performed By: #### 3 016-3, 01360-9, 47504-9, 32509-0 ####[facility] LABIA [id number] [place] [address] [place] Creatinine and Glomerular filtration rate.predicted panel (S/P/Bld) 98 mL/min/1.73m??? Normal >=[address] [facility] Comment on above: Order Comment: Speci men Type: BLOOD SPECIMENOrdering Facility: [facility] Address: [address] [place] [address] Result Comment: Yarelis mated Glomerular Filtration Rate (eGFR) is calculated using the 2020 CKD-EPI creatinine equation. This equation utilizes serum creatinine, sex, and age as parameters. The creatinine assay has traceable calibration to isotope dilution-mass spectrometry. Refer to KDIGO guidelines for clinical interpretation. In patients with unstable renal function, e.g. those with acute kidney injury, the eGFR may not accurately reflect actual GFR. Performed By: #### 3 016-3, 46930-2, 22927-1, 37305-2 ####[facility] LABCLIA [id number] [place] [id number] [place] Glucose [Mass/Vol] 91 mg/dL Normal 74-99 [facility] Comment on above: Order Comment: Speci men Type: BLOOD SPECIMENOrdering Facility: [facility] Address: [address] [place] [address] Result Comment: The [place] Diabetes Association (ADA) provides guidance for cutoff values for fasting glucose and random glucose. The ADA defines fasting as no caloric intake for at least 8 hours. Fasting plasma glucose results between 100 to 125 mg/dL indicate increased risk for diabetes (prediabetes). Fasting plasma glucose results greater than or equal to 126 mg/dL meet the criteria for diagnosis of diabetes. In the absence of unequivocal hyperglycemia, results should be confirmed by repeat testing. In a patient with classic symptoms of hyperglycemia or hyperglycemic crisis, random plasma glucose results greater than or equal to 200 mg/dL meet the criteria for diagnosis of diabetes. Reference: Standards of Medical Care in Diabetes 2016, [place] Diabetes Association. Diabetes Care. 2016.39(Suppl 1). Performed By: #### 3 016-3, 53165-5, 27222-7, 95173-4 ####[facility] LABCLIA [id number] [place] [id number] [place] Potassium [Moles/Vol] 4.3 mmol/L Normal 3.7-5.1 [facility] Comment on above: Order Comment: Speci men Type: BLOOD SPECIMENOrdering Facility: [facility] Address: [address] [place] [address] Performed By: #### 3 016-3, 91735-2, 32283-4, 67210-0 ####[facility] LABCLIA [id number] [place] [address] [place] Protein [Mass/Vol] 6.2 g/dL Low 6.3-8.0 [facility] Comment on above: Order Comment: Speci men Type: BLOOD SPECIMENOrdering Facility: [facility] Address: [address] [place], [place] [address] Performed By: #### 3 016-3, 53774-7, 38396-4, 98180-2 ####[facility] LABCLIA [id number] [place] [id number] [place] Sodium [Moles/Vol] 141 mmol/L Normal 136-144 [facility] Comment on above: Order Comment: Speci men Type: BLOOD SPECIMENOrdering Facility: [facility] Address: [address] [place] [address] Performed By: #### 3 016-3, 14999-7, 79880-1, 52504-7 ####[facility] LABCLIA [id number] [place] [address] [place] Urea nitrogen [Mass/Vol] 18 mg/dL Normal 9-[address] [facility] Comment on above: Order Comment: Speci men Type: BLOOD SPECIMENOrdering Facility: [facility] Address: [address] [place] [address] Performed By: #### 3 016-3, 19757-4, 94080-2, 21300-0 ####[facility] LABCLIA [id number] [place] [address] [place] HCV Ab Ql (S)on 07-12-2024 Interpretation and review of laboratory results Normal [facility] HCV Ab Ser Qlon 07-12-2024 HCV Ab Ql (S) Negative Normal Negative [facility] Comment on above: Order Comment: Speci men Type: BLOOD SPECIMENOrdering Facility: [facility] Address: [address] [place] [address] Result Comment: The result suggests no evidence of active infection with Hepatitis C virus. Should recent infection be suspected, repeat testing may be considered 4-6 weeks after this draw. Performed By: #### 1 6128-1 ####[facility] LABCLIA [id number] [place] [address] [place] HEPATITIS C ANTIBODY IA WITH CONFIRMATIONon 07-12-2024 HCV Ab Ql (S) Negative Negative [facility] Comment on above: The result suggests no evidence of active infection with Hepatitis C virus. Should recent infection be suspected, repeat testing may be considered 4-6 weeks after this draw. HIV 1+2 Ab IA Qlon HIV 1 and 2 Ab IA.rapid Nom (S/P/Bld) [facility] Comment on above: Test not indicated. HIV 1+2 Ab+HIV1 p24 Ag IA Ql Non-Reactive Nonreactive [facility] HIV immunoassay testing algorithm interpretation (S/P/Bld) [Interp] [facility] Comment on above: No evidence of HIV-1 or HIV-2 infection. Should recent infection be suspected, repeat testing may be considered 2-3 weeks after this draw. [place] Rev. Code 3701.243(E): This information has been disclosed to you from confidential records protected from disclosure by state law. You shall make no further disclosure of this information without the specific, written, and informed release of the individual to whom it pertains or as otherwise permitted by state law. A general authorization for the release of medical or other information is not sufficient for the purpose of the release of HIV test results or diagnoses. [facility] HIV 1 and 2 Ab IA.rapid Nom (S/P/Bld) Normal [facility] Comment on above: Order Comment: Speci men Type: BLOOD SPECIMENOrdering Facility: [facility] Address: [address] [place] [address] Result Comment: Test not indicated. Performed By: #### 3 1201-7 ####[facility] LABCLIA [id number] [place] HIV 1+2 Ab+HIV1 p24 Ag IA Ql Non-Reactive Normal Nonreactive [facility] Comment on above: Order Comment: Speci men Type: BLOOD SPECIMENOrdering Facility: [facility] Address: [address] [place] [address] Performed By: #### 3 1201-7 ####[facility] LABCLIA [id number] [place] [address] [place] HIV immunoassay testing algorithm interpretation (S/P/Bld) [Interp] Normal [facility] Comment on above: Order Comment: Speci men Type: BLOOD SPECIMENOrdering Facility: [facility] Address: [address] [place] [address] Result Comment: No e vidence of HIV-1 or HIV-2 infection. Should recent infection be suspected, repeat testing may be considered 2-3 weeks after this draw. [place] Rev. Code 3701.243(E): This information has been disclosed to you from confidential records protected from disclosure by state law. ???You shall make no further disclosure of this information without the specific, written, and informed release of the individual to whom it pertains or as otherwise permitted by state law. A general authorization for the release of medical or other information is not sufficient for the purpose of the release of HIV test results or diagnoses. Performed By: #### 3 1201-7 ####[facility] LABCLIA [id number] [facility] [id number] [place] [address] [place] HbA1c (Bld)on 07-12-2024 Average glucose Estimated from glycated hemoglobin (Bld) [Mass/Vol] 131 mg/dL [facility] Comment on above: eAG: (Estimated aver age glucose) is a calculated value from HgbA1c and is leather goods sales representative of the average blood glucose level in the last 2-3 month period. HbA1c (Bld) [Mass fraction] 6.2 % High 4.3 - 5.6 % [facility] Comment on above: [place] Diabetes As sociation guidelines indicate that patients with HgbA1c in the range 5.7-6.4% are at increased risk for development of diabetes, and intervention by lifestyle modification may be beneficial. HgbA1c greater or equal to 6.5% is considered diagnostic of diabetes. Interpretation and review of laboratory results Abnormal [facility] Average glucose Estimated from glycated hemoglobin (Bld) [Mass/Vol] 131 mg/dL Normal [facility] Comment on above: Order Comment: Speci men Type: BLOOD SPECIMENOrdering Facility: [facility] Address: [address] [place] [address] Result Comment: eAG: (Estimated average glucose) is a calculated value from HgbA1c and is leather goods sales representative of the average blood glucose level in the last 2-3 month period. Performed By: #### 5 5454-3 ####[facility] LABCLIA [id number] [place] [address] [place] HbA1c (Bld) [Mass fraction] 6.2 % High 4.3-5.[address] [facility] Comment on above: Order Comment: Speci men Type: BLOOD SPECIMENOrdering Facility: [facility] Address: [address] [place] [address] Result Comment: [place] Diabetes Association guidelines indicate that patients with HgbA1c in the range 5.7-6.4% are at increased risk for development of diabetes, and intervention by lifestyle modification may be beneficial. HgbA1c greater or equal to 6.5% is considered diagnostic of diabetes. Performed By: #### 5 5454-3 ####[facility] LABCLIA [id number] [address] [place] Lipid 1996 panelon 4 Cholesterol [Mass/Vol] 364 mg/dL High NINF - 200 mg/dL [facility] Comment on above: <200 mg/dL, Desirabl e 200-239 mg/dL, Borderline high >239 mg/dL, High Cholesterol in HDL [Mass/Vol] 20 mg/dL Low 39 - PINF mg/dL [facility] Comment on above: 40-59 mg/dL, Accepta ble >59 mg/dL, High: Negative risk factor for coronary heart disease <40 mg/dL, Low: Positive risk factor for coronary heart disease Cholesterol in LDL [Mass/Vol] [facility] Comment on above: Unable to calculate due to increased Triglycerides. See LDL-Chol, Direct. Cholesterol in LDL/Cholesterol in HDL [Mass ratio] [facility] Comment on above: Unable to calculate due to elevated Triglycerides. Reference: 1. National Cholesterol Education Program ATP III Guideline At-A-Glance Quick Desk Reference: National Heart, Lung, and Blood [place]. National Institutes of Health. 2001: NIH Publication No. 01-3305. 2. An International Atherosclerosis Society position paper: global recommendations for the management of dyslipidemia: executive summary, Atherosclerosis. 2014: 232(2):410-413. Cholesterol in VLDL [Mass/Vol] [facility] Comment on above: Unable to calculate due to increased Triglycerides. See LDL-Chol, Direct. Cholesterol non HDL [Mass/Vol] 344 mg/dL High NINF - 130 mg/dL [facility] Comment on above: <130 mg/dL, Optimal 130-159 mg/dL, Near optimal/above optimal 160-189 mg/dL, Borderline high 190-219 mg/dL, High >219 mg/dL, Very high Secondary prevention optimal non HDL Cholesterol levels are recommended to be <100 mg/dL Cholesterol.total/Chol esterol in HDL [Mass ratio] 18.20 {ratio} High NINF - 5.10 [facility] Fasting Time 17 hrs [facility] Interpretation and review of laboratory results Abnormal [facility] Triglyceride [Mass/Vol] 976 mg/dL High NINF - 150 mg/dL [facility] Comment on above: <150 mg/dL, Normal 150-199 mg/dL, Borderline high 200-499 mg/dL, High >499 mg/dL, Very high [facility] Cholesterol [Mass/Vol] 364 mg/dL High <200 Cl [facility] Comment on above: Order Comment: Speci men Type: BLOOD SPECIMENOrdering Facility: [facility] Address: [address] [place] [address] Result Comment: <200 mg/dL, Desirable 200-239 mg/dL, Borderline high >239 mg/dL, High Performed By: #### 3 016-3, 81467-8, 37305-7, 13469-0 ####[facility] LABCLIA [id number] [place] [address] [place] Cholesterol in HDL [Mass/Vol] 20 mg/dL Low >[address] [facility] Comment on above: Order Comment: [facility] Type: BLOOD SPECIMENOrdering Facility: [facility] Address: [address] [place] [address] Result Comment: 40-5 9 mg/dL, Acceptable >59 mg/dL, High: Negative risk factor for coronary heart disease <40 mg/dL, Low: Positive risk factor for coronary heart disease Performed By: #### 3 016-3, 41719-4, 11686-4, 22934-9 ####[facility] LABCLIA [id number] [place] [address] [place] Cholesterol in LDL [Mass/Vol] Normal [facility] Comment on above: Order Comment: Speci men Type: BLOOD SPECIMENOrdering Facility: [facility] Address: [address] [place] [address] Result Comment: Unab le to calculate due to increased Triglycerides. See LDL-Chol, Direct. Performed By: #### 3 016-3, 44138-8, 68466-3, 41160-4 ####[facility] LABCLIA [id number] [place] [address] [place] Cholesterol in LDL/Cholesterol in HDL [Mass ratio] Normal [facility] Comment on above: Order Comment: Speci men Type: BLOOD SPECIMENOrdering Facility: [facility] Address: [address] [place] [address] Result Comment: Unab le to calculate due to elevated Triglycerides. Reference: 1. National Cholesterol Education Program ATP III Guideline At-A-Glance Quick Desk Reference: National Heart, Lung, and Blood [place]. National Institutes of Health. 2001: NIH Publication No. 01-3305. 2. An International Atherosclerosis Society position paper: global recommendations for the management of dyslipidemia: executive summary, Atherosclerosis. 2014: 232(2):410-413. Performed By: #### 3 016-3, 80817-8, 35874-7, 06657-2 ####[facility] LABIA [id number] [place] [address] [place] Cholesterol in VLDL [Mass/Vol] Normal [facility] Comment on above: Order Comment: Speci men Type: BLOOD SPECIMENOrdering Facility: [facility] Address: [address] [place] [address] Result Comment: Unab le to calculate due to increased Triglycerides. See LDL-Chol, Direct. Performed By: #### 3 016-3, 55413-1, 51170-2, 13316-3 ####[facility] LABCLIA [id number] [place] [id number] [place] Cholesterol non HDL [Mass/Vol] 344 mg/dL High <[address] [facility] Comment on above: Order Comment: Speci men Type: BLOOD SPECIMENOrdering Facility: [facility] Address: [address] [place] [address] Result Comment: <130 mg/dL, Optimal 130-159 mg/dL, Near optimal/above optimal 160-189 mg/dL, Borderline high 190-219 mg/dL, High >219 mg/dL, Very high Secondary prevention optimal non HDL Cholesterol levels are recommended to be <100 mg/dL Performed By: #### 3 016-3, 10036-9, 62508-0, 05882-2 ####[facility] LABCLIA [id number] [place] [address] [place] Cholesterol.total/Chol esterol in HDL [Mass ratio] 18.20 {ratio} High <5.[address] [facility] Comment on above: Order Comment: Speci men Type: BLOOD SPECIMENOrdering Facility: [facility] Address: [address] [place] [address] Performed By: #### 3 016-3, 47388-5, 01517-7, 45813-9 ####[facility] LABCLIA [id number] [place] [address] [place] FASTING TIME 17 hrs Normal [facility] Comment on above: Order Comment: Speci men Type: BLOOD SPECIMENOrdering Facility: [facility] Address: [address] [place] [address] Performed By: #### 3 016-3, 63802-7, 56472-0, 03701-0 ####[facility] LABCLIA [id number] [place] [address] [place] Triglyceride [Mass/Vol] 976 mg/dL High <[address] [facility] Comment on above: Order Comment: Speci men Type: BLOOD SPECIMENOrdering Facility: [facility] Address: [address] [place] [address] Result Comment: <150 mg/dL, Normal 150-199 mg/dL, Borderline high 200-499 mg/dL, High >499 mg/dL, Very high Performed By: #### 3 016-3, 28761-3, 98968-9, 92581-9 ####[facility] LABCLIA [id number] OF [facility] THYROID STIMULATING HORMONEo n 07-12-2024 TSH Qn 2.150 m[IU]/L [facility] TSH Qnon 07-12-2024 Interpretation and review of laboratory results Normal [facility] TSH SerPl-aCncon 07-12-2024 TSH Qn 2.150 m[IU]/L Normal 0.270-4.[address] [facility] Comment on above: Order Comment: Speci men Type: BLOOD SPECIMENOrdering Facility: [facility] Address: [address] [place] [address] Performed By: #### 3 016-3, 47338-8, 20732-5, 44906-8 ####[facility] LABCLIA [id number] [place] CNOVon 05-23-2024 CNOV Office Visit (UCTR ) CLIFF SOLORZANO ([id number]) 1980 M Date Time Provider Department 05/23/24 10:30 AM MARIAN FLORES [facility] During your visit today, we recorded the following information about you: Temperature Pulse Respiration Blood pressure 97.6 degrees 90/minute 16/minute 136/84 Weight 116.1 kg Marian Flores APRN.BUNDLE WRAPPER 05/23/2024 10:49 AM Signed This note was created using [employer]. Subjective Cliff Solorzano is a 43 year old male. Patient presents with rash all over body for 1 week Patient was pulling weeds in flower beds and there was poison karla Tried OTC allergic medications without relief Review of Systems Constitutional: Negative for chills and fever. Objective BP 136/84 Pulse 90 Temp 36.4 ?C (97.6 ?F) (Tympanic) Resp 16 Wt 116.1 kg (255 lb 15.3 oz) SpO2 99% Physical Exam Constitutional: General: He is not in acute distress. Appearance: Normal appearance. He is not toxic-appearing. Skin: Findings: Rash present. Neurological: Mental Status: He is alert. Assessment and Plan ASSESSMENT/PLAN: 1. Poison karla dermatitis - ICD9: 692.6, ICD10: L23.7 - Oral Steriod tx -Medrol dose pack - discussed skin care of rash - follow up if symptoms persist or worsen. - METHYLPREDNISOLONE 4 MG TABLETS IN A DOSE PACK GENOVEVA Ohara Leanne, APRN.CNP 05/23/2024 10:44 AM Signed [facility] PATIENT INFO CONTACT DERMATITIS OVERVIEW Dermatitis is defined as an inflammation of the skin. Contact dermatitis refers to dermatitis that is caused by contact between the skin and a substance. The substance can be an allergen (a substance that provokes an allergic reaction) or an irritant (a substance that damages the skin). Irritants are responsible for about 80 percent of cases of contact dermatitis. In most cases, self-care measures and drug therapy can control the symptoms and prevent complications of contact dermatitis. IRRITANT CONTACT DERMATITIS Irritant contact dermatitis occurs when the skin comes in direct contact with a substance that physically, mechanically, or chemically irritates the skin, causing the normal skin barrier to be disrupted. Cause -- The most common causes of irritant dermatitis are products used on a daily basis, including soap, cleansers, and rubbing alcohol. People with other skin conditions, dry skin, and light-colored or fair skin are at greatest risk, although anyone can develop irritant dermatitis. Symptoms -- Mild irritants cause redness, dryness, fissures (small cracks), and itching. Strong irritants may cause swelling, oozing, tenderness, or blisters. The hands are commonly affected, often between the fingers. Irritant dermatitis can also affect the face, especially the thin skin of the eyelids. Diagnosis -- The diagnosis of irritant contact dermatitis is usually based upon a person's history and physical examination. In some cases, a patch test (applying a small amount of a substance to the skin) may be recommended to determine if the dermatitis is allergic or irritant-type. Patch testing should be done by a machine cloth examiner or machine printer hose who is trained in this procedure. Treatment -- The goal of treatment of irritant contact dermatitis is to restore the normal skin barrier and protect the skin from future injury. Reducing exposure to known irritants is essential. In some cases, simply reducing the use of soap and using an emollient cream or ointment completely alleviates symptoms. Wearing gloves when working with irritants may help as well. In more severe cases, topical corticosteroids (steroids) may be recommended. Steroid creams and ointments are available in a variety of strengths (potencies); the least potent are available in the [place] without a prescription (eg, hydrocortisone 1 percent cream). More potent formulations require a prescription. Steroid treatments for contact dermatitis are most effective when applied and covered with a barrier, such as plastic wrap, a dressing (eg, Telfa), cotton gloves, or petroleum jelly. Oral steroids (eg, prednisone) may be used briefly to treat severe dermatitis, but are not recommended for long-term treatment of irritant contact dermatitis. ALLERGIC CONTACT DERMATITIS Allergic contact dermatitis occurs when the skin comes in direct contact with an allergen. This activates the body's immune system, which triggers inflammation. Allergic contact dermatitis can occur after being exposed to a new product or after using a product for months or years. Common allergens -- Poison karla, poison oak, and poison sumac contain an oil called urushiol, which is the most common cause of allergic contact dermatitis. Ginkgo fruit and the skin of mangos also contain urushiol and can cause allergic contact dermatitis. Other common allergens include nickel in jewelry, perfumes and cosmeti (more content not included)... Normal [facility] CNOVon 05-09-2024 CNOV Office Visit (UCWSTR ) CLIFF SOLORZANO ([id number]) 1980 M Date Time Provider Department 05/09/24 7:30 AM RYLEE KIMBROUGH [facility] During your visit today, we recorded the following information about you: Temperature Pulse Respiration Blood pressure 98 degrees 89/minute 16/minute 110/82 Weight 114.9 kg Rylee Kimbrough PA 05/09/2024 7:45 AM Signed This note was created using [employer]. Subjective Cliff Solorzano is a 43 year old male. HPI 43-year-old male presents for sore throat, cough, congestion x 1 day. Patient states yesterday he started getting sore throat. He has had mild cough, congestion, headache, chills and bodyaches. He denies any fevers, but has felt feverish. No chest pain or shortness of breath. He has had COVID in the past and states this feels similar. He states several people at his work have tested positive for COVID. No sick contacts at home. Patient has taken Motrin with improvement in his headache. History reviewed. No pertinent past medical history. No past surgical history on file. ALLERGIES Patient has no known allergies. MEDICATIONS sertraline (ZOLOFT) 100 mg tablet Take 1 tablet by mouth once daily. omeprazole (PRILOSEC) 20 mg capsule Take 1 capsule by mouth once daily. pitavastatin (LIVALO) 4 mg tablet Take 1 tablet by mouth once daily. No family history on file. Social History Tobacco Use Smoking status: Never Smokeless tobacco: Current Review of Systems Constitutional: Positive for chills and fever. HENT: Positive for congestion and sore throat. Respiratory: Positive for cough. Negative for shortness of breath. Gastrointestinal: Negative for diarrhea and vomiting. Neurological: Positive for headaches. Objective BP 110/82 Pulse 89 Temp 36.7 ?C (98 ?F) (Tympanic) Resp 16 Wt 114.9 kg (253 lb 4.9 oz) SpO2 97% Physical Exam Vitals and nursing note reviewed. Constitutional: General: He is not in acute distress. Appearance: Normal appearance. He is not toxic-appearing. HENT: Right Ear: Tympanic membrane and ear canal normal. Left Ear: Tympanic membrane and ear canal normal. Nose: Nose normal. Mouth/Throat: Mouth: Mucous membranes are moist. Pharynx: Oropharynx is clear. Uvula midline. Posterior oropharyngeal erythema present. Tonsils: No tonsillar exudate or tonsillar abscesses. Eyes: Conjunctiva/sclera: Conjunctivae normal. Cardiovascular: Rate and Rhythm: Normal rate and regular rhythm. Pulmonary: Effort: Pulmonary effort is normal. Breath sounds: Normal breath sounds. No wheezing, rhonchi or rales. Skin: General: Skin is warm and dry. Neurological: Mental Status: He is alert. Assessment and Plan ASSESSMENT/PLAN: 1. URI, acute - ICD9: 465.9, ICD10: J06.9 (primary diagnosis) - Discussed viral etiology and rationale for treatment. - Symptomatic treatment with prn analgesia - Supportive care with fluids and rest - The patient may also use warm salt water gargles, throat lozenges and/or OTC throat spray as needed. - COVID AND INFLUENZA A/B AND RSV NAAT, ROUTINE -Declines antiviral. 2. Sore throat - ICD9: 462, ICD10: J02.9 - suspect viral - Group A strep molecular testing negative - Discussed supportive care treatment with fluids, rest and analgesia. - STREP A MOLECULAR (POC) Diagnosis and treatment plan were discussed and questions were answered to the patient's satisfaction. Pt acknowledged understanding of concepts and follow up plan. Specific signs and symptoms that would indicate the need for higher level of care were discussed in detail warranting prompt ER evaluation. JOYCE Luo Krislyn P, PA 05/09/2024 7:41 AM Signed Rest, increase water intake Motrin or Tylenol as needed for fever or pain. Salt water gargles, chloraseptic spray or lozenges as needed for sore throat. Warm beverages, honey. Nasal saline spray as needed Cool mist humidifier at night A cold normally lasts 7-10 days. If your symptoms are lasting longer, develop fever, or worsening by that time instead of improving then return to clinic or follow up with PCP for re-evaluation. Tylenol (generic acetaminophen) 500 mg-2 tabs every 8 hrs. as needed for fever and aches Ibuprofen 600 mg (3-200mg tablets) every 6 hours -Mucinex (generic is fine) Guaifenesin 1200 mg twice daily to help with cough and to thin out mucus Allergies As of Date: 05/09/2024 (No Known Allergies) Date Reviewed: 05/09/2024 Reviewed by: Simran Lugo LPN - Fully Assessed Reason for Visit: Cough [28] Cmt: Cough, fever, ST , NERI, bodyaches and chills x 1 day Primary Visit Diagnosis:URI, acute [J06.9] Other Visit Diagnosis:Sore throat [J02.9] Order(s):STREP A MOLECULAR (POC) [3352326] Order #: [id number] #:[id number] COVID AND INFLUENZA A/B AND RSV NAAT, ROUTINE [SQCVFLRS] Order #: [id number] (more content not included)... Normal [facility] SOLOR[facility]AN[facility] ([id number]) 1980 M Date Time Provider Department 05/09/24 RYLEE KIMBROUGH [facility] During your visit today, we recorded the following information about you: Rylee Kimbrough PA 05/09/2024 6:39 PM Signed Please let patient know he is negative for COVID flu and RSV Simran Lugo LPN 05/09/2024 6:43 PM Signed Left message for patient with negative results.Simran Lugo LPN Allergies As of Date: 05/09/2024 (No Known Allergies) Date Reviewed: 05/09/2024 Reviewed by: Simran Lugo LPN - Fully Assessed Reason for Visit: Results [95] Prescriptions as of 05/09/2024 - sertraline (ZOLOFT) 100 mg tablet Take 1 tablet by mouth once daily. - omeprazole (PRILOSEC) 20 mg capsule Take 1 capsule by mouth once daily. - pitavastatin (LIVALO) 4 mg tablet Take 1 tablet by mouth once daily. Problem List As Of Date: 05/09/2024 (None) Encounter Status:Closed by SIMRAN LUGO on 05/09/[address] [facility] COVID AND INFLUENZA A/B AND RSV NAAT, ROUTINEon 05-09-2024 SARS-CoV-2 (COVID-19) RNA ODETTE+probe Ql (Unsp spec) COVID 19 RESULT: Not detected The method used is RT-PCR or an equivalent NAAT method. Reference Range (the expected result in uninfected individuals): Not detected INFLUENZA A PCR: Not detected INFLUENZA B PCR: Not detected RSV PCR: Not detected Normal [facility] Comment on above: Performed By: #### C VFLRS ####[facility] LABCLIA [id number] [address] [place] STREP A MOLECULAR (POC)on Procedural Control Valid [facility] Strep A (POCT) Negative Negative [facility] ANTINUCLEAR ANTIBODIES DIREC Ton 12-14-2023 MARIA T,DIRECT Negative Normal Negative [facility] Comment on above: Result Comment: Perf ormed at: - [facility] [id number] Global Cmo: Lu Lopez MD, Phone: [phone] Performed at: [facility] [id number] Global Cmo: Torin Mondragon PhD, Phone: [phone] Performed By: #### L 100.0100, L575.7610, L3462.6495, L3790.0858 #### [facility] [address] [place] [address], [address] Anti-Histone Abson 4 ANTI-HISTONE AB 0.7 Units Normal 0.0-0.9 [facility] Comment on above: Result Comment: Nega tive <1.0 Weak Positive 1.0 - 1.5 Moderate Positive 1.6 - 2.5 Strong Positive >2.5 Performed By: #### L 100.0100, L505.7010, L3100.5475, L3410.0800 #### [facility] [address] [place], [address] Absolute lymphocyte countOrd ered By: Lien Cabrera on 12-10-2023 Lymphocytes Auto (Unsp spec) [#/Vol] 1.77 10*3/uL 0.83-4.51 [facility] Automated lymphocyte count a s percentage of total leukocytesOrdered By: Lien Cabrera on 12-10-2023 Lymphocytes/100 WBC Auto (Unsp spec) 37.7 % 19-41 [facility] Basophil percentageOrdered B y: Lien Cabrera on 12-10-2023 Basophil percentage 11.0 IU/mL <15 [facility] Basophils/100 WBC (Bld) 0.4 % 0-1 [facility] Eosinophils/100 WBC (Bld) 0.9 % 0-5 [facility] Hemoglobin (Bld) [Mass/Vol] 14.1 g/dL 13.0-16.5 [facility] Monocytes/100 WBC (Bld) 6.0 % 0-10 [facility] Neutrophils (Bld) [#/Vol] 2.6 10*3/uL 2.0-7.7 [facility] Neutrophils/100 WBC (Bld) 54.6 % 47-70 [facility] WBC (Bld) [#/Vol] 4.7 10*3/uL 4.4-11.0 [facility] CBC W/Diff, Automatedon 11-19 Absolute Lymph 1.77 X10 3/uL Normal 0.83-4.51 [facility] Comment on above: Performed By: #### L 100.0100, L505.7010, L3100.5475, L3410.0800 #### [facility] [address] [place], [address] (063) Absolute Neut 2.6 X10 3/uL Normal 2.0-7.7 [facility] Comment on above: Performed By: #### L 100.0100, L505.7010, L3100.5475, L3410.0800 #### [facility] [address] [place], [address] Basophils/100 WBC (Bld) 0.4 % Normal 0-1 [facility] Comment on above: Performed By: #### L 100.0100, L505.7010, L3100.5475, L3410.0800 #### [facility] [address] [place], [address] Eosinophils/100 WBC (Bld) 0.9 % Normal 0-5 [facility] Comment on above: Performed By: #### L 100.0100, L505.7010, L3100.5475, L3410.0800 #### [facility] [address] [place], [address] Erythrocyte distribution width (RBC) [Ratio] 14.3 % Normal 11.6-14.6 [facility] Comment on above: Performed By: #### L 100.0100, L505.7010, L3100.5475, L3410.0800 #### [facility] [address] [place], [address] Hematocrit (Bld) [Volume fraction] 42.9 % Normal 40-54 [facility] Comment on above: Performed By: #### L 100.0100, L505.7010, L3100.5475, L3410.0800 #### [facility] [address] [place], [address] Hemoglobin (Bld) [Mass/Vol] 14.1 g/dL Normal 13.0-16.5 [facility] Comment on above: Performed By: #### L 100.0100, L505.7010, L3100.5475, L3410.0800 #### [facility] [address] [place], [address] IG% 0.400 Normal 0.0-0.9 [facility] Comment on above: Result Comment: IG% - Immature Granulocytes (promyelocytes, myelocytes and metamyelocytes) > 1% indicates that a LEFT SHIFT is Present. Performed By: #### L 100.0100, L505.7010, L3100.5475, L3410.0800 #### [facility] [address] [place], [address] Lymphocytes/100 WBC (Bld) 37.7 % Normal 19-41 [facility] Comment on above: Performed By: #### L 100.0100, L505.7010, L3100.5475, L3410.0800 #### [facility] [address] [place], [address] MCH (RBC) [Entitic mass] 28.0 pg Normal 27.0-32.0 [facility] Comment on above: Performed By: #### L 100.0100, L505.7010, L3100.5475, L3410.0800 #### [facility] [address] [place], [address] MCHC (RBC) [Mass/Vol] 32.9 g/dL Normal 32-36 [facility] Comment on above: Performed By: #### L 100.0100, L505.7010, L3100.5475, L3410.0800 #### [facility] [address] [place], [address] MCV (RBC) [Entitic vol] 85.1 fL Normal 80-94 [facility] Comment on above: Performed By: #### L 100.0100, L505.7010, L3100.5475, L3410.0800 #### [facility] [address] [place], [address] Monocytes/100 WBC (Bld) 6.0 % Normal 0-10 [facility] Comment on above: Performed By: #### L 100.0100, L505.7010, L3100.5475, L3410.0800 #### [facility] [address] [place], [address] Neutrophils/100 WBC (Bld) 54.6 % Normal 47-70 [facility] Comment on above: Performed By: #### L 100.0100, L505.7010, L3100.5475, L3410.0800 #### [facility] [address] [place], [address] Nucleated RBC (Bld) [#/Vol] 0 10*3/uL Normal 0-5 [facility] Comment on above: Performed By: #### L 100.0100, L505.7010, L3100.5475, L3410.0800 #### [facility] [address] [place], [address] Platelet mean volume (Bld) [Entitic vol] 9.2 fL Normal 6.2-12.0 [facility] Comment on above: Performed By: #### L 100.0100, L505.7010, L3100.5475, L3410.0800 #### [facility] [address] [place], [address] Platelets (Bld) [#/Vol] 156 10*3/uL Normal 150-450 [facility] Comment on above: Performed By: #### L 100.0100, L505.7010, L3100.5475, L3410.0800 #### [facility] [address] [place], [address] RBC (Bld) [#/Vol] 5.04 10*6/uL Normal 4.6-6.2 [facility] Comment on above: Performed By: #### L 100.0100, L505.7010, L3100.5475, L3410.0800 #### [facility] [address] [place], [address] RDW SD 44.2 fl High 35.1-43.9 [facility] Comment on above: Performed By: #### L 100.0100, L505.7010, L3100.5475, L3410.0800 #### [facility] [address] [place], [place], [address] WBC (Bld) [#/Vol] 4.7 10*3/uL Normal 4.4-11.0 [facility] Comment on above: Performed By: #### L 100.0100, L505.7010, L3100.5475, L3410.0800 #### [facility] [address] [place], [place], [address] Determination of erythrocyte mean corpuscular volume (MCV)Ordered By: Lien Cabrera on 12-10-2023 MCV (RBC) [Entitic vol] 85.1 fL 80-94 [facility] Erythrocyte distribution wid th ratioOrdered By: [facility] on 12-10-2023 Erythrocyte distribution width (RBC) [Ratio] 14.3 % 11.6-14.6 [facility] Erythrocyte distribution wid th standard deviationOrdered By: [facility] on 12-10-2023 Erythrocyte distribution width (RBC) [Entitic vol] 44.2 fL 35.1-43.9 [facility] Hematocrit Auto (Bld) [Volum e fraction]Ordered By: [facility] on 12-10-2023 Hematocrit (Bld) [Volume fraction] 42.9 % 40-54 [facility] Immature granulocytes/100 WB C Auto (Bld)Ordered By: [facility] 12-10-2023 Immature granulocytes/100 WBC (Bld) 0.400 % 0.0-0.9 [facility] Comment on above: IG% - Immature Granu locytes (promyelocytes, myelocytes and metamyelocytes) > 1% indicates that a LEFT SHIFT is Present. Laboratory - Hematology and Cell countsOrdered By: [facility] on 12-10-2023 MCH (RBC) [Entitic mass] 28.0 pg 27.0-32.0 [facility] MCHC (RBC) [Mass/Vol] 32.9 g/dL 32-36 [facility] Nucleated RBC/100 WBC (Bld) [Ratio] 0 % 0-5 [facility] Platelet mean volume (Bld) [Entitic vol] 9.2 fL 6.2-12.0 [facility] Hospital Platelets (Bld) [#/Vol] 156 10*3/uL 150-450 [facility] No Panel InformationOrdered By: Lien Cabrera on 12-10-2023 Anti-Nuclear Antibody Screen Negative Negative [facility] Comment on above: Performed at: - [address] [id number] Director: Lu Lopez MD, Phone: [phone] at: - [facility] [id number] Director: Torin Mondragon PhD, Phone: [phone] RBC Auto (Bld) [#/Vol]Ordere d By: Lien Cabrera on 12-10-2023 RBC (Bld) [#/Vol] 5.04 10*6/uL 4.6-6.2 [facility] Rheumatoid Factoron 12-10-19 24 RHEUMATOID FAC 11.0 IU/mL Normal <15 [facility] Comment on above: Performed By: #### L 100.0100, L505.7010, L3100.5475, L3410.0800 #### [facility] [address] [place], [place], [id number] Serum histone antibody assay (units/volume)Ordered By: Lien Cabrera on 12-10-2023 Histone Ab Qn (S) 0.7 Units 0.0-0.9 [facility] Comment on above: Negative <1.0 Weak P ositive 1.0 - 1.5 Moderate Positive 1.6 - 2.5 Strong Positive >2.5 Urgent Care Visit Reporton 0 10-15-2023 Urgent Care Visit Report [facility] [address], [address] [place], [place] [address] OFFICE VISIT Date of Service: 10/15/23 MR#: [id number] Acct: [id number] Name: CLIFF SOLORZANO Rep #: [id number] : 1980 Provider: JOYCE Duarte Age/Sex: 43/M Location: [facility] Status: Signed Intake Vital Signs 06/15/21 09:19 10/15/23 10:06 Height 6 ft BP 122/82 H Blood Pressure Location Lt brachial Position Sitting Respiration 16 Pulse 98 Pulse Source Palpation Temp 98.2 F Temp Source Temporal Pulse Oximetry (%) 97 Oxygen Delivery Method room air Intake Visit Reasons: EAR PAIN, CONGESTION Chief Complaint: 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 Is patient in pain?: Yes Allergies No Known Allergies Allergy (Verified 10/15/23 10:06) Medications meloxicam 15 mg tablet 15 mg PO DAILY 08/29/20 [History Confirmed 10/15/23] rosuvastatin 40 mg tablet 40 mg PO QHS 08/29/20 [History Confirmed 10/15/23] sertraline 50 mg tablet 75 mg PO DAILY 08/29/20 [History Confirmed 10/15/23] benzonatate 200 mg capsule 200 mg PO TID PRN cough #20 caps 10/15/23 [Rx Confirmed 10/15/23] methylprednisolone 4 mg tablets in a dose pack (Medrol (Eladio)) See Rx Instructions PO PER PKG DIR #21 tabs 10/15/23 [Rx Confirmed 10/15/23] PFSH Social History (Updated 06/15/21 @ 09:21 by Eri Webb) Smoking Status: Current every day smoker HPI HPI Chief Complaint: left ear pain Details: CLIFF SOLORZANO, is a 43 M who presents to the office today for initial evaluation in the [facility] for approximately 4-5 day history of persistent chills, cough, NERI, fatigue, congestion/ runny nose. Patient notes no complaints of chest pain or shortness of breath or dyspnea on exertion, though concerned due to h/o pneumonia in past. Several close contacts recently dx???d w/ similar URI complaints - including daughter recently dx'd w/ influenza B. No [id number] taken to assist. Nonsmoker. Declining all POC screening - stating he only want to ensure no AOM. No other associated symptoms and no other alleviating/aggravatin g factors. ROS Const Constitutional: No other (As above) Exam Const General: cooperative, healthy appearing and no acute distress Orientation: alert, awake and oriented x3 [facility] Head: normal to inspection Ears: hearing grossly normal bilaterally, external ears normal, TM's normal bilaterally and EAC's normal Nose: external nose normal, nares normal, septum normal and clear nasal discharge Face and sinus: normal facial exam, sinuses nontender and face symmetric Mouth: oral mucosae normal, lip normal, tongue normal and oropharynx normal Throat: posterior oropharynx normal, tonsils normal, uvula midline and no postnasal drainage Eyes General: appearance normal, both eyes and all related structures Neck Neck: normal visual inspection, full ROM, no lymphadenopathy, no meningeal signs and supple Neck mass: No Thyroid: thyroid normal Lymphatic: no lymphadenopathy noted Chest Chest palpation inspection: normal inspection of the chest Resp Effort Inspection: normal respiratory effort, able to speak in complete sentences and cough Quality of cough: wet (nonproductive in office today) Auscultation: Bilateral: Clear to Auscultation Cardio Palpation: normal PMI Rate: tachycardic Rhythm: regular rhythm Heart Sounds: S1 normal, S2 normal, no gallops, no murmurs and no rubs Pulses: radial pulses present Skin General: no rashes or lesions noted Neuro General: patient alert, patient awake and patient oriented x3 Cognition: normal cognition Speech: speech normal Psych Appearance: grossly normal Mental Status: mental status grossly normal Mood: congruent mood Affect: normal affect Speech and Movement: speech and movement normal Attitude: cooperative Diagnoses URI (upper respiratory infection) J06.9 Assessment and Plan Assessment and Plan (1) URI (upper respiratory infection): Status: Acute Plan: Declining CXR upon offering (due to h/o pneumonia). Medrol and Benzonatate as prescribed today. Declined work excuse upon offering (works from home). Supportive measures as instructed today. Follow-up with PCP in 5 to 7 days should symptoms not improve, ED sooner should symptoms worsen or any other concerns develop. Pt states acknowledging understanding all the above. Coding Level of Care Code Off vis,est,level 3 Assessment and Plan Assessment and Plan Medications: New methylprednisolone (Medrol (Eladio)) PO PER PKG DIR 21 tabs 0RF benzonatate 200 mg PO TID PRN 20 caps 0RF cough 10/15/23 1012 Date Jeff Huynh Signature: Date (if applicable) CC: Normal [facility] Basophil percentageOrdered B y: Lien Cabrera on 06-04-2023 Cholesterol [Mass/Vol] 194 mg/dL <[address] [facility] Comment on above: <200 mg/dL Desirable 200-240 mg/dL Borderline >240 mg/dL High Risk Triglyceride [Mass/Vol] 469 mg/dL <199 [facility] Comment on above: The drugs N-Acetylcy steine and Metamizole may falsely depress this assay. TRIGLYCERIDE IS GREATER THAN 400 mg/dL. LDL RESULT IS INVALID AND WILL NOT BE REPORTED.Serum Triglycerides Reference Interval Normal <150 mg/dL Borderline high 150 - 199 mg/dL High 200 - 499 mg/dL Very High > or = 500 mg/dL Lipid Profileon 06-04-2023 Cholesterol [Mass/Vol] 194 mg/dL Normal [address] [facility] [address] [facility] Comment on above: Result Comment: <200 mg/dL Desirable 200-240 mg/dL Borderline >240 mg/dL High Risk Performed By: #### L 500.4100 #### [facility] [address] [place], [address] Cholesterol in HDL [Mass/Vol] 31 mg/dL Low [facility] Comment on above: Result Comment: The drugs N-Acetylcysteine and Metamizole may falsely depress this assay. Reference Range HDL <40 mg/dL Low HDL Cholesterol HDL >or= 60 mg/dL High HDL Cholesterol Performed By: #### L 500.4100 #### [facility] [address] [place], [address] LDL TNP Normal 0-130 [facility] Comment on above: Performed By: #### L 500.4100 #### [facility] [address] [place], [address] Triglyceride [Mass/Vol] 469 mg/dL High [facility] Comment on above: Result Comment: The drugs N-Acetylcysteine and Metamizole may falsely depress this assay. TRIGLYCERIDE IS GREATER THAN 400 mg/dL. LDL RESULT IS INVALID AND WILL NOT BE REPORTED. Serum Triglycerides Reference Interval Normal <150 mg/dL Borderline high 150 - 199 mg/dL High 200 - 499 mg/dL Very High > or = 500 mg/dL Performed By: #### L 500.4100 #### [facility] [address] [place], [place], [id number] VLDL TNP Normal 5-40 [facility] Comment on above: Performed By: #### L 500.4100 #### [facility] [address] [place], [place], [id number] Serum or plasma cholesterol in HDL measurement (mass/volume)Ordered By: Lien Cabrera on 06-04-2023 Cholesterol in HDL [Mass/Vol] 31 mg/dL >40 [facility] Comment on above: The drugs N-Acetylcy steine and Metamizole may falsely depress this assay. Reference Range HDL <40 mg/dL Low HDL Cholesterol HDL >or= 60 mg/dL High HDL Cholesterol Serum or plasma cholesterol in VLDL measurement (mass/volume)Ordered By: Lien Cabrera on 06-04-2023 Cholesterol in VLDL [Mass/Vol] DCP [facility] Comment on above: Test not performed Serum or plasma low density lipoprotein (LDL) cholesterol measurement (mass/volume)Ordered By: Lien Cabrera on 06-04-2023 Cholesterol in LDL [Mass/Vol] DCP [facility] Comment on above: Test not performed Absolute lymphocyte counton 03-06-2022 Lymphocytes Auto (Unsp spec) [#/Vol] 2.36 10*3/uL 0.83-4.51 [facility] Work Phone: Basophil percentageon 2021 Basophils/100 WBC (Bld) 0.5 % 0-1 [facility] Work Phone: Eosinophils/100 WBC (Bld) 1.0 % 0-5 [facility] Work Phone: Neutrophils (Bld) [#/Vol] 3.0 10*3/uL 2.0-7.7 [facility] Work Phone: Neutrophils/100 WBC (Bld) 52.3 % 47-70 [facility] Work Phone: WBC (Bld) [#/Vol] 5.8 10*3/uL 4.4-11.0 [facility] Work Phone: Blood erythrocytes count (nu mber/volume)on 03-06-2022 RBC (Bld) [#/Vol] 4.96 10*6/uL 4.6-6.2 [facility] Work Phone: Blood hemoglobin measurement (mass/volume)on 03-06-2022 Hemoglobin (Bld) [Mass/Vol] 14.4 g/dL 13.0-16.5 [facility] Work Phone: Blood lymphocytes/100 leukoc yteson 03-06-2022 Lymphocytes/100 WBC (Bld) 40.7 % 19-41 [facility] Work Phone: Blood monocytes/100 leukocyt eson 03-06-2022 Monocytes/100 WBC (Bld) 5.3 % 0-10 [facility] Work Phone: Blood platelet mean volumeon 03-06-2022 Platelet mean volume (Bld) [Entitic vol] 9.4 fL 6.2-12.0 [facility] Work Phone: Determination of erythrocyte mean corpuscular volume (MCV)on 03-06-2022 MCV (RBC) [Entitic vol] 85.5 fL 80-94 [facility] Work Phone: Hematocrit Auto (Bld) [Volum e fraction]on 03-06-2022 Hematocrit (Bld) [Volume fraction] 42.4 % 40-54 [facility] Work Phone: Laboratory - Hematology and Cell countson 03-06-2022 Erythrocyte distribution width (RBC) [Entitic vol] 42.5 fL 35.1-43.9 [facility] Work Phone: Erythrocyte distribution width (RBC) [Ratio] 13.7 % 11.6-14.6 [facility] Work Phone: Immature granulocytes/100 WBC (Bld) 0.200 % 0.0-0.9 [facility] Work Phone: Comment on above: IG% - Immature Granu locytes (promyelocytes, myelocytes and metamyelocytes) > 1% indicates that a LEFT SHIFT is Present. MCH (RBC) [Entitic mass] 29.0 pg 27.0-32.0 [facility] Work Phone: Nucleated RBC/100 WBC (Bld) [Ratio] 0 % 0-5 [facility] Work Phone: MCHC Auto (RBC) [Mass/Vol]on 03-06-2022 MCHC (RBC) [Mass/Vol] 34.0 g/dL 32-36 [facility] Work Phone: Platelets bldon 03-06-2022 Platelets (Bld) [#/Vol] 168 10*3/uL 150-450 [facility] Work Phone: Absolute lymphocyte counton 03-02-2022 Lymphocytes Auto (Unsp spec) [#/Vol] 2.35 10*3/uL 0.83-4.51 [facility] Work Phone: Basophil percentageon 2021 Basophils/100 WBC (Bld) 0.7 % 0-1 [facility] Work Phone: Bilirubin [Mass/Vol] 0.60 mg/dL 0.20-1.00 [facility] Work Phone: Comment on above: Slight Lipemia, Resu lt may be falsely increased. For patients on eltrombopag therapy, use of Dimension [place] TBIL is not recommended. Chloride [Moles/Vol] 103 mmol/L 98-107 [facility] Work Phone: Cholesterol [Mass/Vol] 311 mg/dL <200 [facility] Work Phone: Comment on above: Slight Lipemia, Resu lt may be falsely increased. <200 mg/dL Desirable 200-240 mg/dL Borderline >240 mg/dL High Risk Eosinophils/100 WBC (Bld) 1.3 % 0-5 [facility] Work Phone: Glucose [Mass/Vol] 115 mg/dL 74-106 [facility] Work Phone: Comment on above: Slight Lipemia, Resu lt may be falsely increased.Fasting Glucose result from 100 to 125 mg/dL suggests IMPAIRED HOMEOSTASIS per A.D.A. criteria. Neutrophils (Bld) [#/Vol] 2.9 10*3/uL 2.0-7.7 [facility] Work Phone: Neutrophils/100 WBC (Bld) 51.5 % 47-70 [facility] Work Phone: Potassium [Moles/Vol] 4.0 mmol/L 3.5-5.1 [facility] Work Phone: [phone] Comment on above: Slight Lipemia, Resu lt may be falsely increased. Protein [Mass/Vol] 7.3 g/dL 6.4-8.2 [facility] Work Phone: Comment on above: Slight Lipemia, Resu lt may be falsely increased. Sodium [Moles/Vol] 137 mmol/L 136-145 [facility] Work Phone: [phone] Triglyceride [Mass/Vol] 927 mg/dL <199 [facility] Work Phone: [phone] Comment on above: The drugs N-Acetylcy steine and Metamizole may falsely depress this assay. Slight Lipemia, Result may be falsely increased. TRIGLYCERIDE IS GREATER THAN 400 mg/dL. LDL RESULT IS INVALID AND WILL NOT BE REPORTED.Serum Triglycerides Reference Interval Normal <150 mg/dL Borderline high 150 - 199 mg/dL High 200 - 499 mg/dL Very High > or = 500 mg/dL WBC (Bld) [#/Vol] 5.6 10*3/uL 4.4-11.0 [facility] Work Phone: Blood erythrocytes count (nu mber/volume)on 03-02-2022 RBC (Bld) [#/Vol] 4.75 10*6/uL 4.6-6.2 [facility] Work Phone: [phone] Blood hemoglobin measurement (mass/volume)on 03-02-2022 Hemoglobin (Bld) [Mass/Vol] 13.7 g/dL 13.0-16.5 [facility] Work Phone: [phone] Blood lymphocytes/100 leukoc yteson 03-02-2022 Lymphocytes/100 WBC (Bld) 42.0 % 19-41 [facility] Work Phone: [phone] Blood monocytes/100 leukocyt eson 03-02-2022 Monocytes/100 WBC (Bld) 4.1 % 0-10 [facility] Work Phone: [phone] Blood platelet mean volumeon 03-02-2022 Platelet mean volume (Bld) [Entitic vol] 9.4 fL 6.2-12.0 [facility] Work Phone: [phone] Determination of erythrocyte mean corpuscular volume (MCV)on 03-02-2022 MCV (RBC) [Entitic vol] 86.7 fL 80-94 [facility] Work Phone: [phone] Hematocrit Auto (Bld) [Volum e fraction]on 03-02-2022 Hematocrit (Bld) [Volume fraction] 41.2 % 40-54 [facility] Work Phone: [phone] Laboratory - Chemistry and C hemistry - challengeon 03-02-2022 ALP [Catalytic activity/Vol] 80 U/L 45-117 [facility] Work Phone: [phone] ALT [Catalytic activity/Vol] 50 U/L 16-61 [facility] Work Phone: [phone] Comment on above: Slight Lipemia, Resu lt may be falsely increased. CO2 [Moles/Vol] 26.0 mmol/L 21.0-32.0 [facility] Work Phone: Comment on above: Slight Lipemia, Resu lt may be falsely increased. Globulin (S) [Mass/Vol] 2.8 g/dL 2.2-4.2 [facility] Work Phone: [phone] Lipase [Catalytic activity/Vol] 126 U/L 73-393 [facility] Work Phone: [phone] Urea nitrogen/Creatinine [Mass ratio] 16.7 mg/mg 10-20 [facility] Work Phone: [phone] Laboratory - Hematology and Cell countson 03-02-2022 Erythrocyte distribution width (RBC) [Entitic vol] 44.3 fL 35.1-43.9 [facility] Work Phone: [phone] Erythrocyte distribution width (RBC) [Ratio] 13.9 % 11.6-14.6 [facility] Work Phone: [phone] Immature granulocytes/100 WBC (Bld) 0.400 % 0.0-0.9 [facility] Work Phone: [phone] Comment on above: IG% - Immature Granu locytes (promyelocytes, myelocytes and metamyelocytes) > 1% indicates that a LEFT SHIFT is Present. MCH (RBC) [Entitic mass] 28.8 pg 27.0-32.0 [facility] Work Phone: [phone] Nucleated RBC/100 WBC (Bld) [Ratio] 0 % 0-5 [facility] Work Phone: [phone] MCHC Auto (RBC) [Mass/Vol]on 03-02-2022 MCHC (RBC) [Mass/Vol] 33.3 g/dL 32-36 [facility] Work Phone: [phone] No Panel Informationon 03-02 Estimated GFR (MDRD) Amer 103 mL/min >60 [facility] Work Phone: [phone] Comment on above: GFR Calc Estimated GFR (MDRD) Non-Af Amer 85 mL/min >60 [facility] Work Phone: [phone] Comment on above: Non- GFR Calc Platelets bldon 03-02-2022 Platelets (Bld) [#/Vol] 165 10*3/uL 150-450 [facility] Work Phone: [phone] Serum or plasma albumin epi urement (mass/volume)on 03-02-2022 Albumin [Mass/Vol] 4.5 g/dL 3.2-5.0 [facility] Work Phone: Serum or plasma albumin/glob ulin mass ratioon 03-02-2022 Albumin/Globulin [Mass ratio] 1.6 {ratio} 0.9-2.4 [facility] Work Phone: Serum or plasma calcium epi urement (mass/volume)on 03-02-2022 Calcium [Mass/Vol] 9.3 mg/dL 8.5-10.1 [facility] Work Phone: Comment on above: Slight Lipemia, Resu lt may be falsely increased. Serum or plasma cholesterol in HDL measurement (mass/volume)on 03-02-2022 Cholesterol in HDL [Mass/Vol] 24 mg/dL >40 [facility] Work Phone: Comment on above: The drugs N-Acetylcy steine and Metamizole may falsely depress this assay. Reference Range HDL <40 mg/dL Low HDL Cholesterol HDL >or= 60 mg/dL High HDL Cholesterol Serum or plasma cholesterol in VLDL measurement (mass/volume)on 03-02-2022 Cholesterol in VLDL [Mass/Vol] [facility] Work Phone: Comment on above: Test not performed Serum or plasma creatinine m easurement (mass/volume)on 03-02-2022 Creatinine [Mass/Vol] 1.02 mg/dL 0.70-1.30 [facility] Work Phone: Comment on above: Slight Lipemia, Resu lt may be falsely increased.The validity of the calculated GFR & GFRAA in patients over 70 years has not been determined. Clinical correlation is essential. Serum or plasma low density lipoprotein (LDL) cholesterol measurement (mass/volume)on 03-02-2022 Cholesterol in LDL [Mass/Vol] [facility] Work Phone: Comment on above: Test not performed Serum or plasma urea nitroge n measurement (mass/volume)on 03-02-2022 Urea nitrogen [Mass/Vol] 17 mg/dL 7-18 [facility] Work Phone: Comment on above: Slight Lipemia, Resu lt may be falsely increased. Thin prep Papanicolaou smear with manual screeningon 03-02-2022 Thin prep Papanicolaou smear with manual screening 38 U/L 15-37 [facility] Work Phone: Comment on above: Slight Lipemia, Resu lt may be falsely increased. Thin prep Papanicolaou smear with manual screening 8 5-15 [facility] Work Phone: Basophil percentageon 2021 Bilirubin [Mass/Vol] 0.70 mg/dL 0.20-1.00 [facility] Work Phone: [phone] Comment on above: For patients on eltr ombopag therapy, use of Dimension [place] TBIL is not recommended. Chloride [Moles/Vol] 105 mmol/L 98-107 [facility] Work Phone: Cholesterol [Mass/Vol] 270 mg/dL <[address] [facility] Work Phone: Comment on above: <200 mg/dL Desirable 200-240 mg/dL Borderline >240 mg/dL High Risk Glucose [Mass/Vol] 156 mg/dL 74-106 [facility] Work Phone: Comment on above: Moderate Lipemia, Re sult may be falsely increased.Fasting Glucose result greater than or equal to 126 mg/dL suggests DIABETES MELLITUS per A.D.A. criteria. Potassium [Moles/Vol] 4.4 mmol/L 3.5-5.1 [facility] Work Phone: Protein [Mass/Vol] 7.4 g/dL 6.4-8.2 [facility] Work Phone: [phone] Sodium [Moles/Vol] 136 mmol/L 136-145 [facility] Work Phone: [phone] Triglyceride [Mass/Vol] 1642 mg/dL <199 [facility] Work Phone: [phone] Comment on above: The drugs N-Acetylcy steine and Metamizole may falsely depress this assay. Serum Triglycerides Reference Interval Normal <150 mg/dL Borderline high 150 - 199 mg/dL High 200 - 499 mg/dL Very High > or = 500 mg/dL Laboratory - Chemistry and C hemistry - challengeon 11-27-2021 ALP [Catalytic activity/Vol] 88 U/L 45-117 [facility] Work Phone: [phone] ALT [Catalytic activity/Vol] 61 U/L 16-61 [facility] Work Phone: [phone] CO2 [Moles/Vol] 24.0 mmol/L 21.0-32.0 [facility] Work Phone: [phone] Globulin (S) [Mass/Vol] 3.0 g/dL 2.2-4.2 [facility] Work Phone: [phone] Urea nitrogen/Creatinine [Mass ratio] 17.5 mg/mg 10-20 [facility] Work Phone: No Panel Informationon 11-27 Estimated GFR (MDRD) Amer 102 mL/min >60 [facility] Work Phone: Comment on above: GFR Calc Estimated GFR (MDRD) Non-Af Amer 84 mL/min >60 [facility] Work Phone: Comment on above: Non- GFR Calc Serum or plasma albumin epi urement (mass/volume)on 11-27-2021 Albumin [Mass/Vol] 4.4 g/dL 3.2-5.0 [facility] Work Phone: [phone] Serum or plasma albumin/glob ulin mass ratioon 11-27-2021 Albumin/Globulin [Mass ratio] 1.5 {ratio} 0.9-2.4 [facility] Work Phone: [phone] Serum or plasma calcium epi urement (mass/volume)on 11-27-2021 Calcium [Mass/Vol] 9.0 mg/dL 8.5-10.1 [facility] Work Phone: [phone] Serum or plasma cholesterol in HDL measurement (mass/volume)on 11-27-2021 Cholesterol in HDL [Mass/Vol] 19 mg/dL >40 [facility] Work Phone: Comment on above: The drugs N-Acetylcy steine and Metamizole may falsely depress this assay. Reference Range HDL <40 mg/dL Low HDL Cholesterol HDL >or= 60 mg/dL High HDL Cholesterol Serum or plasma cholesterol in VLDL measurement (mass/volume)on 11-27-2021 Cholesterol in VLDL [Mass/Vol] [facility] Work Phone: Comment on above: Test not performed Serum or plasma creatinine m easurement (mass/volume)on 11-27-2021 Creatinine [Mass/Vol] 1.03 mg/dL 0.70-1.30 [facility] Work Phone: Comment on above: The validity of the calculated GFR & GFRAA in patients over 70 years has not been determined. Clinical correlation is essential. Serum or plasma low density lipoprotein (LDL) cholesterol measurement (mass/volume)on 11-27-2021 Cholesterol in LDL [Mass/Vol] [facility] Work Phone: Comment on above: Test not performed Serum or plasma urea nitroge n measurement (mass/volume)on 11-27-2021 Urea nitrogen [Mass/Vol] 18 mg/dL 7-18 [facility] Work Phone: Thin prep Papanicolaou smear with manual screeningon 11-27-2021 Thin prep Papanicolaou smear with manual screening 47 U/L 15-37 [facility] Work Phone: [phone] Thin prep Papanicolaou smear with manual screening 7 5-15 [facility] Work Phone: Vital Signs Date Time Vital Sign Value Performing Clinician Tremaine frye 12-25-2024 14:09-0400 Diastolic blood pressure 90 mm[Hg] Mignon Ryder APRN.SLIP BRIDGE OPERATOR Work Phone: [facility] 12-25-2024 14:09-0400 Systolic blood pressure 133 mm[Hg] Mignon Ryder APRN.SLIP BRIDGE OPERATOR Work Phone: [facility] 12-25-2024 14:07-0400 Body mass index (BMI) [Ratio] 35.54 kg/m2 Mignon Ryder TEST DESK SUPERVISOR.SLIP BRIDGE OPERATOR Work Phone: [facility] 12-25-2024 14:07-0400 Body weight 115.6 kg Mignon Ryder TEST DESK SUPERVISOR.SLIP BRIDGE OPERATOR Work Phone: [facility] 12-25-2024 14:07-0400 Heart rate 90 /min Mignon Ryder TEST DESK SUPERVISOR.SLIP BRIDGE OPERATOR Work Phone: [facility] 12-25-2024 14:07-0400 SaO2% (BldA) [Mass fraction] 98 % Mignon Ryder TEST DESK SUPERVISOR.SLIP BRIDGE OPERATOR Work Phone: [facility] 10-20-2024 12:25-0500 Body height 180.3 cm Shiva Faustin MD Work Phone: [facility] 10-20-2024 12:25-0500 Body mass index (BMI) [Ratio] 35.29 kg/m2 Shiva Faustin MD Work Phone: [facility] 10-20-2024 12:25-0500 Body temperature 97.3 [degF] Shiva Faustin MD Work Phone: [facility] 10-20-2024 12:25-0500 Body weight 114.76 kg Shiva Faustin MD Work Phone: [facility] 10-20-2024 12:25-0500 Diastolic blood pressure 68 mm[Hg] Shiva Faustin MD Work Phone: [facility] 10-20-2024 12:25-0500 Heart rate 90 /min Shiva Faustin MD Work Phone: [facility] 10-20-2024 12:25-0500 Respiratory rate 12 /min Shiva Faustin MD Work Phone: [facility] 10-20-2024 12:25-0500 SaO2% (BldA) [Mass fraction] 97 % Shiva Faustin MD Work Phone: [facility] 10-20-2024 12:25-0500 Systolic blood pressure 130 mm[Hg] Shiva Faustin MD Work Phone: [facility] 07-30-2024 11:12-0500 Body mass index (BMI) [Ratio] 34.66 kg/m2 Eunice Mata APRN.BUNDLE WRAPPER Work Phone: [facility] 07-30-2024 11:12-0500 Body temperature 97.7 [degF] Eunice aMta APRN.BUNDLE WRAPPER Work Phone: [facility] 07-30-2024 11:12-0500 Body weight 114.8 kg Eunice Mata APRN.BUNDLE WRAPPER Work Phone: [facility] 07-30-2024 11:12-0500 Diastolic blood pressure 80 mm[Hg] Eunice Mata APRN.BUNDLE WRAPPER Work Phone: [facility] 07-30-2024 11:12-0500 Heart rate 92 /min Eunice Mata APRN.BUNDLE WRAPPER Work Phone: [facility] 07-30-2024 11:12-0500 Respiratory rate 20 /min Eunice Mata APRN.BUNDLE WRAPPER Work Phone: [facility] 07-30-2024 11:12-0500 SaO2% (BldA) [Mass fraction] 98 % Eunice Mata APRN.BUNDLE WRAPPER Work Phone: [facility] 07-30-2024 11:12-0500 Systolic blood pressure 114 mm[Hg] Eunice Mata APRN.BUNDLE WRAPPER Work Phone: [facility] 07-12-2024 10:12-0400 Body height 182 cm Shiva Faustin MD Work Phone: [facility] 07-12-2024 10:12-0400 Body mass index (BMI) [Ratio] 34.78 kg/m2 Shiva Faustin MD Work Phone: [facility] 07-12-2024 10:12-0400 Body weight 115.21 kg Shiva Faustin MD Work Phone: [facility] 07-12-2024 10:12-0400 Diastolic blood pressure 80 mm[Hg] Shiva Faustin MD Work Phone: [facility] 07-12-2024 10:12-0400 Heart rate 72 /min Shiva Faustin MD Work Phone: [facility] 07-12-2024 10:12-0400 SaO2% (BldA) [Mass fraction] 98 % Shiva Faustin MD Work Phone: [facility] 07-12-2024 10:12-0400 Systolic blood pressure 118 mm[Hg] Shiva Faustin MD Work Phone: [facility] 05-23-2024 10:37-0400 Body temperature 97.59 [degF] Marian Flores TEST DESK SUPERVISOR.BUNDLE WRAPPER Work Phone: [facility] 05-23-2024 10:37-0400 Body weight 116.1 kg Marian Flores TEST DESK SUPERVISOR.BUNDLE WRAPPER Work Phone: [facility] 05-23-2024 10:37-0400 Diastolic blood pressure 84 mm[Hg] Marian Flores TEST DESK SUPERVISOR.BUNDLE WRAPPER Work Phone: [facility] 05-23-2024 10:37-0400 Heart rate 90 /min Marian Flores TEST DESK SUPERVISOR.BUNDLE WRAPPER Work Phone: [facility] 05-23-2024 10:37-0400 Respiratory rate 16 /min Marian Flores TEST DESK SUPERVISOR.BUNDLE WRAPPER Work Phone: [facility] 05-23-2024 10:37-0400 SaO2% (BldA) [Mass fraction] 99 % Marian Flores TEST DESK SUPERVISOR.BUNDLE WRAPPER Work Phone: [facility] 05-23-2024 10:37-0400 Systolic blood pressure 136 mm[Hg] Marian Flores TEST DESK SUPERVISOR.BUNDLE WRAPPER Work Phone: [facility] 05-09-2024 07:25-0400 Body temperature 98.01 [degF] Rylee Kimbrough PA Work Phone: [facility] 05-09-2024 07:25-0400 Body weight 114.9 kg Rylee Kimbrough PA Work Phone: [facility] 05-09-2024 07:25-0400 Diastolic blood pressure 82 mm[Hg] Krislyn Aberegg PA Work Phone: [facility] 05-09-2024 07:25-0400 Heart rate 89 /min Krislyn Aberegg PA Work Phone: [facility] 05-09-2024 07:25-0400 Respiratory rate 16 /min Krislyn Aberegg PA Work Phone: [facility] 05-09-2024 07:25-0400 SaO2% (BldA) [Mass fraction] 97 % Krislyn Aberegg PA Work Phone: [facility] 05-09-2024 07:25-0400 Systolic blood pressure 110 mm[Hg] Krislyn Aberegg PA Work Phone: [facility] 10-15-2023 10:06-0500 Body temperature 98.2 [degF] Dr. Dusty Martinez Work Phone: [facility] 10-15-2023 10:06-0500 Diastolic blood pressure 82 mm[Hg] Dr. Dusty Martinez Work Phone: [facility] 10-15-2023 10:06-0500 Heart rate 98 /min Dr. Dusty Martinez Work Phone: [facility] 10-15-2023 10:06-0500 Respiratory rate 16 /min Dr. Dusty Martinez Work Phone: [facility] 10-15-2023 10:06-0500 SaO2% (BldA) [Mass fraction] 97 % Dr. Dusty Martinez Work Phone: [facility] 10-15-2023 10:06-0500 Systolic blood pressure 122 mm[Hg] Dr. Dusty Martinez Work Phone: [facility] Encounters Encounter Date Encounter Type Care Provider Facility Start: 01-02-2025 End: 01-02-2025 Follow-up encounter Shiva Faustin MD Work Phone: [facility] [place] Comment on above: Results Start: 01-01-2025 End: 01-01-2025 ambulatory SHIVA FAUSTIN Facility:[facility] Start: 12-25-2024 End: 12-25-2024 ambulatory MIGNON RYDER Facility:[facility] Start: 12-25-2024 End: 12-25-2024 Office outpatient visit 25 minutes Mignon Aleksey GALVANSLIP BRIDGE OPERATOR Work Phone: [facility] [place] Comment on above: Adverse effect of dr carrillo, initial encounter (Primary Dx); Gastroesophageal reflux disease, unspecified whether esophagitis present Start: 10-20-2024 End: 10-20-2024 Patient encounter procedure Shiva Faustin MD Work Phone: [facility] [place] Comment on above: Gastroesophageal ref lux disease, unspecified whether esophagitis present (Primary Dx); Muscle spasms of neck; Persistent cough for 3 weeks or longer; Past history of chewing tobacco use Start: 10-20-2024 End: 10-20-2024 ambulatory SHIVA FAUSTIN Facility:[facility] Start: 10-16-2024 End: 10-16-2024 Telephone encounter Shiva Faustin MD Work Phone: [facility] [place] Comment on above: Medication Request Start: 07-30-2024 End: 07-30-2024 ambulatory SHIVA FAUSTIN Facility:[facility] Start: 07-30-2024 End: 07-30-2024 Patient encounter procedure Eunice Mata APRN.BUNDLE WRAPPER Work Phone: [place] [facility] Comment on above: Rhinosinusitis (Prim chad Dx) Start: 07-25-2024 End: 07-25-2024 Telephone encounter Shiva Faustin MD Work Phone: [facility] Comment on above: Medication Update (P rior authorization ) Start: 07-13-2024 End: 08-08-2024 Telephone encounter Shiva Faustin MD Work Phone: [facility] [place] Comment on above: Results Start: 07-12-2024 End: 09-12-2024 Telephone encounter Shiva Faustin MD Work Phone: [facility] [place] Start: 07-12-2024 End: 07-12-2024 ambulatory SHIVA FAUSTIN Facility:[facility] Start: 07-12-2024 End: 07-12-2024 Patient encounter procedure Shiva Faustin MD Work Phone: [facility] [place] Comment on above: Encounter for medica l examination to establish care (Primary Dx); Class 1 obesity without serious comorbidity with body mass index (BMI) of 34.0 to 34.9 in adult, unspecified obesity type; Tension headaches; Hyperlipidemia, unspecified hyperlipidemia type; Special screening examination for viral disease; Screening for HIV (human immunodeficiency virus); Encounter for immunization Start: 07-12-2024 End: 07-12-2024 Patient encounter status Shiva Faustin MD Work Phone: [facility] Work Phone: Start: 07-12-2024 End: 07-12-2024 ambulatory SHIVA FAUSTIN Facility:[facility] Start: 07-12-2024 Encounter for genera l adult medical examination without abnormal findings SHIVA FAUSTIN [facility] Start: 05-23-2024 End: 05-23-2024 ambulatory SHIVA FAUSTIN Facility:[facility] Start: 05-23-2024 End: 05-23-2024 Patient encounter procedure Marian Flores APRN.CNP Work Phone: [place] [facility] Comment on above: Poison karla dermatiti s (Primary Dx) Start: 05-09-2024 End: 05-09-2024 Telephone encounter Rylee COOK Work Phone: [facility] Comment on above: Results Start: 05-09-2024 End: 05-09-2024 ambulatory SHIVA FAUSTIN Facility:[facility] Start: 05-09-2024 End: 05-09-2024 Patient encounter procedure Rylee COOK Work Phone: [facility] Comment on above: URI, acute (Primary Dx); Sore throat Start: 12-10-2023 End: 12-10-[address] Dusty Martinez Work Phone: [facility] Work Phone: Start: 12-10-2023 End: 12-10-[address] Dusty Martinez Work Phone: [facility] Start: 10-15-2023 End: 10-15-2023 ambulatory Dusty Martinez Facility:[facility] Start: 10-15-2023 End: 10-15-[address] Dusty Matrinez Work Phone: [facility] Work Phone: Start: 06-04-2023 End: 06-04-2023 ambulatory Lien Cabrera [facility] Work Phone: Start: 06-04-2023 End: 06-04-2023 Patient encounter procedure [facility] Work Phone: Start: 03-06-2022 End: 03-06-[address] [facility] Start: 03-02-2022 End: 03-02-[address] [facility] Start: 11-27-2021 End: 11-27-[address] [facility] Procedures Date Procedure Procedure Detail Performing Clinician Start: 01-01-2025 Lipid 1996 panel - S mg or Plasma Shiva Fasutin MD Work Phone: Start: 07-12-2024 [employer] COVI D-19 VACCINE AGE 12+ YR (COMIRNATY) Shiva Faustin MD Work Phone: Start: 07-12-2024 Lipid 1996 panel - S mg or Plasma Shiva Faustin MD Work Phone: Start: 05-09-2024 STREP A MOLECULAR (POC) Rylee COOK Work Phone: Plan of Treatment Date Care Activity Detail Author Start: 01-01-2030 Lipid panel Lip[facility] Screening [facility] Start: 07-12-2029 Lipid panel [facility] Scre[facility] Start: 07-13-2025 End: 07-13-2025 Patient encounter procedure 07/13/2025 8:00 AM EDT Office Visit [facility] [place] [address] [place] [address] Shiva Faustin MD [address] [place] [address] annual physical [facility] [place] Comment on above: annual physical Start: 07-12-2025 Hepatitis B Vaccine (1 of 3 - 19+ 3-dose series) Hepatitis B Vaccine (1 of 3 - 19+ 3-dose series) [facility] Comment on above: Postponed from 06/12 (Declined at this time) Start: 04-17-2025 Urine microalbumin profile DTaP,Tdap,Td Vaccine (2 - Td or Tdap) [facility] Start: 01-14-2025 End: 04-15-2025 Lipid 1996 panel - Serum or Plasma LIPID PANEL BASIC Lab Routine Hyperlipidemia, unspecified hyperlipidemia type Expected: 01/14/2025, Expires: 04/15/2025 [facility] Work Phone: Comment on above: Expected: 01/14/2025 , Expires: 04/15/2025 Start: 01-01-2025 End: 01-01-2025 Patient encounter procedure 01/01/2025 1:00 PM EDT Office Visit General Surgery [address] [place] [address] Lisa Murphy APRN.BUNDLE WRAPPER [address] [place] [address] GERD General Surgery Comment on above: GERD Start: 12-06-2024 End: 12-06-2024 Patient encounter procedure 12/06/2024 3:45 PM EDT Office Visit General Surgery [address] [place] [address] Artem Bailey MD [address] [place] [address] Gastroesophageal reflux disease, unspecified whether esophagitis present [K21.9] General Surgery Comment on above: Gastroesophageal ref lux disease, unspecified whether esophagitis present [K21.9] Start: 07-14-2024 End: 10-13-2024 Comprehensive metabolic 2000 panel - Serum or Plasma COMPREHENSIVE METABOLIC PANEL Lab Routine Hyperlipidemia, unspecified hyperlipidemia type Expected: 07/14/2024, Expires: 10/13/2024 [facility] Comment on above: Expected: 07/14/2024 , Expires: 10/13/2024 Start: 07-14-2024 End: 10-13-2024 Lipid 1996 panel - Serum or Plasma LIPID PANEL BASIC Lab Routine Hyperlipidemia, unspecified hyperlipidemia type Expected: 07/14/2024, Expires: 10/13/2024 [facility] Work Phone: Comment on above: Expected: 07/14/2024 , Expires: 10/13/2024 Start: 07-12-2024 End: 07-12-2024 Patient encounter procedure 07/12/2024 10:20 AM EDT Office Visit [facility] [place] [address] [place], [place] [id number] Shiva Faustin MD [address] [place], [place] [id number] [facility] [place] Comment on above: [facility] Start: 05-21-2024 Covid-19 Vaccine () Covid-19 Vaccine () [facility] Start: 05-21-2024 Influenza vaccination Influenza Vacc ine (#1) [facility] Start: 05-21-2023 Covid-19 Vaccine ( season) Covid-19 Vaccine () [facility] Start: 2015 Lipid panel Lip[facility] Scre[facility] Start: 1999 Hepatitis B Vaccine (1 of 3 - 19+ 3-dose series) Hepatitis B Vaccine (1 of 3 - 19+ 3-dose series) [facility] Start: 1998 Anxiety Screening Anxiety Screening [facility] Start: 1998 Depression Screening Depression Scre stephie [facility] Start: 1998 Hepatitis C screening Hepatitis C Akhil mack [facility] Start: 1998 HIV screening HIV Screening [facility] COVID & INFLUENZA A/ B & RSV NAAT, ROUTINE COVID & INFLUENZA A/B & RSV NAAT, ROUTINE Microbiology Routine URI, acute Ordered: 05/09/2024 [facility] Work Phone: Comment on above: Ordered: 05/09/2024 Immunizations Immunization Date Immunization Notes Care Provider Fa cility 07-12-2024 COVID-19 vaccine, ag e 12+ yr ([employer]) Shiva Faustin MD Work Phone: [facility] 07-12-2024 influenza, seasonal, injectable Shiva Faustin MD Work Phone: [facility] 07-01-2020 influenza, injectabl e, quadrivalent, contains preservative Mignon Ryder TEST DESK SUPERVISOR.SLIP BRIDGE OPERATOR Work Phone: [facility] 07-01-2020 influenza virus vaccine, unspecified formulation Rylee COOK Work Phone: [facility] 10-02-2015 influenza, seasonal, injectable Mignon Ryder TEST DESK SUPERVISOR.SLIP BRIDGE OPERATOR Work Phone: [facility] 04-17-2015 tetanus toxoid, redu myles diphtheria toxoid, and acellular pertussis vaccine, adsorbed Mignon Ryder TEST DESK SUPERVISOR.SLIP BRIDGE OPERATOR Work Phone: [facility] Payers Date Payer Category Payer Unknown [id number] 2024 Private Health Insurance [id number] 2024 Unknown [id number] 2023 Self-pay [id number] 2023 Unknown [id number] Unknown [id number] Unknown [id number] Unknown [id number] Unknown [id number] Social History Date Type Detail Facility Start: 06-15-2021 End: 10-15-2023 Tobacco smoking status NHIS Unknown if ever smoked [facility] Start: 08-29-2020 None [facility] Start: 08-29-2020 Spouse/ Signif icant Other [facility] Start: 08-29-2020 Chew [facility] Start: 1980 Sex Assigned At Male [facility] Start: 05-09-2024 [facility] Start: 05-09-2024 Tobacco use and exposure User of smokeless tobacco [facility] Start: 05-09-2024 End: 07-12-2024 History of Social function [facility] Start: 05-09-2024 End: 07-12-2024 Tobacco use panel [facility] Start: 1980 Sex assigned at Not on file [facility] Start: 07-12-2024 [facility] Start: 07-12-2014 History of tobacco use Current smoke r [facility] Start: 07-12-2014 History of tobacco use Cigarette Smo ker [facility] Start: 07-12-2024 Tobacco use and exposure Former smokeless tobacco user [facility] End: 05-21-2024 History of tobacco use Chews Tobacco [facility] Start: 07-12-2024 End: 12-25-2024 Alcoholic beverage intake Current drinker of alcohol (finding) [facility] National Score (1-100), lower number is lower risk 64 [facility] Start: 07-12-2024 Tobacco Comment 1 can every ot her day for 10 years [facility] Start: 07-12-2024 Alcohol Comment [facility] Clinical Notes 05-09-2024 to 01-02-2025 Telephone Encounter - Melody Shay MA - 01/02/2025 9:03 AM EDTTelephone Encounter - Melody Shay MA - 01/02/2025 9:03 AM EDTPatient InstructionsPatient InstructionsPatient Instructions Note Date & Type Note [facility] 01-02-2025 Telephone encounter Note Pt notified of results via Net[employer]er[employer]. Melody Shay Ma [facility] 01-02-2025 Miscellaneous Notes Pt notified of results via [employer]. Melody Shay Ma ----- Message from Shiva Faustin MD sent at 01/02/2025 6:58 AM EDT ----- Cholesterol much improved from 5 months ago. Continue regimen of Lipitor and Tricor as prescribed. documented in this encounter [facility] 01-02-2025 Telephone encounter Note ----- Message from Shiva Faustin MD sent at 01/02/2025 6:58 AM EDT ----- Cholesterol much improved from 5 months ago. Continue regimen of Lipitor and Tricor as prescribed. [facility] 12-25-2024 Instructions Mignon Ryder APRN.CNS - 12/25/2024 2:36 PM EDT - Resume taking Sertraline by starting with 25 mg daily for one to two weeks. - After one to two weeks, increase the Sertraline dose to 50 mg daily. - Continue taking Omeprazole as prescribed; a refill has been provided. - Reschedule your esophageal scope with general surgery to address palpitations after eating. - If symptoms persist or worsen, contact the clinic for further evaluation. documented in this encounter [facility] 12-25-2024 Note HNO ID: [id number] Author: MIGNON RYDER APRN.SLIP BRIDGE OPERATOR Service: ? Author Type: Nurse Specialist Type: Progress Notes Filed: 12/25/2024 14:45 Note Text: Subjective Patient ID: Daniel is a 44 year old male who presents for mood swings (has been off Zoloft for about 1 month and today noted to be very irritable and feeling panic). HPI Sertraline Withdrawal: - Abruptly discontinued sertraline 50 mg daily about a month ago after 8 years of use. - Experienced lightheadedness and a loopy feeling for a few weeks post-discontinuation. - Currently experiencing mood swings, irritability, and a new onset of panic attacks. - Reports dizziness, muscle aches, and fatigue. - Denies headaches or nausea. - Reports insomnia and brain zaps. - Denies any previous history of panic attacks. - Describes feeling numb and having difficulty concentrating. Palpitations: - Reports palpitations, described as a stronger heartbeat, occurring after meals for the past 6 months. - Sensation of palpitations felt in the throat. - Drinks coffee in the morning; denies excessive caffeine or alcohol consumption. - Currently taking omeprazole, which provides some relief. Was feeling improved so cancelled general surgery appointment. ROS Constitutional: (+) fatigue, (+) sleep disturbance Head: (-) headaches Cardiovascular: (+) palpitations Gastrointestinal: (-) nausea, (-) heartburn Musculoskeletal: (+) myalgia Neurological: (+) dizziness, (+) shakiness, (+) ?brain zaps? Psychiatric: (+) anxiety, (+) panic, (+) irritability, (+) mood swings, (+) agitation, (-) abnormal dreams Objective BP 133/90 Pulse 90 Wt 115.6 kg (254 lb 13.6 oz) SpO2 98% BMI 35.54 kg/m? Physical Exam Vitals and nursing note reviewed. Constitutional: Appearance: Normal appearance. HENT: Head: Normocephalic and atraumatic. Eyes: Conjunctiva/sclera: Conjunctivae normal. Neck: Thyroid: No thyromegaly. Cardiovascular: Rate and Rhythm: Normal rate and regular rhythm. Heart sounds: Normal heart sounds. Pulmonary: Effort: Pulmonary effort is normal. Breath sounds: Normal breath sounds. Skin: General: Skin is warm and dry. Neurological: General: No focal deficit present. Mental Status: He is alert and oriented to person, place, and time. ASSESSMENT/PLAN: 1. Adverse effect of drug, initial encounter - ICD9: E947.9, ICD10: T50.905A (primary diagnosis) Abruptly stopped sertraline due to running out, thinking he no longer needed it about one month ago. Now notes continues withdrawal symptoms. Recommend resuming, taper off slowly if discontinues in the future. Should let us know if not feeling improved. - SERTRALINE 50 MG TABLET 2. Gastroesophageal reflux disease, unspecified whether esophagitis present - ICD9: 530.81, ICD10: K21.9 Recommend reschedule general surgery appointment, continue on PPI which is helping symptoms. - OMEPRAZOLE 40 MG CAPSULE,DELAYED RELEASE Mignon Ryder, MARLA.SLIP BRIDGE OPERATOR Medical Decision Making: Problems: Moderate: 1+ chronic illnesses with change Risk: Moderate: Drug management Medical Decision Making Level: 4 - Moderate [facility] 12-25-2024 History of Present illness Narrative Subjective Patient ID: Daniel is a 44 year old male who presents for mood swings (has been off Zoloft for about 1 month and today noted to be very irritable and feeling panic). HPI Sertraline Withdrawal: - Abruptly discontinued sertraline 50 mg daily about a month ago after 8 years of use. - Experienced lightheadedness and a loopy feeling for a few weeks post-discontinuation. - Currently experiencing mood swings, irritability, and a new onset of panic attacks. - Reports dizziness, muscle aches, and fatigue. - Denies headaches or nausea. - Reports insomnia and brain zaps. - Denies any previous history of panic attacks. - Describes feeling numb and having difficulty concentrating. Palpitations: - Reports palpitations, described as a stronger heartbeat, occurring after meals for the past 6 months. - Sensation of palpitations felt in the throat. - Drinks coffee in the morning; denies excessive caffeine or alcohol consumption. - Currently taking omeprazole, which provides some relief. Was feeling improved so cancelled general surgery appointment. ROS Constitutional: (+) fatigue, (+) sleep disturbance Head: (-) headaches Cardiovascular: (+) palpitations Gastrointestinal: (-) nausea, (-) heartburn Musculoskeletal: (+) myalgia Neurological: (+) dizziness, (+) shakiness, (+) brain zaps Psychiatric: (+) anxiety, (+) panic, (+) irritability, (+) mood swings, (+) agitation, (-) abnormal dreams Objective BP 133/90 Pulse 90 Wt 115.6 kg (254 lb 13.6 oz) SpO2 98% BMI 35.54 kg/m Physical Exam Vitals and nursing note reviewed. Constitutional: Appearance: Normal appearance. HENT: Head: Normocephalic and atraumatic. Eyes: Conjunctiva/sclera: Conjunctivae normal. Neck: Thyroid: No thyromegaly. Cardiovascular: Rate and Rhythm: Normal rate and regular rhythm. Heart sounds: Normal heart sounds. Pulmonary: Effort: Pulmonary effort is normal. Breath sounds: Normal breath sounds. Skin: General: Skin is warm and dry. Neurological: General: No focal deficit present. Mental Status: He is alert and oriented to person, place, and time. ASSESSMENT/PLAN: 1. Adverse effect of drug, initial encounter - ICD9: E947.9, ICD10: T50.905A (primary diagnosis) Abruptly stopped sertraline due to running out, thinking he no longer needed it about one month ago. Now notes continues withdrawal symptoms. Recommend resuming, taper off slowly if discontinues in the future. Should let us know if not feeling improved. - SERTRALINE 50 MG TABLET 2. Gastroesophageal reflux disease, unspecified whether esophagitis present - ICD9: 530.81, ICD10: K21.9 Recommend reschedule general surgery appointment, continue on PPI which is helping symptoms. - OMEPRAZOLE 40 MG CAPSULE,DELAYED RELEASE Mignon Ryder APRN.SLIP BRIDGE OPERATOR Medical Decision Making: Problems: Moderate: 1+ chronic illnesses with change Risk: Moderate: Drug management Medical Decision Making Level: 4 - Moderate documented in this encounter [facility] 10-20-2024 Note HNO ID: [id number] Author: SHIVA FAUSTIN MD Service: ? Author Type: Physician Type: Progress Notes Filed: 10/20/2024 15:19 Note Text: Chief Complaint Patient presents with: Same Day Appointment: throat issues- feels heart beat in throat and cough x 2 months HPI Cliff Solorzano is a 44 year old male who presents here today for Above Complaints.. Patient states that he has had pulse sensation on his neck just above his sternum after eating and has had intermittent dry cough. Admits to GERD with heartburn which is treated with Omeprazole. Denies dysphagia, odynophagia, early satiety, weight loss, night sweats, chest pain, palpitations, tachycardia. Dry cough occurs about every 30-40 minutes. Admits to some post nasal drip. Does not typically get allergies this time of year. No SOB/wheezing with cough. Quit chewing 6 months ago. Past medical history, appointments, medications, allergies reviewed. Previous Medical History PAST MEDICAL HISTORY Diagnosis Date Anxiety and depression Chewing tobacco use GERD (gastroesophageal reflux disease) History of tobacco use Hyperlipidemia Obesity Tension headache Previous Surgical History PAST SURGICAL HISTORY Procedure Laterality Date COLONOSCOPY 2021 normal Family History FAMILY HISTORY Problem Relation Age of Onset Hyperlipidemia Mother Lymphoma Maternal Grandfather Hypertension Maternal Grandfather Lymphoma Paternal Grandfather No Known Problems Son No Known Problems Daughter Patient Allergies ALLERGIES Allergen Reactions Crestor [Rosuvastat* Myalgia Current Medications Current Outpatient Medications on File Prior to Visit Medication Sig fenofibrate nanocrystallized (TRICOR) 145 mg tablet Take 1 tablet by mouth once daily. atorvastatin (LIPITOR) 40 mg tablet Take 1 tablet by mouth once daily. omeprazole (PRILOSEC) 20 mg capsule Take 1 capsule by mouth once daily. sertraline (ZOLOFT) 100 mg tablet Take 1 tablet by mouth once daily. (Patient taking differently: Take 50 mg by mouth once daily.) pitavastatin (LIVALO) 4 mg tablet Take 1 tablet by mouth once daily. (Patient not taking: Reported on 10/20/2024) No current facility-administered medications on file prior to visit. Social History Social History Tobacco Use Smoking status: Former Current packs/day: 0.50 Average packs/day: 0.5 packs/day for 10.3 years (5.1 ttl pk-yrs) Types: Cigarettes Start date: 07/12/2014 Smokeless tobacco: Former Types: Chew Quit date: 05/2024 Tobacco comments: 1 can every other day for 10 years Vaping Use Vaping status: Never Used Substance Use Topics Alcohol use: Yes Comment: monthly Drug use: Never Review of Symptoms REVIEW OF SYSTEMS See HPI EXAM: BP 130/68 (BP Site: Left Arm, BP Position: Sitting, BP Cuff Size: Large Adult) Pulse 90 Temp 36.3 ?C (97.3 ?F) Resp 12 Ht 180.3 cm (5' 11) Wt 114.8 kg (253 lb) SpO2 97% BMI 35.29 kg/m? General Appearance: Well appearing, alert, in no acute distress, well-hydrated, well nourished.. Skin: Skin color, texture, turgor normal, no suspicious rashes or lesions. Neck: Supple, no adenopathy; thyroid symmetric, normal size, no bruits. Lungs: Lungs clear to auscultation. No wheezing, rhonchi, rales.. Heart: RRR without murmur, gallop, or rubs. No ectopy. Extremities: No deformities, edema, skin discoloration, clubbing or cyanosis. Good capillary refill. Health Maintenance List Depression Screening Never done Anxiety Screening Never done Hepatitis B Vaccine(1 of 3 - 19+ 3-dose series) due on 07/12/2025 DTaP,Tdap,Td Vaccine(2 - Td or Tdap) due on 04/17/2025 Lipid Screening due on 07/12/2029 Influenza Vaccine Completed Hepatitis C Screening Completed HIV Screening Completed Covid-19 Vaccine Completed HPV Vaccine Aged Out ASSESSMENT/PLAN: 1. Gastroesophageal reflux disease, unspecified whether esophagitis present - ICD9: 530.81, ICD10: K21.9 (primary diagnosis) Patient with symptoms of pulsations in his neck after eating and GERD. Normal exam today. Will increase Omeprazole to 40 mg daily and refer for EGD. Patient has history of chewing tobacco use which increases risk of esophageal cancer. - OMEPRAZOLE 40 MG CAPSULE,DELAYED RELEASE - CONSULT TO GENERAL SURGERY 2. Muscle spasms of neck - ICD9: 728.85, ICD10: M62.838 See above. 3. Persistent cough for 3 weeks or longer - ICD9: 786.2, ICD10: R05.3 Suspect 2/2 allergic rhinitis vs GERD. Increase PPI. Start 2nd gen antihistamines OTC. If not improving in 1-2 weeks, notify the office and would check PFTs. 4. Past history of chewing tobacco use - ICD9: V15.82, ICD10: Z87.891 Congratulated on cessation. Shiva Faustin MD [facility] 10-20-2024 History of Present illness Narrative Chief Complaint Patient presents with: Same Day Appointment: throat issues- feels heart beat in throat and cough x 2 months HPI Cliff Solorzano is a 44 year old male who presents here today for Above Complaints.. Patient states that he has had pulse sensation on his neck just above his sternum after eating and has had intermittent dry cough. Admits to GERD with heartburn which is treated with Omeprazole. Denies dysphagia, odynophagia, early satiety, weight loss, night sweats, chest pain, palpitations, tachycardia. Dry cough occurs about every 30-40 minutes. Admits to some post nasal drip. Does not typically get allergies this time of year. No SOB/wheezing with cough. Quit chewing 6 months ago. Past medical history, appointments, medications, allergies reviewed. Previous Medical History PAST MEDICAL HISTORY Diagnosis Date Anxiety and depression Chewing tobacco use GERD (gastroesophageal reflux disease) History of tobacco use Hyperlipidemia Obesity Tension headache Previous Surgical History PAST SURGICAL HISTORY Procedure Laterality Date COLONOSCOPY 2021 normal Family History FAMILY HISTORY Problem Relation Age of Onset Hyperlipidemia Mother Lymphoma Maternal Grandfather Hypertension Maternal Grandfather Lymphoma Paternal Grandfather No Known Problems Son No Known Problems Daughter Patient Allergies ALLERGIES Allergen Reactions Crestor [Rosuvastat* Myalgia Current Medications Current Outpatient Medications on File Prior to Visit Medication Sig fenofibrate nanocrystallized (TRICOR) 145 mg tablet Take 1 tablet by mouth once daily. atorvastatin (LIPITOR) 40 mg tablet Take 1 tablet by mouth once daily. omeprazole (PRILOSEC) 20 mg capsule Take 1 capsule by mouth once daily. sertraline (ZOLOFT) 100 mg tablet Take 1 tablet by mouth once daily. (Patient taking differently: Take 50 mg by mouth once daily.) pitavastatin (LIVALO) 4 mg tablet Take 1 tablet by mouth once daily. (Patient not taking: Reported on 10/20/2024) No current facility-administered medications on file prior to visit. Social History Social History Tobacco Use Smoking status: Former Current packs/day: 0.50 Average packs/day: 0.5 packs/day for 10.3 years (5.1 ttl pk-yrs) Types: Cigarettes Start date: 07/12/2014 Smokeless tobacco: Former Types: Chew Quit date: 05/2024 Tobacco comments: 1 can every other day for 10 years Vaping Use Vaping status: Never Used Substance Use Topics Alcohol use: Yes Comment: monthly Drug use: Never Review of Symptoms REVIEW OF SYSTEMS See HPI EXAM: BP 130/68 (BP Site: Left Arm, BP Position: Sitting, BP Cuff Size: Large Adult) Pulse 90 Temp 36.3 C (97.3 F) Resp 12 Ht 180.3 cm (5' 11) Wt 114.8 kg (253 lb) SpO2 97% BMI 35.29 kg/m General Appearance: Well appearing, alert, in no acute distress, well-hydrated, well nourished.. Skin: Skin color, texture, turgor normal, no suspicious rashes or lesions. Neck: Supple, no adenopathy; thyroid symmetric, normal size, no bruits. Lungs: Lungs clear to auscultation. No wheezing, rhonchi, rales.. Heart: RRR without murmur, gallop, or rubs. No ectopy. Extremities: No deformities, edema, skin discoloration, clubbing or cyanosis. Good capillary refill. Health Maintenance List Depression Screening Never done Anxiety Screening Never done Hepatitis B Vaccine(1 of 3 - 19+ 3-dose series) due on 07/12/2025 DTaP,Tdap,Td Vaccine(2 - Td or Tdap) due on 04/17/2025 Lipid Screening due on 07/12/2029 Influenza Vaccine Completed Hepatitis C Screening Completed HIV Screening Completed Covid-19 Vaccine Completed HPV Vaccine Aged Out ASSESSMENT/PLAN: 1. Gastroesophageal reflux disease, unspecified whether esophagitis present - ICD9: 530.81, ICD10: K21.9 (primary diagnosis) Patient with symptoms of pulsations in his neck after eating and GERD. Normal exam today. Will increase Omeprazole to 40 mg daily and refer for EGD. Patient has history of chewing tobacco use which increases risk of esophageal cancer. - OMEPRAZOLE 40 MG CAPSULE,DELAYED RELEASE - CONSULT TO GENERAL SURGERY 2. Muscle spasms of neck - ICD9: 728.85, ICD10: M62.838 See above. 3. Persistent cough for 3 weeks or longer - ICD9: 786.2, ICD10: R05.3 Suspect 2/2 allergic rhinitis vs GERD. Increase PPI. Start 2nd gen antihistamines OTC. If not improving in 1-2 weeks, notify the office and would check PFTs. 4. Past history of chewing tobacco use - ICD9: V15.82, ICD10: Z87.891 Congratulated on cessation. Shiva Faustin MD documented in this encounter [facility] 10-16-2024 Telephone encounter Note Phoned patient and reviewed results with him. Patient voiced understanding Jenae Jara LPN [facility] 10-16-2024 Miscellaneous Notes Phoned patient and reviewed results with him. Patient voiced understanding Jenae Jara LPN Based on previous results, would recommend starting lipitor 40 mg daily along with fibrate and recheck labs in 3 months as ordered. Call with side effects, most common being muscle aches. Patient was seen 07/12/24. Pt's total cholesterol and triglycerides were very elevated since patient was off of his pitavastatin for a period of time. Pt was advised to restart pitavastatin as prescribed, with a recheck in 2-3 months. Fenofibrate was also added due to high triglycerides and increased risk for pancreatitis. Pt's requesting an alternative medication to pitavastatin, as it is not covered by his insurance. No recent lipid recheck completed. Does provider wish to order and have pt complete? Patient requesting refill of fenofibrate. Pended. Please call patient with an update to these questions/requests. Deborah Narayanan RN documented in this encounter [facility] 10-16-2024 Telephone encounter Note Based on previous results, would recommend starting lipitor 40 mg daily along with fibrate and recheck labs in 3 months as ordered. Call with side effects, most common being muscle aches. [facility] 10-16-2024 Telephone encounter Note Patient was seen 07/12/24. Pt's total cholesterol and triglycerides were very elevated since patient was off of his pitavastatin for a period of time. Pt was advised to restart pitavastatin as prescribed, with a recheck in 2-3 months. Fenofibrate was also added due to high triglycerides and increased risk for pancreatitis. Pt's requesting an alternative medication to pitavastatin, as it is not covered by his insurance. No recent lipid recheck completed. Does provider wish to order and have pt complete? Patient requesting refill of fenofibrate. Pended. Please call patient with an update to these questions/requests. Deborah Narayanan RN [facility] 08-08-2024 Telephone encounter Note Left message again for patient to call back office. Please see note below from 07/31 Susanne Batista MA [facility] 08-08-2024 Miscellaneous Notes Left message again for patient to call back office. Please see note below from 07/31 Susanne Batista MA Called [facility] everett to check status at [phone]. Spoke to staff and they advised is denied due to no documentation of trail/failure for other satin. Patient recently est with office so no records scanned in previously checked before submitting. Left vm for patient to call back will need old records faxed to our office so we can scan in [phone] showing intolerance to ALL statins. Will need name/phone number for pharmacy all past statin filled at to get dates. After all this info received and complete appeal Susanne Batista MA PA completed for pitavastatin and faxed to [facility]. Susanne Batista MA Rx sent for fenofibrate. Recheck labs in 3 months. Please initiate PA for pitavastatin. He has failed crestor in the past and several other statins per his report. Patient returned call and went over results, notes from Dr Faustin with understanding. Patient is willing to take the Fenofibrate rx, he uses [facility] for his pharmacy. Patient said the Pitavastatin rx needs to have a Prior authorization done on it. VM left for patient to return call to review provider's message. Jenae Jara LPN Total cholesterol and triglycerides very elevated since patient has been off of his pitavastatin. Recommend restarting as prescribed with recheck in 2-3 months. Would recommend adding on fenofibrate for triglycerides above 500 as he has increased risk for pancreatitis. Will call in rx if agreeable. HIV and hepatitis C screening negative. Other labs unremarkable. documented in this encounter [facility] 07-31-2024 Telephone encounter Note Called [facility] to check status at [phone]. Spoke to staff and they advised is denied due to no documentation of trail/failure for other satin. Patient recently est with office so no records scanned in previously checked before submitting. Left vm for patient to call back will need old records faxed to our office so we can scan in [phone] showing intolerance to ALL statins. Will need name/phone number for pharmacy all past statin filled at to get dates. After all this info received and complete appeal Susanne Batista MA [facility] 07-30-2024 Note HNO ID: [id number] Author: UENICE MATA APRN.[employer] Service: ? Author Type: Nurse Practitioner Type: Progress Notes Filed: 07/30/2024 11:24 Note Text: CC: Patient presents with: Sinus Problem: Sinus issues, cough, NERI, drainage, chest congestion x 2 weeks HPI: Cliff Solorzano is a 44 year old male who presents to the office with complaint of chest congestion, head congestion, cough, productive, and sinus symptoms for 2 weeks. Symptoms are worsening Associated symptoms includes facial pain/pressure and fatigue. Denies nausea, vomiting , and diarrhea. Treatments tried include nothing so far. with no relief of symptoms. Sick contacts: unknown. History of asthma, frequent episodes of bronchitis, chronic bronchitis, bronchiectasis or COPD: No Smoker: No Seasonal/environmental allergies: No The ROS is otherwise negative. The patient's pmh, medications, allergies, and past visits are reviewed. PHYSICAL EXAM: BP 114/80 Pulse 92 Temp 36.5 ?C (97.7 ?F) Resp 20 Wt 114.8 kg (253 lb 1.4 oz) SpO2 98% BMI 34.66 kg/m? General appearance: alert, cooperative, pleasant, in no acute distress Head: Normocephalic Eyes: EOM's intact, conjunctiva pink and moist, no icterus, sclera white, non-injected Ears: Right ear: External ear/canal- Normal, TM - erythematous. Left ear: External ear/canal- Normal, TM - erythematous Oropharynx:mild erythema, without exudates present, uvula midline Neck: mild cervical adenopathy Heart: Negative. RRR without obvious murmur, gallop, or rubs. No ectopy. Lungs: clear to auscultation, without rales or wheeze, good air exchange PAST MEDICAL HISTORY Diagnosis Date Anxiety and depression Chewing tobacco use GERD (gastroesophageal reflux disease) History of tobacco use Hyperlipidemia Obesity Tension headache PAST SURGICAL HISTORY Procedure Laterality Date COLONOSCOPY 2021 normal ALLERGIES Crestor [Rosuvastatin] MEDICATIONS fenofibrate nanocrystallized (TRICOR) 145 mg tablet Take 1 tablet by mouth once daily. pitavastatin (LIVALO) 4 mg tablet Take 1 tablet by mouth once daily. omeprazole (PRILOSEC) 20 mg capsule Take 1 capsule by mouth once daily. sertraline (ZOLOFT) 100 mg tablet Take 1 tablet by mouth once daily. (Patient taking differently: Take 50 mg by mouth once daily.) FAMILY HISTORY Problem Relation Age of Onset Hyperlipidemia Mother Lymphoma Maternal Grandfather Hypertension Maternal Grandfather Lymphoma Paternal Grandfather No Known Problems Son No Known Problems Daughter Social History Tobacco Use Smoking status: Former Current packs/day: 0.50 Average packs/day: 0.5 packs/day for 10.0 years (5.0 ttl pk-yrs) Types: Cigarettes Start date: 07/12/2014 Smokeless tobacco: Former Types: Chew Quit date: 05/2024 Tobacco comments: 1 can every other day for 10 years Vaping Use Vaping status: Never Used Substance Use Topics Alcohol use: Yes Comment: monthly Drug use: Never ASSESSMENT/PLAN: 1. Rhinosinusitis - ICD9: 473.9, ICD10: J32.9 - DOXYCYCLINE HYCLATE 100 MG TABLET Prescription instructions reviewed with patient as applicable. Potential red flag symptoms discussed with the patient. Reviewed appropriate action plan to take if red flag symptoms occur. Patient agreeable to treatment plan. Eunice Mata APRN.[facility] 07-30-2024 History of Present illness Narrative CC: Patient presents with: Sinus Problem: Sinus issues, cough, NERI, drainage, chest congestion x 2 weeks HPI: Cliff Solorzano is a 44 year old male who presents to the office with complaint of chest congestion, head congestion, cough, productive, and sinus symptoms for 2 weeks. Symptoms are worsening Associated symptoms includes facial pain/pressure and fatigue. Denies nausea, vomiting , and diarrhea. Treatments tried include nothing so far. with no relief of symptoms. Sick contacts: unknown. History of asthma, frequent episodes of bronchitis, chronic bronchitis, bronchiectasis or COPD: No Smoker: No Seasonal/environmental allergies: No The ROS is otherwise negative. The patient's pmh, medications, allergies, and past visits are reviewed. PHYSICAL EXAM: BP 114/80 Pulse 92 Temp 36.5 C (97.7 F) Resp 20 Wt 114.8 kg (253 lb 1.4 oz) SpO2 98% BMI 34.66 kg/m General appearance: alert, cooperative, pleasant, in no acute distress Head: Normocephalic Eyes: EOM's intact, conjunctiva pink and moist, no icterus, sclera white, non-injected Ears: Right ear: External ear/canal- Normal, TM - erythematous. Left ear: External ear/canal- Normal, TM - erythematous Oropharynx:mild erythema, without exudates present, uvula midline Neck: mild cervical adenopathy Heart: Negative. RRR without obvious murmur, gallop, or rubs. No ectopy. Lungs: clear to auscultation, without rales or wheeze, good air exchange PAST MEDICAL HISTORY Diagnosis Date Anxiety and depression Chewing tobacco use GERD (gastroesophageal reflux disease) History of tobacco use Hyperlipidemia Obesity Tension headache PAST SURGICAL HISTORY Procedure Laterality Date COLONOSCOPY 2021 normal ALLERGIES Crestor [Rosuvastatin] MEDICATIONS fenofibrate nanocrystallized (TRICOR) 145 mg tablet Take 1 tablet by mouth once daily. pitavastatin (LIVALO) 4 mg tablet Take 1 tablet by mouth once daily. omeprazole (PRILOSEC) 20 mg capsule Take 1 capsule by mouth once daily. sertraline (ZOLOFT) 100 mg tablet Take 1 tablet by mouth once daily. (Patient taking differently: Take 50 mg by mouth once daily.) FAMILY HISTORY Problem Relation Age of Onset Hyperlipidemia Mother Lymphoma Maternal Grandfather Hypertension Maternal Grandfather Lymphoma Paternal Grandfather No Known Problems Son No Known Problems Daughter Social History Tobacco Use Smoking status: Former Current packs/day: 0.50 Average packs/day: 0.5 packs/day for 10.0 years (5.0 ttl pk-yrs) Types: Cigarettes Start date: 07/12/2014 Smokeless tobacco: Former Types: Chew Quit date: 05/2024 Tobacco comments: 1 can every other day for 10 years Vaping Use Vaping status: Never Used Substance Use Topics Alcohol use: Yes Comment: monthly Drug use: Never ASSESSMENT/PLAN: 1. Rhinosinusitis - ICD9: 473.9, ICD10: J32.9 - DOXYCYCLINE HYCLATE 100 MG TABLET Prescription instructions reviewed with patient as applicable. Potential red flag symptoms discussed with the patient. Reviewed appropriate action plan to take if red flag symptoms occur. Patient agreeable to treatment plan. Eunice Mata APRN.[employer] documented in this encounter [facility] 07-25-2024 Telephone encounter Note Ambulatory Pharmacy Prior Authorization Note Provider Intervention Required?: Yes- [facility] requires prior authorization to be submitted by the provider. [facility] Form (Prescription Drug Formulary) Drug: Pitavastastin 4 mg Formulary Alternatives: other statins Additional Information: Please fax completed paperwork to [phone] or email to [email or web address]. [facility] cannot process prior authorizations sent via CoverMyMeds. For questions relating to this submission, please contact [facility] at [phone] [facility] 07-25-2024 Miscellaneous Notes Ambulatory Pharmacy Prior Authorization Note Provider Intervention Required?: Yes- [facility] requires prior authorization to be submitted by the provider. [facility] Form (Prescription Drug Formulary) Drug: Pitavastastin 4 mg Formulary Alternatives: other statins Additional Information: Please fax completed paperwork to [phone] or email to [email or web address] cannot process prior authorizations sent via CoverMyMeds. For questions relating to this submission, please contact [facility] at [phone] documented in this encounter [facility] 07-18-2024 Telephone encounter Note PA completed for pitavastatin and faxed to [facility]. Susanne Batista MA [facility] 07-14-2024 Telephone encounter Note Rx sent for fenofibrate. Recheck labs in 3 months. Please initiate PA for pitavastatin. He has failed crestor in the past and several other statins per his report. [facility] 07-13-2024 Telephone encounter Note Patient returned call and went over results, notes from Dr Faustin with understanding. Patient is willing to take the Fenofibrate rx, he uses [facility] for his pharmacy. Patient said the Pitavastatin rx needs to have a Prior authorization done on it. [facility] 07-13-2024 Telephone encounter Note left for patient to return call to review provider's message. Jenae Jara LPN [facility] 07-13-2024 Telephone encounter Note Total cholesterol and triglycerides very elevated since patient has been off of his pitavastatin. Recommend restarting as prescribed with recheck in 2-3 months. Would recommend adding on fenofibrate for triglycerides above 500 as he has increased risk for pancreatitis. Will call in rx if agreeable. HIV and hepatitis C screening negative. Other labs unremarkable. [facility] 07-12-2024 Note HNO ID: [id number] Author: SHIVA FAUSTIN MD Service: ? Author Type: Physician Type: Progress Notes Filed: 07/15/2024 09:41 Note Text: Chief Complaint Patient presents with: Establish Care HPI Cliff Solorzano is a 44 year old male who presents here today for establish care visit. Previous PCP Dusty Martinez with last OV about 6 months ago. Insurance changed so had to switch. Patient complaining today of frequent headaches located over his posterior neck with radiation around the top and sides of his head. Occurs almost daily. Can occur in morning or evening. Associated with nausea without vomiting. Denies vision changes, photophobia, phonophobia, aura head or neck injury. Treating with ibuprofen and lying down helps with pain. Requesting refill on Livalo for history of hyperlipidemia. Ran out about 1 month ago. Has failed other statins including Crestor. Doing well on current regimen. Patient taking 50 mg of zoloft daily for history of anxiety and depression which is working well. Diagnosed 10 years ago. Denies SI/HI, panic symptoms. Used to be on 100 mg daily and lowered dosage on his own. Has considered weaning off entirely. History of GERD controlled with prilosec 20 mg daily. Colonoscopy completed 2 years ago which was normal. Past medical history, appointments, medications, allergies reviewed. Previous Medical History PAST MEDICAL HISTORY Diagnosis Date Anxiety and depression Chewing tobacco use GERD (gastroesophageal reflux disease) History of tobacco use Hyperlipidemia Obesity Tension headache Previous Surgical History No past surgical history on file. Family History No family history on file. Patient Allergies ALLERGIES No Known Allergies Current Medications Current Outpatient Medications on File Prior to Visit Medication Sig sertraline (ZOLOFT) 100 mg tablet Take 1 tablet by mouth once daily. (Patient taking differently: Take 50 mg by mouth once daily.) omeprazole (PRILOSEC) 20 mg capsule Take 1 capsule by mouth once daily. pitavastatin (LIVALO) 4 mg tablet Take 1 tablet by mouth once daily. (Patient taking differently: Take 4 mg by mouth once daily. Patient reports he hasn't had medication for a couple months) No current facility-administered medications on file prior to visit. Social History Social History Tobacco Use Smoking status: Never Smokeless tobacco: Current Review of Symptoms REVIEW OF SYSTEMS GENERAL: No weight loss, malaise or fevers RESPIRATORY: Negative for cough, hemoptysis, wheezing, COPD, dyspnea or shortness of breath CARDIOVASCULAR: Negative for chest pain, leg swelling, hypertension, CHF or palpitations GI: No nausea, vomiting, or diarrhea SKIN: Negative for lesions, rash, and itching EXAM: BP 118/80 Pulse 72 Ht 182 cm (5' 11.65) Wt 115.2 kg (254 lb) SpO2 98% BMI 34.78 kg/m? General Appearance: Well appearing, alert, in no acute distress, well-hydrated, well nourished.. Skin: Skin color, texture, turgor normal, no suspicious rashes or lesions. Neck: normal ROM without TTP over cervical spine or paraspinal muscles. Mild pain with ROM. Head: normocephalic, atraumatic. Lungs: Lungs clear to auscultation. No wheezing, rhonchi, rales.. Heart: RRR without murmur, gallop, or rubs. No ectopy. Abdomen: Normal abdominal exam, Abdomen soft, non-tender. Bowel sounds normal. No masses, organomegaly. Extremities: No deformities, edema, skin discoloration, clubbing or cyanosis. Good capillary refill. Health Maintenance List Depression Screening Never done Anxiety Screening Never done Hepatitis C Screening Never done HIV Screening Never done Hepatitis B Vaccine(1 of 3 - 19+ 3-dose series) Never done Lipid Screening Never done Influenza Vaccine(1) due on 05/21/2024 Covid-19 Vaccine(2023- season) due on 05/21/2024 DTaP,Tdap,Td Vaccine(2 - Td or Tdap) due on 04/17/2025 HPV Vaccine Aged Out ASSESSMENT/PLAN: 1. Encounter for medical examination to establish care - ICD9: V70.9, ICD10: Z00.00 (primary diagnosis) - Counseled on healthy diet and regular exercise - Discussed need for and benefit of weight loss. BMI 34.78 kg/(m2) - Counseled on limiting alcohol intake to 2 drinks per day - Follow up for annual exam in one year - COMPLETE BLOOD COUNT AND DIFFERENTIAL - COMPREHENSIVE METABOLIC PANEL - THYROID STIMULATING HORMONE - HEMOGLOBIN A1C 2. Class 1 obesity without serious comorbidity with body mass index (BMI) of 34.0 to 34.9 in adult, unspecified obesity type - ICD9: 278.00, V85.34, ICD10: E66.811, Z68.34 Stable - Behavioral intervention 3. Tension headaches - ICD9: 307.81, ICD10: G44.209 Discussed switching from ibuprofen to Aleve PRN. Discussed ice/heat, home exercises, stress relieving activities, setting up computer at work station to help prevent neck strain. 4. Hyperlipidemia, unspecified hyperlipidemia type - ICD9: 272.4, ICD10: E78.5 - Co (more content not included)... [facility] 07-12-2024 History of Present illness Narrative Chief Complaint Patient presents with: [facility] HPI Cliff Solorzano is a 44 year old male who presents here today for [facility]. Previous PCP Dusty Martinez with last OV about 6 months ago. Insurance changed so had to switch. Patient complaining today of frequent headaches located over his posterior neck with radiation around the top and sides of his head. Occurs almost daily. Can occur in morning or evening. Associated with nausea without vomiting. Denies vision changes, photophobia, phonophobia, aura head or neck injury. Treating with ibuprofen and lying down helps with pain. Requesting refill on Livalo for history of hyperlipidemia. Ran out about 1 month ago. Has failed other statins including Crestor. Doing well on current regimen. Patient taking 50 mg of zoloft daily for history of anxiety and depression which is working well. Diagnosed 10 years ago. Denies SI/HI, panic symptoms. Used to be on 100 mg daily and lowered dosage on his own. Has considered weaning off entirely. History of GERD controlled with prilosec 20 mg daily. Colonoscopy completed 2 years ago which was normal. Past medical history, appointments, medications, allergies reviewed. Previous Medical History PAST MEDICAL HISTORY Diagnosis Date Anxiety and depression Chewing tobacco use GERD (gastroesophageal reflux disease) History of tobacco use Hyperlipidemia Obesity Tension headache Previous Surgical History No past surgical history on file. Family History No family history on file. Patient Allergies ALLERGIES No Known Allergies Current Medications Current Outpatient Medications on File Prior to Visit Medication Sig sertraline (ZOLOFT) 100 mg tablet Take 1 tablet by mouth once daily. (Patient taking differently: Take 50 mg by mouth once daily.) omeprazole (PRILOSEC) 20 mg capsule Take 1 capsule by mouth once daily. pitavastatin (LIVALO) 4 mg tablet Take 1 tablet by mouth once daily. (Patient taking differently: Take 4 mg by mouth once daily. Patient reports he hasn't had medication for a couple months) No current facility-administered medications on file prior to visit. Social History Social History Tobacco Use Smoking status: Never Smokeless tobacco: Current Review of Symptoms REVIEW OF SYSTEMS GENERAL: No weight loss, malaise or fevers RESPIRATORY: Negative for cough, hemoptysis, wheezing, COPD, dyspnea or shortness of breath CARDIOVASCULAR: Negative for chest pain, leg swelling, hypertension, CHF or palpitations GI: No nausea, vomiting, or diarrhea SKIN: Negative for lesions, rash, and itching EXAM: BP 118/80 Pulse 72 Ht 182 cm (5' 11.65) Wt 115.2 kg (254 lb) SpO2 98% BMI 34.78 kg/m General Appearance: Well appearing, alert, in no acute distress, well-hydrated, well nourished.. Skin: Skin color, texture, turgor normal, no suspicious rashes or lesions. Neck: normal ROM without TTP over cervical spine or paraspinal muscles. Mild pain with ROM. Head: normocephalic, atraumatic. Lungs: Lungs clear to auscultation. No wheezing, rhonchi, rales.. Heart: RRR without murmur, gallop, or rubs. No ectopy. Abdomen: Normal abdominal exam, Abdomen soft, non-tender. Bowel sounds normal. No masses, organomegaly. Extremities: No deformities, edema, skin discoloration, clubbing or cyanosis. Good capillary refill. Health Maintenance List Depression Screening Never done Anxiety Screening Never done Hepatitis C Screening Never done HIV Screening Never done Hepatitis B Vaccine(1 of 3 - 19+ 3-dose series) Never done Lipid Screening Never done Influenza Vaccine(1) due on 05/21/2024 Covid-19 Vaccine(2023- season) due on 05/21/2024 DTaP,Tdap,Td Vaccine(2 - Td or Tdap) due on 04/17/2025 HPV Vaccine Aged Out ASSESSMENT/PLAN: 1. Encounter for medical examination to establish care - ICD9: V70.9, ICD10: Z00.00 (primary diagnosis) - Counseled on healthy diet and regular exercise - Discussed need for and benefit of weight loss. BMI 34.78 kg/(m^2) - Counseled on limiting alcohol intake to 2 drinks per day - Follow up for annual exam in one year - COMPLETE BLOOD COUNT AND DIFFERENTIAL - COMPREHENSIVE METABOLIC PANEL - THYROID STIMULATING HORMONE - HEMOGLOBIN A1C 2. Class 1 obesity without serious comorbidity with body mass index (BMI) of 34.0 to 34.9 in adult, unspecified obesity type - ICD9: 278.00, V85.34, ICD10: E66.811, Z68.34 Stable - Behavioral intervention 3. Tension headaches - ICD9: 307.81, ICD10: G44.209 Discussed switching from ibuprofen to Aleve PRN. Discussed ice/heat, home exercises, stress relieving activities, setting up computer at work station to help prevent neck strain. 4. Hyperlipidemia, unspecified hyperlipidemia type - ICD9: 272.4, ICD10: E78.5 - Control undetermined, due for labs - Continue current medications - Counseled on healthy diet and regular exercise - LIPID PANEL BASIC 5. Special screening examination for viral disease - ICD9: V73.99, ICD10: Z11.59 - HEPATITIS C ANTIBODY IA WITH CONFIRMATION 6. Screening for HIV (human immunodeficiency virus) - ICD9: V73.89, ICD10: Z11.4 - HIV 1/2 COMBO WITH REFLEX TO DIFFERENTIATION 7. Encounter for immunization - ICD9: V03.89, ICD10: Z23 - INFLUENZA VACCINE, AGE 6MO-64YR, TRIVALENT (AFLURIA, FLULAVAL, FLUVIRIN, FLUZONE) - [employer] COVID-19 VACCINE AGE 12+ YR (COMIRNATY) Shiva Faustin MD documented in this encounter [facility] 05-23-2024 Instructions Marian Flores APRN.[facility] - 05/23/2024 10:44 AM EDT [facility] PATIENT INFO CONTACT DERMATITIS OVERVIEW Dermatitis is defined as an inflammation of the skin. Contact dermatitis refers to dermatitis that is caused by contact between the skin and a substance. The substance can be an allergen (a substance that provokes an allergic reaction) or an irritant (a substance that damages the skin). Irritants are responsible for about 80 percent of cases of contact dermatitis. In most cases, self-care measures and drug therapy can control the symptoms and prevent complications of contact dermatitis. IRRITANT CONTACT DERMATITIS Irritant contact dermatitis occurs when the skin comes in direct contact with a substance that physically, mechanically, or chemically irritates the skin, causing the normal skin barrier to be disrupted. Cause -- The most common causes of irritant dermatitis are products used on a daily basis, including soap, cleansers, and rubbing alcohol. People with other skin conditions, dry skin, and light-colored or fair skin are at greatest risk, although anyone can develop irritant dermatitis. Symptoms -- Mild irritants cause redness, dryness, fissures (small cracks), and itching. Strong irritants may cause swelling, oozing, tenderness, or blisters. The hands are commonly affected, often between the fingers. Irritant dermatitis can also affect the face, especially the thin skin of the eyelids. Diagnosis -- The diagnosis of irritant contact dermatitis is usually based upon a person's history and physical examination. In some cases, a patch test (applying a small amount of a substance to the skin) may be recommended to determine if the dermatitis is allergic or irritant-type. Patch testing should be done by a machine cloth examiner or machine printer hose who is trained in this procedure. Treatment -- The goal of treatment of irritant contact dermatitis is to restore the normal skin barrier and protect the skin from future injury. Reducing exposure to known irritants is essential. In some cases, simply reducing the use of soap and using an emollient cream or ointment completely alleviates symptoms. Wearing gloves when working with irritants may help as well. In more severe cases, topical corticosteroids (steroids) may be recommended. Steroid creams and ointments are available in a variety of strengths (potencies); the least potent are available in the [place] without a prescription (eg, hydrocortisone 1 percent cream). More potent formulations require a prescription. Steroid treatments for contact dermatitis are most effective when applied and covered with a barrier, such as plastic wrap, a dressing (eg, Telfa), cotton gloves, or petroleum jelly. Oral steroids (eg, prednisone) may be used briefly to treat severe dermatitis, but are not recommended for long-term treatment of irritant contact dermatitis. ALLERGIC CONTACT DERMATITIS Allergic contact dermatitis occurs when the skin comes in direct contact with an allergen. This activates the body's immune system, which triggers inflammation. Allergic contact dermatitis can occur after being exposed to a new product or after using a product for months or years. Common allergens -- Poison karla, poison oak, and poison sumac contain an oil called urushiol, which is the most common cause of allergic contact dermatitis. Ginkgo fruit and the skin of mangos also contain urushiol and can cause allergic contact dermatitis. Other common allergens include nickel in jewelry, perfumes and cosmetics, components of rubber, nail taiwanese, and chemicals in shoes (both leather and synthetic). Allergic contact dermatitis can also be triggered by certain medications, including hydrocortisone cream, antibiotic creams (eg, Neosporin , Bacitracin ), benzocaine, and thimerosal. Laundry detergents are an uncommon cause of allergic contact dermatitis. Symptoms -- Symptoms include intense itching and a red raised rash. The rash is usually limited to areas that were in direct contact with the allergen, but a rash can appear in other areas of the body, if the allergen was transferred to those areas on a person's hands. Washing the allergen away with soap and water can usually prevent this spread. The rash typically appears within 12 to 48 hours of exposure to the allergen, although in some cases it may not appear for up to two weeks. Less commonly, the rash persists for months or years, which makes it difficult to identify the cause of the reaction. Diagnosis -- The diagnosis of allergic contact dermatitis is based upon a person's history and physical examination. If symptoms improve after the allergen is eliminated, this supports the diagnosis. Patch testing may be recommended in some cases and is usually performed by a machine cloth examiner or machine printer hose. Treatment -- Allergic contact dermatitis usually resolves within two to four weeks after the allergen is eliminated, although it can take more time in some cases. Several measures can minimize symptoms during this time and help to control symptoms in people who have chronic allergic contact dermatitis. Whenever possible, identify and stop all exposure to the allergen. Oatmeal baths or soothing lotions such as calamine lotion can provide relief in mild cases. Topical antihistamines (eg, Benadryl cream) may be effective in some people. Topical corticosteroids (steroids) may be recommended for people with mild to moderate symptoms. Steroid creams and ointments are available in a variety of strengths (potencies); the least potent are available in the [place] without a prescription (eg, hydrocortisone 1 percent cream). More potent formulations require a prescription. For people with more bothersome symptoms, wet or damp dressings are recommended, especially when the affected area is oozing fluid and crusting. Such dressings are soothing and relieve itching, reduce redness, gently remove crusts, and prevent additional injury from scratching. A damp cotton garment (the garment is soaked with water and then wrung out) is worn over the affected area and covered with a dry garment. As an example, for an adult with allergic contact dermatitis of the legs, wet long underwear can be covered with larger dry long underwear. Adults may prefer to apply wet dressings at night. When used during the day, wet dressings should be changed every eight hours. Infants and toddlers with extensive skin involvement can wear wet pajamas covered by a dry pair of pajamas or a sleep sack. In people with severe dermatitis, a short course of oral steroids (eg, prednisone) may be recommended to get symptoms under control. LATEX DERMATITIS Latex is a fluid produced by rubber trees that is processed into a variety of products, including gloves, balloons, and condoms. In some individuals, exposure to these products and others (such as rubber bands, erasers, feeding nipples, pacifiers) can cause a contact dermatitis that is either an irritant or allergic reaction. Less commonly, a person can develop a potentially life-threatening allergic reaction to latex. Irritant dermatitis -- Irritant dermatitis usually occurs on the hands of people who wear latex or other rubber gloves; the latex acts as an irritant and the gloves trap moisture against the skin. The skin dries out when the gloves are removed, leading to the dermatitis. The symptoms of irritant rubber or latex dermatitis include redness and itching on the skin. There may also be dryness and cracking. Symptoms usually occur within 12 to 36 hours of touching a latex product. Treatment involves avoiding use of any latex-containing products. Latex allergy -- Latex can trigger allergic contact dermatitis. The skin reaction caused by a latex allergy does not differ significantly from that of irritant latex dermatitis. Other manifestations of latex allergy include urticaria (hives) immediately after contact with latex at the site of contact and a severe allergic reaction, which causes swelling, sneezing, and wheezing. Rarely, anaphylaxis can occur, which causes life-threatening difficulty with breathing. Diagnosis -- In most cases, the diagnosis of latex allergy is based upon a person's history of exposure. People with a severe latex allergy may immediately develop hives, nasal symptoms, swelling, or wheezing after latex exposure. These individuals may need to see a machine cloth examiner or machine printer hose for specialized skin patch tests and blood testing to verify the latex allergy. Treatment -- The primary treatment for latex allergy is to avoid all latex-containing products. Non-latex examination gloves are widely available, and use of glove liners may also be an effective approach. Natural membrane (sometimes called sheep skin) condoms may be used in place of latex condoms, and are effective for preventing . However, natural membrane condoms do not protect against sexually transmitted diseases such as HIV, gonorrhea, and chlamydia. People with a serious latex allergy should wear a bracelet, necklace, or similar alert tag at all times. If a reaction occurs and the person is too ill to explain their condition, this will help responders provide the proper care as quickly as possible. This measure is especially important in children. The alert tag should include a list of known allergies, as well as the name and phone number of an emergency contact. People with a latex allergy should inform their doctors, dentists, and other healthcare providers about their allergy. Some patients are advised to carry an anaphylaxis kit (containing epinephrine that can be injected under the skin) as a precautionary measure. documented in this encounter [facility] 05-23-2024 Note HNO ID: [id number] Author: MARIAN FLORES APRN.DIANNE Service: ? Author Type: Nurse Practitioner Type: Progress Notes Filed: 05/23/2024 10:49 Note Text: This note was created using [employer]. Subjective Cliff Solorzano is a 43 year old male. Patient presents with rash all over body for 1 week Patient was pulling weeds in flower beds and there was poison karla Tried OTC allergic medications without relief Review of Systems Constitutional: Negative for chills and fever. Objective BP 136/84 Pulse 90 Temp 36.4 ?C (97.6 ?F) (Tympanic) Resp 16 Wt 116.1 kg (255 lb 15.3 oz) SpO2 99% Physical Exam Constitutional: General: He is not in acute distress. Appearance: Normal appearance. He is not toxic-appearing. Skin: Findings: Rash present. Neurological: Mental Status: He is alert. Assessment and Plan ASSESSMENT/PLAN: 1. Poison karla dermatitis - ICD9: 692.6, ICD10: L23.7 - Oral Steriod tx -Medrol dose pack - discussed skin care of rash - follow up if symptoms persist or worsen. - METHYLPREDNISOLONE 4 MG TABLETS IN A DOSE PACK Marian Flores APRN.[employer] [facility] 05-23-2024 History of Present illness Narrative Images from the original note were not included. This note was created using [employer]. Subjective Cliff Solorzano is a 43 year old male. Patient presents with rash all over body for 1 week Patient was pulling weeds in flower beds and there was poison karla Tried OTC allergic medications without relief Review of Systems Constitutional: Negative for chills and fever. Objective BP 136/84 Pulse 90 Temp 36.4 C (97.6 F) (Tympanic) Resp 16 Wt 116.1 kg (255 lb 15.3 oz) SpO2 99% Physical Exam Constitutional: General: He is not in acute distress. Appearance: Normal appearance. He is not toxic-appearing. Skin: Findings: Rash present. Neurological: Mental Status: He is alert. Assessment and Plan ASSESSMENT/PLAN: 1. Poison karla dermatitis - ICD9: 692.6, ICD10: L23.7 - Oral Steriod tx -Medrol dose pack - discussed skin care of rash - follow up if symptoms persist or worsen. - METHYLPREDNISOLONE 4 MG TABLETS IN A DOSE PACK Marian Flores APRN.DIANNE documented in this encounter [facility] 05-09-2024 Telephone encounter Note Left message for patient with negative results.Simran Lugo LPN [facility] 05-09-2024 Miscellaneous Notes Left message for patient with negative results.Simran Lugo LPN Please let patient know he is negative for COVID flu and RSV documented in this encounter [facility] 05-09-2024 Telephone encounter Note Please let patient know he is negative for COVID flu and RSV [facility] Work Phone: 05-09-2024 Instructions Rylee Kimbrough PA - 05/09/2024 7:41 AM EDT Rest, increase water intake Motrin or Tylenol as needed for fever or pain. Salt water gargles, chloraseptic spray or lozenges as needed for sore throat. Warm beverages, honey. Nasal saline spray as needed Cool mist humidifier at night A cold normally lasts 7-10 days. If your symptoms are lasting longer, develop fever, or worsening by that time instead of improving then return to clinic or follow up with PCP for re-evaluation. Tylenol (generic acetaminophen) 500 mg-2 tabs every 8 hrs. as needed for fever and aches Ibuprofen 600 mg (3-200mg tablets) every 6 hours -Mucinex (generic is fine) Guaifenesin 1200 mg twice daily to help with cough and to thin out mucus documented in this encounter [facility] 05-09-2024 Note HNO ID: [id number] Author: RYLEE KIMBROUGH PA Service: ? Author Type: Physician Sanitarian Inspector Type: Progress Notes Filed: 05/09/2024 07:45 Note Text: This note was created using [employer]. Subjective Cliff Solorzano is a 43 year old male. HPI 43-year-old male presents for sore throat, cough, congestion x 1 day. Patient states yesterday he started getting sore throat. He has had mild cough, congestion, headache, chills and bodyaches. He denies any fevers, but has felt feverish. No chest pain or shortness of breath. He has had COVID in the past and states this feels similar. He states several people at his work have tested positive for COVID. No sick contacts at home. Patient has taken Motrin with improvement in his headache. History reviewed. No pertinent past medical history. No past surgical history on file. ALLERGIES Patient has no known allergies. MEDICATIONS sertraline (ZOLOFT) 100 mg tablet Take 1 tablet by mouth once daily. omeprazole (PRILOSEC) 20 mg capsule Take 1 capsule by mouth once daily. pitavastatin (LIVALO) 4 mg tablet Take 1 tablet by mouth once daily. No family history on file. Social History Tobacco Use Smoking status: Never Smokeless tobacco: Current Review of Systems Constitutional: Positive for chills and fever. HENT: Positive for congestion and sore throat. Respiratory: Positive for cough. Negative for shortness of breath. Gastrointestinal: Negative for diarrhea and vomiting. Neurological: Positive for headaches. Objective BP 110/82 Pulse 89 Temp 36.7 ?C (98 ?F) (Tympanic) Resp 16 Wt 114.9 kg (253 lb 4.9 oz) SpO2 97% Physical Exam Vitals and nursing note reviewed. Constitutional: General: He is not in acute distress. Appearance: Normal appearance. He is not toxic-appearing. HENT: Right Ear: Tympanic membrane and ear canal normal. Left Ear: Tympanic membrane and ear canal normal. Nose: Nose normal. Mouth/Throat: Mouth: Mucous membranes are moist. Pharynx: Oropharynx is clear. Uvula midline. Posterior oropharyngeal erythema present. Tonsils: No tonsillar exudate or tonsillar abscesses. Eyes: Conjunctiva/sclera: Conjunctivae normal. Cardiovascular: Rate and Rhythm: Normal rate and regular rhythm. Pulmonary: Effort: Pulmonary effort is normal. Breath sounds: Normal breath sounds. No wheezing, rhonchi or rales. Skin: General: Skin is warm and dry. Neurological: Mental Status: He is alert. Assessment and Plan ASSESSMENT/PLAN: 1. URI, acute - ICD9: 465.9, ICD10: J06.9 (primary diagnosis) - Discussed viral etiology and rationale for treatment. - Symptomatic treatment with prn analgesia - Supportive care with fluids and rest - The patient may also use warm salt water gargles, throat lozenges and/or OTC throat spray as needed. - COVID AND INFLUENZA A/B AND RSV NAAT, ROUTINE -Declines antiviral. 2. Sore throat - ICD9: 462, ICD10: J02.9 - suspect viral - Group A strep molecular testing negative - Discussed supportive care treatment with fluids, rest and analgesia. - STREP A MOLECULAR (POC) Diagnosis and treatment plan were discussed and questions were answered to the patient's satisfaction. Pt acknowledged understanding of concepts and follow up plan. Specific signs and symptoms that would indicate the need for higher level of care were discussed in detail warranting prompt ER evaluation. JOYCE Luo [facility] 05-09-2024 History of Present illness Narrative This note was created using WigWag[employer]. Subjective Cliff Solorzano is a 43 year old male. HPI 43-year-old male presents for sore throat, cough, congestion x 1 day. Patient states yesterday he started getting sore throat. He has had mild cough, congestion, headache, chills and bodyaches. He denies any fevers, but has felt feverish. No chest pain or shortness of breath. He has had COVID in the past and states this feels similar. He states several people at his work have tested positive for COVID. No sick contacts at home. Patient has taken Motrin with improvement in his headache. History reviewed. No pertinent past medical history. No past surgical history on file. ALLERGIES Patient has no known allergies. MEDICATIONS sertraline (ZOLOFT) 100 mg tablet Take 1 tablet by mouth once daily. omeprazole (PRILOSEC) 20 mg capsule Take 1 capsule by mouth once daily. pitavastatin (LIVALO) 4 mg tablet Take 1 tablet by mouth once daily. No family history on file. Social History Tobacco Use Smoking status: Never Smokeless tobacco: Current Review of Systems Constitutional: Positive for chills and fever. HENT: Positive for congestion and sore throat. Respiratory: Positive for cough. Negative for shortness of breath. Gastrointestinal: Negative for diarrhea and vomiting. Neurological: Positive for headaches. Objective BP 110/82 Pulse 89 Temp 36.7 C (98 F) (Tympanic) Resp 16 Wt 114.9 kg (253 lb 4.9 oz) SpO2 97% Physical Exam Vitals and nursing note reviewed. Constitutional: General: He is not in acute distress. Appearance: Normal appearance. He is not toxic-appearing. HENT: Right Ear: Tympanic membrane and ear canal normal. Left Ear: Tympanic membrane and ear canal normal. Nose: Nose normal. Mouth/Throat: Mouth: Mucous membranes are moist. Pharynx: Oropharynx is clear. Uvula midline. Posterior oropharyngeal erythema present. Tonsils: No tonsillar exudate or tonsillar abscesses. Eyes: Conjunctiva/sclera: Conjunctivae normal. Cardiovascular: Rate and Rhythm: Normal rate and regular rhythm. Pulmonary: Effort: Pulmonary effort is normal. Breath sounds: Normal breath sounds. No wheezing, rhonchi or rales. Skin: General: Skin is warm and dry. Neurological: Mental Status: He is alert. Assessment and Plan ASSESSMENT/PLAN: 1. URI, acute - ICD9: 465.9, ICD10: J06.9 (primary diagnosis) - Discussed viral etiology and rationale for treatment. - Symptomatic treatment with prn analgesia - Supportive care with fluids and rest - The patient may also use warm salt water gargles, throat lozenges and/or OTC throat spray as needed. - COVID & INFLUENZA A/B & RSV NAAT, ROUTINE -Declines antiviral. 2. Sore throat - ICD9: 462, ICD10: J02.9 - suspect viral - Group A strep molecular testing negative - Discussed supportive care treatment with fluids, rest and analgesia. - STREP A MOLECULAR (POC) Diagnosis and treatment plan were discussed and questions were answered to the patient's satisfaction. Pt acknowledged understanding of concepts and follow up plan. Specific signs and symptoms that would indicate the need for higher level of care were discussed in detail warranting prompt ER evaluation. JOYCE Luo documented in this encounter [facility] Evaluation note No assessment inform ation available [facility] Work Phone: Evaluation note Diagnosis URI, acute- Primary Acute upper respiratory infections of unspecified site Sore throat Acute pharyngitis [facility] Diagnosis Poison karla dermatitis- Primary Contact dermatitis and other eczema due to plants (except food) [facility]* Diagnosis Encounter for medical examination to establish care- Primary Class 1 obesity without serious comorbidity with body mass index (BMI) of 34.0 to 34.9 in adult, unspecified obesity type Tension headaches Hyperlipidemia, unspecified hyperlipidemia type Special screening examination for viral disease Special screening examination for unspecified viral disease Screening for HIV (human immunodeficiency virus) Special screening examination for other specified viral diseases Encounter for immunization Need for other specified prophylactic vaccination against single bacterial disease documented in this encounter [facility] note* Diagnosis Rhinosinusitis- Primary Unspecified sinusitis (chronic) documented in this encounter [facility] note* Diagnosis Hyperlipidemia, unspecified hyperlipidemia type- Primary documented in this encounter [facility] note* Diagnosis Hyperlipidemia, unspecified hyperlipidemia type- Primary documented in this encounter [facility] note* Diagnosis Gastroesophageal reflux disease, unspecified whether esophagitis present- Primary Muscle spasms of neck Spasm of muscle Persistent cough for 3 weeks or longer Past history of chewing tobacco use Personal history of tobacco use, presenting hazards to health documented in this encounter [facility] note* Diagnosis Adverse effect of drug, initial encounter- Primary Gastroesophageal reflux disease, unspecified whether esophagitis present documented in this encounter [facility] Advance Directives No Advanced Directives Records Found Advance Directive Response Recorded Date/ Time Living Will No August 29 9:53am Power of Enterprise Application Architect No August 29, 2020 9:53am Chief Complaint and Reason for Visit Chief Complaint EAR PAIN, CONGESTION Summary Purpose Family History No Family History Records FoundNo Family History Records FoundNo Family History Records Found Reason for Referral Specialty Diagnoses / Procedures Referred By Lexy patel Referred To Contact Shiva Faustin MD [address] [place] [address] Referral ID Status Reason Start Date Expiration Date Visits Re quested Visits Authorized [id number] Closed 1 1 Specialty Diagnoses / Procedures Referred By Lexy patel Referred To Contact General Surgery Diagnoses Gastroesophageal reflux disease, unspecified whether esophagitis present Procedures CONSULT TO GENERAL SURGERY OFFICE/OUTPATIENT [facility] 60 MINUTES Shiva Faustin MD [address] [place] [address] Referral ID Status Reason Start Date Expiration Date Visits Requested Visits Authorized [id number] Authorized PCP Requested Referral 10/20/2024 10/20/2025 1 1 Additional Source Comments Goals (unrecognized section and content) Goals may be documented in a n alternate sectionGoals may be documented in an alternate sectionGoals may be documented in an alternate section Care Teams (unrecognized sec tion and content) Team Status: Active Member Role Status Dates Dr. Dusty Martinez MD Family Provider Active Dr. Dusty Martinez MD Primary Care Provider Active Team Status: Inactive Member Role Status Dates Dr. Dusty Martinez MD Primary Care Provider Active Lien Cabrera MD Attending Provider, Referring Provide r Active Team Status: Inactive Member Role Status Dates Dr. Dusty Martinez MD Primary Care Provider, Referring Provider Active Jeff Casarez PA, PA Attending Provider Active Team Status: Inactive Member Role Status Dates Dr. Dusty Martinez MD Primary Care Provider Active Lien Cabrera MD Attending Provider Active Director Stars Relationship Specialty Start Date End Date Shiva Faustin MD [address] [place], [place] [address] PCP - General Family Medicine 07/12/24 Director Stars Relationship Specialty Start Date End Date Shiva Faustin MD [address] [place], [place] [id number] PCP - General Family Medicine 07/12/24 Director Stars Relationship Specialty Start Date End Date Shiva Faustin MD [address] [place], [place] [id number] PCP - General Family Medicine 07/12/24 Director Stars Relationship Specialty Start Date End Date Shiva Faustin MD [address] [place], [place] [id number] PCP - General Family Medicine 07/12/24 Director Stars Relationship Specialty Start Date End Date Shiva Faustin MD [address] [facility] [place] [address] PCP - General Family Medicine 07/12/24 Podlogar, SALVADOR GuerreroN.BUNDLE WRAPPER [address] [place] [address] Angle Roll Operator Family Medicine 08/26/24 Director Stars Relationship Specialty Start Date End Date Shiva Faustin MD [address] [place] [address] PCP - General Family Medicine 07/12/24 Podlogar, MARLA Guerrero.BUNDLE WRAPPER [address] [place] [address] Angle Roll Operator Family Medicine 08/26/24 Director Stars Relationship Specialty Start Date End Date Shiva Faustin MD [address] [place] [address] PCP - General Family Medicine 07/12/24 Podlogar, Yolanda TEST DESK SUPERVISOR.BUNDLE WRAPPER [address] [place] [address] Angle Roll Operator Family [facility] 08/26/24 Director Stars Relationship Specialty Start Date End Date Shiav Faustin MD [address] [place] [address] PCP - General Family Medicine 07/12/24 Podlogar, Yolanda, TEST DESK SUPERVISOR.BUNDLE WRAPPER [address] [place] [address] [facility] 08/26/24 Lani Shukla, MARLA.BUNDLE WRAPPER [address] [place], [place] [id number] [facility] 12/11/24 Director Stars Relationship Specialty Start Date End Date Shiva Faustin MD [address] [place], [place] [address] PCP - General Family Medicine 07/12/24 AdriennelogYolanda baez APRN.BUNDLE WRAPPER [address] [place], [place] [id number] [facility] 08/26/24 Lani Shukla, MARLA.BUNDLE WRAPPER [address] [place] [address] [facility] 12/11/24 (unrecognized sect ion and content) No Status Records FoundNo Status Records FoundNo Status Records Found INFORMATION SOURCE (unrecogn ized section and content) DATE CREATED AUTHOR 12/17/2023 [facility] DATE CREATED AUTHOR AUTHOR'S ORGANIZ ATION 07/29/2024 [facility] DATE CREATED AUTHOR AUTHOR'S ORGANIZ ATION 01/03/[address] [facility] Source Comments (unrecognize d section and content) In the event this informatio n is protected by the Federal Confidentiality of Alcohol and Drug Abuse Patient Records regulations: The Federal rules restrict any use of the information to criminally investigate or prosecute any alcohol or drug abuse patient.[facility] the event this information is protected by the Federal Confidentiality of Alcohol and Drug Abuse Patient Records regulations: The Federal rules restrict any use of the information to criminally investigate or prosecute any alcohol or drug abuse patient.[facility] the event this information is protected by the Federal Confidentiality of Alcohol and Drug Abuse Patient Records regulations: The Federal rules restrict any use of the information to criminally investigate or prosecute any alcohol or drug abuse patient.[facility] the event this information is protected by the Federal Confidentiality of Alcohol and Drug Abuse Patient Records regulations: The Federal rules restrict any use of the information to criminally investigate or prosecute any alcohol or drug abuse patient.[facility] the event this information is protected by the Federal Confidentiality of Alcohol and Drug Abuse Patient Records regulations: The Federal rules restrict any use of the information to criminally investigate or prosecute any alcohol or drug abuse patient.[facility] the event this information is protected by the Federal Confidentiality of Alcohol and Drug Abuse Patient Records regulations: The Federal rules restrict any use of the information to criminally investigate or prosecute any alcohol or drug abuse patient.[facility] the event this information is protected by the Federal Confidentiality of Alcohol and Drug Abuse Patient Records regulations: The Federal rules restrict any use of the information to criminally investigate or prosecute any alcohol or drug abuse patient.[facility] the event this information is protected by the Federal Confidentiality of Alcohol and Drug Abuse Patient Records regulations: The Federal rules restrict any use of the information to criminally investigate or prosecute any alcohol or drug abuse patient.[facility] the event this information is protected by the Federal Confidentiality of Alcohol and Drug Abuse Patient Records regulations: The Federal rules restrict any use of the information to criminally investigate or prosecute any alcohol or drug abuse patient.[facility] the event this information is protected by the Federal Confidentiality of Alcohol and Drug Abuse Patient Records regulations: The Federal rules restrict any use of the information to criminally investigate or prosecute any alcohol or drug abuse patient.[facility] the event this information is protected by the Federal Confidentiality of Alcohol and Drug Abuse Patient Records regulations: The Federal rules restrict any use of the information to criminally investigate or prosecute any alcohol or drug abuse patient.[facility] the event this information is protected by the Federal Confidentiality of Alcohol and Drug Abuse Patient Records regulations: The Federal rules restrict any use of the information to criminally investigate or prosecute any alcohol or drug abuse patient.[facility] Reason for Visit (unrecogniz ed section and content) Reason Comments Cough Cough, fever, ST , H A, bodyaches and chills x 1 day Reason Comments Results Reason Comments poison karla All over x 1 week Reason Comments Establish Care Reason Comments Medication Update Prior authorization Reason Comments Sinus Problem Sinus issues, cough, NERI, drainage, chest congestion x 2 weeks Reason Comments Medication Request Reason Comments Same Day Appointment throat issues- feel s heart beat in throat and cough x 2 months Reason Comments mood swings has been off Zoloft for about 1 month and today noted to be very irritable and feeling panic Reason Onset Date Comments Results 01/02/2025 FOR RECORDS PERTAINING TO PATIENTS WHO ARE OR HAVE BEEN ENROLLED IN A CHEMICAL DEPENDENCY/SUBSTANCEABUSE PROGRAM, SOME INFORMATION MAY BE OMITTED. This clinical summary was aggregated from multiple sources. Caution should be exercised in using it in the provision of clinical care. This summary normalizes information from multiple sources, and as a consequence, information in this document may materially change the coding, format and clinical context of patient data. In addition, data may be omitted in some cases. CLINICAL DECISIONS SHOULD BE BASED ON THE PRIMARY CLINICAL RECORDS. [employer] provides no warranty or guarantee of the accuracy or completeness of information in this document.
[2025-06-10 10:52] LABS: AST(SGOT) 40 U/L (<=37); Alanine Aminotransfer ALT/SGPT 62 U/L (<=46); Albumin, Serum 4.3 g/dL (3.5-5.0); Alkaline Phosphatase 128 U/L (40-129); Anion Gap 15 (5-15); BUN 16 mg/dL (4-19); BUN/Creat Ratio 15.8 RATIO (10-20); Calcium,Total 9.1 mg/dL (7.6-11.0); Carbon Dioxide 19.9 mmol/L (21.0-32.0); Chloride 94 mmol/L (98-108); Estimated Creatinine Clearance 118.71 ml/min (50-250); Globulin 2.1 g/dL (2.2-4.2); Glucose 272 mg/dL (70-99); Potassium 4.1 mmol/L (3.3-5.1)
[2025-06-10 11:04] LABS: Hematocrit 38.6 % (40-54); Hemoglobin 13.8 g/dL (13.0-16.5); Immature Granulocytes Count 0.020 X10^3/uL (0.0-0.0); Mean Corp Hgb Conc 35.8 g/dL (32-36); Mean Corpuscular Volume 81.4 fL (80-94); Mean Platelet Vol. 9.9 fl (6.2-12.0); NRBC Flagged by Analyzer 0.4 % (0-5); Platelet Count 209 K/mm3 (150-450); RBC Distribution Width CV 12.4 % (11.6-14.6); RBC Distribution Width SD 36.4 fl (35.1-43.9); Red Blood Count 4.74 M/mm3 (4.6-6.2); White Blood Count 5.1 K/mm3 (4.4-11.0)
[2025-06-10 11:34] VITALS: BP 145/90; PULSE 80; RESP 16; TEMP 36.6; O2SAT 99
== END 2025-06-10 11:38 | disposition home or self-care (01) ==
PROVIDERS: Emergency Provider Emergency Medicine; PCP Family Medicine; Visit Provider Emergency Medicine
DX: E11.65 Type 2 diabetes mellitus with hyperglycemia (principal); E88.819 Insulin resistance, unspecified; Z87.891 Personal history of nicotine dependence
CPT/HCPCS: 80053; 85025; 96360; 99283; A4216